=== PATIENT | female | born 1935 | race Caucasian/White ===

== ENCOUNTER 2017-10-17 13:50 | Inpatient (IN) | payer MEDICARE, OTHER ==
--- NOTE | 2017-10-17 14:08 | ED ---
Adult Trauma - History of Current Complaint Chief Complaint: EDWeakness Stated Complaint: WEAKNESS/FALL Time Seen by Provider: 10/17/17 14:03 Pain Intensity: 0 - Allergy/Home Medications Allergies/Adverse Reactions: Allergies Allergy/AdvReac Type Severity Reaction Status Date / Time MS Penicillins [Penicillins] Allergy Severe Rash Verified 09/13/13 15:45 MS Sulfa Drugs [Sulfa Drugs] Allergy Severe Rash Verified 09/13/13 15:45 PMH/Surg Hx/FS Hx/Imm Hx Endocrine/Hematology History: Denies: Hx Diabetes, Hx Thyroid Disease Cardiovascular History: Reports: Hx Hypertension Respiratory History: Denies: Hx Asthma, Hx Chronic Obstructive Pulmonary Disease (COPD) GI History: Denies: Hx Ulcer Musculoskeletal History: Denies: Hx Osteoporosis - Cancer History Hx Chemotherapy: No Hx Radiation Therapy: No - Surgical History Surgery Procedure, Year, and Place: Bilateral TKR 1994, hiatal hernia repair x2 2009, bilat. knee replacements Infectious Disease History: No Infectious Disease History: Denies: Hx Hepatitis, Hx Human Immunodeficiency Virus (HIV), Traveled Outside the [place] in Last 30 Days - Social History Alcohol Use: Occasionally Alcohol Amount: WINE W/ MEALS Substance Use Type: Reports: None Hx Tobacco Use: No Smoking Status (MU): Never Smoked Tobacco Physical Exam Vital Signs On Initial Exam: Initial Vitals Temp Pulse Resp BP Pulse Ox 98.5 F 66 20 133/97 94 10/17/17 13:55 10/17/17 13:55 10/17/17 13:55 10/17/17 13:55 10/17/17 13:55 Diagnostics - Vital Signs Vital Signs Temp Pulse Resp BP Pulse Ox 10/17/17 13:55 98.5 F 66 20 133/97 94 - Laboratory Lab Statement: Any lab studies that have been ordered have been reviewed, and results considered in the medical decision making process. Discharge - Discharge Plan Referrals: Nilsa Valencia MD [Primary Care Provider] -
--- NOTE | 2017-10-17 14:10 | ED ---
Head Injury - HPI Summary HPI Summary: This is scribe Quintin Frederick documenting for attending Omreo Tabares MD. Patient is a 82 y/o F BIBA w c/o falling from a standing position and hitting her head on the floor today at around 12:30. She notes she was at baseline health in the morning today. She states she stood up from a sitting position when she suddenly collapsed. She was not able to get up from the floor. Therefore, she activated her alarm and EMS appear to the house. On triage, it is reported she felt dizzy but in the room she denies dizziness during the episode. LOC is denied in the room as well. On triage, pain is denied. Patient denies chest pain, hip pain, back pain, blurred vision, SOB, and nausea. She reports she may have had a headache after falling. However, patient notes LE edema. Any similar prior episodes are denied. On triage, nothing is noted to aggravate/alleviate Sx. Home medications and allergies are noted. - History Of Current Complaint Chief Complaint: EDWeakness Stated Complaint: WEAKNESS/FALL Time Seen by Provider: 10/17/17 14:03 Hx Obtained From: Patient Mechanism Of Injury: Fall From A Standing Position Onset/Duration: Started Hours Ago - fall occurred around 12:30 Severity Currently: None - on triage, pain is denied Pain Intensity: 0 Pain Scale Used: 0-10 Numeric - 0/10 Aggravating Factor(s): Other: - Nothing Alleviating Factor(s): Other: - Nothing Associated Signs And Symptoms: Swelling - bilateral LE edema is noted, Headache - maybe, Other: - NEGATIVE: chest pain, hip pain, back pain, blurred vision, SOB , LOC, dizziness and nausea - Allergies/Home Medications Allergies/Adverse Reactions: Allergies Allergy/AdvReac Type Severity Reaction Status Date / Time Penicillins Allergy Intermediate Rash Verified 10/17/17 14:22 Sulfa (Sulfonamide Allergy Intermediate Rash Verified 10/17/17 14:22 Antibiotics) Home Medications: Home Medications Acetaminophen [Acetaminophen ER] 1,300 mg PO DAILY 10/17/17 [History Confirmed 10/17/17] Acetaminophen/Diphenhydramine [Acetaminophen Pm Caplet] 1 - 2 each PO BEDTIME PRN 10/17/17 [History Confirmed 10/17/17] Alendronate (NF) [Fosamax (NF)] 70 mg PO WEEKLY 10/17/17 [History Confirmed ] Zdkwi-I-Kwlvapsqisxqm [Beano Meltaways] 2 tab PO DAILY PRN 10/17/17 [History Confirmed 10/17/17] Aspirin EC TAB* [Ecotrin EC Low Dose 81 MG*] 81 mg PO DAILY 10/17/17 [History Confirmed 10/17/17] Atorvastatin* [Lipitor*] 40 mg PO DAILY 10/17/17 [History Confirmed 10/17/17] Chlorthalidone TAB* [Hygroton TAB*] 25 mg PO DAILY 10/17/17 [History Confirmed 10/17/17] Clobetasol 0.05% OINT* 1 applic TOPICAL BID PRN 10/17/17 [History Confirmed ] Diclofenac 1% GEL (NF) [Voltaren 1% GEL (NF)] 2 g TOPICAL QID 10/17/17 [History Confirmed 10/17/17] Etanercept SYR (NF) [Enbrel (NF)] 50 mg SUBCUT WEEKLY 10/17/17 [History Confirmed 10/17/17] Fluticasone NASAL SPRAY 50MCG* [Flonase NASAL SPRAY 50MCG*] 2 spray BOTH NARES DAILY 10/17/17 [History Confirmed 10/17/17] Losartan TAB* [Cozaar TAB*] 100 mg PO DAILY 10/17/17 [History Confirmed 10/17/17 ] Menthol/Camphor [Sarna] 1 applic TOPICAL DAILY PRN 10/17/17 [History Confirmed 10/17/17] Multivit with Iron,Minerals [Spectravite Senior] 1 each PO DAILY 10/17/17 [ History Confirmed 10/17/17] Pantoprazole TAB (NF) [Protonix TAB (NF)] 40 mg PO DAILY 10/17/17 [History Confirmed 10/17/17] Phenylephrine HCl [Sinus PE Decongestant] 10 mg PO Q4H PRN 10/17/17 [History Confirmed 10/17/17] Polyethylene Glycol 3350* [Miralax*] 17 g PO BID PRN 10/17/17 [History Confirmed 10/17/17] Triamcinolone 0.5% CREAM(NF) [Triamcinolone 0.5% CREAM*] 1 applic TOPICAL BID PRN 10/17/17 [History Confirmed 10/17/17] Verapamil SR TAB* [Calan Sr TAB*] 240 mg PO BID 10/17/17 [History Confirmed ] amLODIPine TAB* [Norvasc 5 mg TAB*] 5 mg PO DAILY 10/17/17 [History Confirmed ] diPHENhydraMINE PO* [Benadryl PO 25 MG TAB*] 25 mg PO Q6H PRN 10/17/17 [History Confirmed 10/17/17] PMH/Surg Hx/FS Hx/Imm Hx Endocrine/Hematology History: Denies: Hx Diabetes, Hx Thyroid Disease Cardiovascular History: Reports: Hx Hypertension Respiratory History: Denies: Hx Asthma, Hx Chronic Obstructive Pulmonary Disease (COPD) GI History: Denies: Hx Ulcer Musculoskeletal History: Denies: Hx Osteoporosis - Cancer History Hx Chemotherapy: No Hx Radiation Therapy: No - Surgical History Surgery Procedure, Year, and Place: Bilateral TKR 1994, hiatal hernia repair x2 2009, bilat. knee replacements Infectious Disease History: No Infectious Disease History: Denies: Hx Hepatitis, Hx Human Immunodeficiency Virus (HIV), Traveled Outside the [place] in Last 30 Days - Family History Known Family History: Negative: Blood Disorder - Social History Alcohol Use: Occasionally Alcohol Amount: WINE W/ MEALS Substance Use Type: Reports: None Hx Tobacco Use: No Smoking Status (MU): Never Smoked Tobacco Review of Systems Negative: Blurred Vision Negative: Chest Pain Negative: Shortness Of Breath Negative: Nausea Positive: Edema - bilateral LE, Other - NEGATIVE: hip pain, back pain Neurological: Other - NEGATIVE: dizziness Positive: Headache - maybe . Negative: Syncope All Other Systems Reviewed And Are Negative: Yes Physical Exam - Summary Physical Exam Summary: VITAL SIGNS: Reviewed. GENERAL: Patient is an elderly, fragile female who is lying comfortable in the stretcher. Patient is not in any acute respiratory distress. HEAD AND FACE: No signs of trauma. No ecchymosis, hematomas or skull depressions. No sinus tenderness. EYES: PERRLA, EOMI x 2, No injected conjunctiva, no nystagmus. EARS: Hearing grossly intact. Ear canals and tympanic membranes are within normal limits. MOUTH: Oropharynx within normal limits. NECK: Supple, trachea is midline, no adenopathy, no JVD, no carotid bruit, no c- spine tenderness, neck with full ROM. CHEST: Symmetric, no tenderness at palpation LUNGS: Clear to auscultation bilaterally. No wheezing or crackles. CVS: Regular rate and rhythm, S1 and S2 present, no murmurs or gallops appreciated. ABDOMEN: Soft, non-tender. No signs of distention. No rebound no guarding, and no masses palpated. Bowel sounds are normal. EXTREMITIES: FROM in all major joints, LE edema, no cyanosis or clubbing. NEURO: Alert and oriented x 3. No acute neurological deficits. Speech is normal and follows commands. SKIN: Dry and warm Triage Information Reviewed: Yes Vital Signs On Initial Exam: Initial Vitals Temp Pulse Resp BP Pulse Ox 98.5 F 66 20 133/97 94 10/17/17 13:55 10/17/17 13:55 10/17/17 13:55 10/17/17 13:55 10/17/17 13:55 Vital Signs Reviewed: Yes Diagnostics - Vital Signs Vital Signs Temp Pulse Resp BP Pulse Ox 10/17/17 13:55 98.5 F 66 20 133/97 94 - Laboratory Result Diagrams: 10/17/17 14:17 10/17/17 14:17 Lab Statement: Any lab studies that have been ordered have been reviewed, and results considered in the medical decision making process. - Radiology CXR Xray Interpretation: No Acute Changes Radiology Interpretation Completed By: Radiologist - No active disease. This report was reviewed by ED physician. - CT Cervical Spine CT CT Interpretation: Positive (See Comments) CT Interpretation Completed By: Radiologist - No evidence for fracture or subluxation. Moderate cervical spondylosis. Bilateral thyroid nodules recommend an outpatient thryoid ultrasound for further evaluation. This report was reviewed by ED physician. Brain CT CT Interpretation: No Acute Changes CT Interpretation Completed By: Radiologist - No acute intracranial pathology. Chronic small vessel ischemic change. This report was reviewed by ED physician. 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/Release Non-Paretic Hand: Both Correctly Best Gaze (Only Horizontal Eye Movement): Normal Visual Field Testing: No Visual Loss Facial Paresis-Pt to Smile & Close Eyes or Grimace Symmetry: Normal/Symmetrical Motor Function - Right Arm: No Drift-Holds 10 Seconds Motor Function - Left Arm: No Drift-Holds 10 Seconds Motor Function - Right Leg: No Drift-Holds 10 Seconds Motor Function - Left Leg: No Drift-Holds 10 Seconds Limb Ataxia-Must be out of Proportion to Weakness Present: Present in Two Limbs Sensory (Use Pinprick to Test Arms/Legs/Trunk/Face): Normal Best Language (Describe Picture, Name Items): No Aphasia Dysarthria (Read Several Words): Normal Extinction and Inattention: No Abnormality Total Score: 2 Re-Evaluation - Re-Evaluation First Eval Re-Evaluation Time: 15:55 Comment: Patient's condition was reviewed. After re-evaluation, it was determined that a consult with Dr. Fernandez was needed. Second Eval Re-Evaluation Time: 16:57 Comment: Discussed labs and test results as well as the decision to admit the patient to [facility] [place]. Head Injury Course/Dx Assessment/Plan: This patient is an 82-year-old female who presents to the emergency department with a chief complaint of an accidental fall and unable to get up from the floor. Patient reports that approximately between 12 and 12:30 today her knees buckle down and she fell down. She denies any loss of consciousness, she reports that she had possibly had a headache as the floor, but she was not able to get up from the floor. Therefore and she activated alarm and EMS appear to the house. Patient denies any pain, she is able to move all her extremities and she is alert and oriented 3. Initial exam the patient is alert and oriented 3 and she has not neurological focal deficits except for slight ataxia. NIH score it was equal to 1. Test results without any significant abnormality except for potassium level of 3.2, creatinine of 1.21, glucose 124. Urinalysis is negative for UTI. Head CT impression: No acute interconnected pathology. Chronic vessel ischemic changes. Chest x-ray impression: No acute cardiopulmonary disease. Since the patient had ataxia I discussed the case with Dr. 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 Therefore he recommends aspirin, Plavix and admission to the hospitalist. He will order an MRI and MRA a from the pain and carotid ultrasound. He will also follow with the results. The patient continues to be hemodynamically stable and she is alert and 3. Patient agrees to be admitted to the hospital. I discussed the my findings test results and the plan with Dr. Valencia was the primary care physician and she recommends for the hospitalist service to admit the patient and she will see the patient the morning. Therefore I discussed the case with Dr. Tomlinson from the hospitalist services and she accepted the patient for admission. Patient is hemodynamically stable alert and 3 - Diagnoses Provider Diagnoses: Ataxia, Unsteady gait, Ischemic stroke, Fall from standing - Physician Notifications Discussed Care Of Patient With: Mayra Fernandez Time Discussed With Above Provider: 16:06 Instructed by Provider To: Other - 16:06 --Dr. Fernandez was consulted. He will review patient in the room. 16:30 -- Dr. Fernandez talked to Dr. Tabares about the patient's case. He recommends admission to hospital. 16:36 -- Dr. Tomlinson was consulted; she accepts patient for admission to hospital. 17:02 -- Dr. Valencia was consulted as the patient belongs to Dr. Valencia. Dr. Valencia will see the patient tomorrow morning. Discharge - Sign-Out/Discharge Documenting (check all that apply): Patient Departure - admit - Discharge Plan Condition: Good Disposition: ADMITTED TO [facility] Referrals: Nilsa Valencia MD [Primary Care Provider] -
[2017-10-17 14:29] LABS: ABS Basophils 0.1 10^3/ul (0-0.2); ABS Eosinophils 0.1 10^3/ul (0-0.6); ABS Lymphocytes 1.1 10^3/ul (1.0-4.8); ABS Monocytes 0.7 10^3/ul (0-0.8); ABS Neutrophils 6.4 10^3/ul (1.5-7.7); ABS Nucleated RBC 0 10^3/ul; Eosinophil % 1.2 % (0-6); Hematocrit 39 % (35-47); Hemoglobin 13.5 g/dl (12.0-16.0); Mean Corpuscular HGB Conc 34 g/dl (31-36); Mean Corpuscular Hemoglobin 33 pg (27-31); Mean Corpuscular Volume 95 fL (80-97); Mean Platelet Volume 6.7 um3 (7.4-10.4); Nucleated Red Blood Cells % 0.1; Platelet Count 223 10^3/ul (150-450); Red Blood Count 4.15 10^6/ul (4.00-5.40); Red Cell Distribution Width 14 % (10.5-15); White Blood Count 8.3 10^3/ul (3.5-10.8)
[2017-10-17 14:34] LABS: Urine Appearance Clear; Urine Blood Negative (Negative); Urine Color Yellow; Urine Ketones Negative (Negative); Urine Protein Negative (Negative); Urine Specific Gravity 1.009 (1.010-1.030); Urine Urobilinogen Negative (Negative)
[2017-10-17 14:49] LABS: EGFR Non-African American 42.7 (>60)
[2017-10-17] MEDS ORDERED: Potassium Chlor TAB* 20 MEQ TAB.ER PO ONE (14:56)
--- NOTE | 2017-10-17 14:57 | RAD ---
INDICATION: Weakness COMPARISON: January 14, 2017 TECHNIQUE: An AP portable view obtained at 1426 hours is submitted. FINDINGS: Bones/Soft Tissues: There are no acute bony findings. 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 Lungs: There are no infiltrates. There is mild hyperinflation Pleura: There are no pleural effusions. Other: None IMPRESSION: NO ACTIVE DISEASE.
--- NOTE | 2017-10-17 15:31 | RAD ---
HISTORY: weakness, fall COMPARISONS: November 01, 2010 TECHNIQUE: Multiple contiguous axial CT scans were obtained of the head without intravenous contrast. FINDINGS: HEMORRHAGE/INFARCT: There is no hemorrhage or acute infarct. MASSES/SHIFT: There is no mass or shift. EXTRA-AXIAL SPACES: There are no extra-axial fluid collections. SULCI AND VENTRICLES: The sulci and ventricles are normal in size and position for the patient's stated age. CEREBRUM: There is hypoattenuation of the periventricular and subcortical white matter. BRAINSTEM: There are no focal parenchymal abnormalities. CEREBELLUM: There are no focal parenchymal abnormalities. VESSELS: There is calcification of the cavernous segments of the internal carotid arteries bilaterally and of the distal vertebral arteries bilaterally. PARANASAL SINUSES: The paranasal sinuses are clear. ORBITS: The orbits are unremarkable. BONES AND SOFT TISSUE: No bone or soft tissue abnormalities are noted. OTHER: None IMPRESSION: NO ACUTE INTRACRANIAL PATHOLOGY. CHRONIC SMALL VESSEL ISCHEMIC CHANGE
--- NOTE | 2017-10-17 15:54 | RAD ---
INDICATION: Trauma. COMPARISON: There are no prior studies available for comparison. TECHNIQUE: Contiguous axial sections were obtained from the skull base through the T1 vertebra. Images were reconstructed in the sagittal and coronal planes. FINDINGS: There is straightening of the cervical spine with loss of the normal cervical lordosis. No prevertebral soft tissue swelling or fracture is seen. At the C3-C4 level there is mild posterior uncinate process spurring. No spinal canal narrowing is present. There is mild bilateral neural foraminal narrowing. At C4-C5 level there is mild posterior uncinate process spurring. No significant spinal canal narrowing is present. There is mild to moderate bilateral neuroforaminal narrowing. At the C6-C7 level there is moderate posterior uncinate process spurring which causes mild to moderate spinal canal narrowing. There is moderate bilateral neural foraminal narrowing. At the C6-C7 level there is mild posterior uncinate process spurring which causes mild spinal canal narrowing. There is mild bilateral neural foraminal narrowing. The lung apices appear clear. There are bilateral thyroid nodules measuring up to 1.4 cm in size. IMPRESSION: 1. NO EVIDENCE FOR FRACTURE OR SUBLUXATION. 2. MODERATE CERVICAL SPONDYLOSIS. 3. BILATERAL THYROID NODULES RECOMMEND AN OUTPATIENT THYROID ULTRASOUND FOR FURTHER EVALUATION.
[2017-10-17] MEDS ORDERED: Clopidogrel TAB* 75 MG PO ONE (16:50)
[2017-10-17] MEDS ORDERED: Aspirin 81 mg CHEW TAB* 81 MG TAB.CHEW PO ONE (16:50)
[2017-10-17] MEDS ORDERED: Magnesium Hydroxide LIQ* 30 ML UDC PO PRN (17:32)
[2017-10-17] MEDS ORDERED: Al Hydrox/Mg Hydrox/Simet LIQ* 30 ML UDC PO PRN (17:32)
[2017-10-17] MEDS ORDERED: Albuterol 2.5 MG/3 ML NEB.SOL* (0.083%) INH PRN (17:32)
[2017-10-17] MEDS ORDERED: Acetaminophen TAB* 325 MG PO PRN (17:32)
[2017-10-17] MEDS ORDERED: Ondansetron INJ* 2 MG/ML VIAL IV PRN (17:32)
[2017-10-17] MEDS ORDERED: amLODIPine TAB* 5 MG PO SCH (18:00)
--- NOTE | 2017-10-17 20:09 | CONS ---
NEUROLOGY CONSULTATION REPORT: DATE OF CONSULT: 10/17/17 CONSULTING PHYSICIAN: Dr. Omeor Tabares. REASON FOR CONSULT: Ataxia. CHIEF COMPLAINT: Fall and inability to stand. 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 The patient woke up in normal state of health at 7:30 a.m. today. 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 At 12:30 p.m., the patient stood up from a seated position after sitting down for a few hours and then felt slightly lightheaded and she fell to the ground. Since the fall, she was unable to stand. She checked her extremities in the upper and lower extremities, she was moving just fine. She contacted EMS via [employer]. She did hit her head, but did not lose consciousness. She hit her head on the hardwood floor, but it was not significant head injury. Since then, the patient has trouble standing. She is ataxic towards the right side. She feels that she may have had a stroke. The patient does take aspirin 81 mg regularly, but ran out of aspirin approximately 1 week ago and she has not taken a dose since then. She denied any new focal weakness or paresthesias. She denied any headaches, visual disturbance, or swallowing dysfunction. She has never had any similar symptoms in the past. She has never lost consciousness when she fell. She denied any impairment in her bowel or bladder functions. The NIH stroke scale was done today at 1630 and showed an NIH stroke scale of 2 for motor dysmetria and pronator drift on the right. 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 She had a positive PPD on 09/16/12, anemia, atrophic vaginitis, tinnitus. MEDICATIONS: 1. Losartan 100 mg tablet daily. 2. Atorvastatin 40 mg tablet daily. 3. Verapamil extended release 240 mg 24-hour capsule. 4. Chlorthalidone 25 mg tablet. 5. Amlodipine 5 mg tablet daily. 6. Fluticasone 50 mcg nasal spray suspension, take 2 sprays nasally daily each nostril as needed for allergies. 7. Alendronate 70 mg tablet daily. 8. Clobetasol 0.05 topical cream. 9. Pantoprazole 40 mg tablet delayed release. 10. Triamcinolone acetonide topical cream. 11. Voltaren. 12. MiraLAX 17 g oral powder. FAMILY HISTORY: No family history of stroke or seizures. Her father suffered from tuberculosis. SOCIAL HISTORY: The patient lives alone. She enjoys drinking alcohol occasionally, but no more than 1 to 2 drinks a night. She denied any tobacco use. 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 REVIEW OF SYSTEMS: A 14-point review of systems was obtained and otherwise negative except for what was mentioned in the HPI. PHYSICAL EXAM: Vitals: Temperature of 98.5, heart rate 75, respiratory rate of 14, oxygen saturation of 96, and blood pressure of 159/93. General: This is a well-nourished, well-developed professional female, in no acute distress. She is cooperative. She is very pleasant. Head is atraumatic, normocephalic without any obvious abnormalities. Eyes: Conjunctivae/corneas are clear with no scleral icterus. Neck is supple and symmetrical with no carotid bruit. Lungs are clear to auscultation bilaterally. Nonlabored breathing. Cardiovascular: Regular rate and rhythm with normal S1, S2. Radial pulses are palpable. Extremities: Normal range of motion with no cyanosis. The patient has bunions and foot deformities bilaterally, right worse than left. Skin: No skin lesions or laceration. Psych: Affect is broad and normal mood. Easy to establish rapport. Neurological Examination: Mental Status: Awake, alert, and oriented to person, place, time, and general circumstances. Speech and language including expression, naming, repetition, and comprehensions were assessed and found to be normal. Cranial Nerves: Normal confrontation bilaterally. Pupils are mid range and reactive to light. Normal consensual response. Extraocular muscles are intact. No ptosis. No conjugate or asymmetrical nystagmus. Sensation is intact on forehead, cheeks, and jaw region. There is a slight loss of the nasolabial fold on the right, but not significant. No facial asymmetry. She is able to hear throughout the history process. Tongue is symmetrical and midline with no atrophy or fasciculation. Motor: Right/left, no abnormal movements. Questionable pronator drift on the right upper extremity. She has restricted range of motion in bilateral shoulders, right worse than left, due to arthritis. However, she does have elbow extension and shoulder abduction weakness, right greater than left, otherwise 5/5 strength in the distal upper extremities. She also has weakness on hip flexion and knee flexion as well as ankle dorsiflexion on the right side in a long tract pyramidal pattern. Otherwise, strength is 5/5 on the left lower extremity. Reflexes right/left: Brachioradialis 1/1, biceps 1/1, triceps 1/1, patella trace/trace, ankle 0/0, plantar new plantar response. On the right, 2+ on the left. Patella on the right is 3+, 1+ on the left. Ankles are absent throughout. New plantar responses. Sensation is intact to light touch throughout. She has absent vibration at the toes, but intact at the medial malleolus at 10 seconds. Proprioception is impaired at the toes. Dysmetria to [id number] and heel-to- cerna testing on the right side. Rapid alternative movement is decreased on the right upper extremity. Gait: Wide- based, ataxic towards the right and retropulsion. DIAGNOSTIC STUDIES/LAB DATA: WBC 8.3. Sodium of 140, potassium 3.2, creatinine is 1.21, glucose of 124, calcium of 10.7. Urinalysis, no dysuria. TSH is 1.19. CT head without contrast was completed today that showed no evidence of intracranial abnormality. Cervical spine CT was also completed and reported to show no evidence of fractures or subluxation. There is moderate cervical spondylosis, bilateral thyroid nodule. Recommend an outpatient thyroid ultrasound for further evaluation. Chest x-ray was completed and also reported to show no active disease and electrocardiogram was done and reported normal sinus rhythm. ASSESSMENT: 1. 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 On neurological examination, the patient has long tract pyramidal weakness on the right upper and lower extremities as well as some dysmetria concerning for an acute right cerebellar or left hemispheric ischemic infarction. The patient recently stopped taking aspirin for 1 week increasing her risk of developing a stroke. The mechanism of the stroke could be small vessel ischemia due to chronic hypertension; however, cardioembolic event will need to be also excluded. NIH stroke scale is 2. She is not a candidate for IV t-PA due to minimal neurological deficit as well as she is outside the therapeutic window. She was not a candidate for mechanical thrombectomy due to low NIH stroke scale. However , if her neurological examination continues to deteriorate, the patient will need CT head and neck stat for further evaluation. 2. Hypertension - allow permissive hypertension. 3. Possible dehydration - the patient's creatinine is slightly elevated. She has not had anything to drink since last night. RECOMMENDATIONS: Admit to the hospital service for further stroke workup and post stroke monitoring. Neuro checks every 4 hours x24 hours. MRI of the brain and MRA of brain were ordered. I also ordered carotid sonogram and a 2-D transthoracic echo. Please place on telemetry. We will check fasting lipid profile, vitamin B12, A1c. Please give her aspirin 81 mg x1 and Plavix 75 mg x1 now and continue both dual-antiplatelet therapy. We will decide on statin therapy depending on her LDL level. Allow permissive blood pressure control of systolic blood pressure less than 180. PT/OT/FIELD CR[employer] I [employer] evaluate and treat. Please perform a bedside swallow evaluation before giving her any diet. I also started the patient on IV fluid for the next 24 hours at a rate of 75 mL of normal saline an hour. Stroke education was completed. Do not place urinary catheter unless there is evidence of urinary retention. VTE prophylaxis with subcutaneous heparin injection 5000 units t.i.d. Long-term anticoagulation therapy is not indicated at this time. TIME SPENT: I spent a total of 75 minutes and greater than 50% was spent directly reviewing the medical chart, obtaining history, examining the patient, education and counseling, and discussing the treatment plan and prognosis with the patient and Dr. Tabares. I will continue to follow. [id number]/[facility] #: [id number] [facility]
--- NOTE | 2017-10-17 20:16 | RAD ---
INDICATION: Right arm dysmetria and ataxia. COMPARISON: Comparison is made with a prior CT of the brain from October 17, 2017 and a prior MRI of the brain from November 02, 2010. TECHNIQUE: Sagittal T1, axial T1, T2, susceptibility, FLAIR and diffusion weighted images were obtained. FINDINGS: The ventricles, cisterns and sulci are prominent consistent with diffuse atrophy. There are prominent areas of increased signal intensity on T2-weighted images present within the subcortical and periventricular white matter most consistent with severe chronic small vessel ischemic changes. There appears to be an old lacunar infarct within the left thalamus. No other focal abnormalities or mass effect are seen. There is a small focal area of restricted diffusion involving the cortex and subcortical white matter in the left parafalcine region in the left parietal lobe most consistent with an acute to subacute infarct. There is evidence of old hemosiderin deposition in the cerebellar hemispheres. The visualized portion of the paranasal sinuses and mastoid air cells appear clear. IMPRESSION: 1. SMALL ACUTE TO SUBACUTE NONHEMORRHAGIC INFARCT IN THE CORTEX AND SUBCORTICAL WHITE MATTER IN THE PARA MIDLINE LEFT PARIETAL LOBE. 2. ATROPHY AND FINDINGS CONSISTENT WITH SEVERE CHRONIC SMALL VESSEL ISCHEMIC CHANGES. 3. OLD LACUNAR INFARCT IN THE LEFT THALAMUS.
--- NOTE | 2017-10-17 20:20 | RAD ---
INDICATION: Right arm dysmetria and ataxia. COMPARISON: Comparison is made with a prior MRI of the brain from October 17, 2017. TECHNIQUE: A 3-D time of flight magnetic resonance angiogram was performed around the [place] of [place]. Images were reconstructed in the maximum intensity projection format. FINDINGS: The internal carotid, anterior and middle cerebral arteries appear patent without evidence for high-grade stenosis or occlusion. The vertebral, basilar and posterior cerebral arteries appear patent without evidence for high-grade stenosis or occlusion. The right posterior cerebral artery arises from the posterior communicating artery consistent with normal variation. There is a dominant left vertebral artery. No aneurysm or vascular malformation is seen. IMPRESSION: NEGATIVE EXAM.
[2017-10-17] MEDS: NS 0.9% 1000 ML* 1,000 ML IV SCH (20:22)
--- NOTE | 2017-10-17 20:25 | HP ---
CC: Dr. Valencia * ADMISSION HISTORY AND PHYSICAL: DATE OF ADMISSION: 10/17/17 PATIENT OF: Alecia Tomlinson DO. PRIMARY CARE PROVIDER: Dr. Nilsa Valencia. ATTENDING HOSPITALIST: Alecia Tomlinson DO.* (DICTATED BY JODI MIRAMONTES) CHIEF COMPLAINT: Weakness and fall at home. 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 The patient notes that she has been in her usual state of health until this morning when she got up and was walking at home and suddenly collapsed. She maintained her consciousness and denied any head trauma or bony injury. She laid on the ground and was not able to get up at all. She has never experienced any similar complaints in the past. She denied any headache, dizziness, chest pain, double vision, nausea, vomiting, or diaphoresis prior to her falling episode. She denied any slurred speech, drooling, or any history of CVA or TIA in the past. She was able to ask for a help and was brought by ambulance for evaluation in emergency room. She had a laboratory workup that revealed normal CBC and normal chemistry panel with exception for mild dehydration as well as decreased potassium. She had a brain CT that showed no evidence of intracranial bleed. Her chest x-ray was also showed no acute changes. Neurological evaluation was performed by Dr. Fernandez, who suspected ischemic stroke given her ongoing symptoms and MRI was ordered and pending at the time of admission. The patient herself reports doing very well with the exception that she cannot bear weight or stay up on her feet. She is able to move her extremities both upper and lower in bed, talk with clean speech and passed her dysphagia evaluation and has been eating and drinking in the emergency room. A call was made to Dr. Valencia by the emergency department provider, who explained the case and the patient was accepted to be admitted by the hospitalist services to telemetry unit for further evaluation of possible CVA. PAST MEDICAL HISTORY: Significant for: 1. Hypertension. 2. GERD. 3. Hyperlipidemia. 4. Rheumatoid arthritis. 5. Allergic rhinitis. 6. Chronic pain. 7. Chronic constipation. 8. Osteoarthritis. PAST SURGICAL HISTORY: Includes: 1. Bilateral knee replacement in 1994. 2. Benign lesions removed from her tongue in the past. 3. Foot surgery in 1995. 4. Tubal ligations many years ago. 5. Matilde fundoplication back in 2010, and revised again after a slipped Matilde by Dr. Pearson. 6. Laparoscopic repair of large paraesophageal hiatal hernia back in 2010 as well. 7. Most recently an aortic aneurysm repair in 2014. CURRENT MEDICATIONS: Her medications at home include: 1. Tylenol 650 mg p.o. q.6 hours as needed for pain or fever. 2. Tylenol PM 1 to 2 tablets q.h.s. 3. Fosamax 70 mg p.o. weekly. 4. Norvasc 5 mg p.o. daily. 5. Aspirin 81 mg p.o. daily. 6. Lipitor 40 mg p.o. daily. 7. Hygroton 25 mg p.o. daily. 8. Diclofenac 1% gel topical 4 times a day as prescribed. 9. Benadryl 25 mg p.o. q.6 hours for allergic reaction. 10. Enbrel 50 mg subcu injection weekly. 11. Flonase nasal spray 50 mcg 2 sprays in both nares daily. 12. Losartan 100 mg p.o. daily. 13. Multivitamin with iron 1 tablet p.o. daily. 14. Protonix 40 mg p.o. daily. 15. MiraLAX 17 g p.o. b.i.d. as needed for constipation. 16. Sinus PE Decongestant 10 mg q.4 hours as needed for rhinorrhea. 17. Verapamil 240 mg p.o. b.i.d. ALLERGIES: Include PENICILLINS and SULFONAMIDE antibiotics. FAMILY HISTORY: She has a sister with breast cancer, father with hypertension and tuberculosis. 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 She lives alone, very independent. She has a son, who lives in [place], [place]. She never smoked and continued to drink occasional alcoholic beverage. She described her next door neighbor as her health care proxy carrier and she confirmed her DNR status and MOLST from is updated at primary care physician per the patient. REVIEW OF SYSTEMS: See HPI. Otherwise, 14 points review of systems were performed and were essentially negative. PHYSICAL EXAMINATION GENERAL: She is a pleasant, elderly female, healthy appearing, and in no acute distress or discomfort at the time of admission. VITAL SIGNS: Most recent set of vitals was blood pressure of 136/111, temperature of 98.5, pulse of 75, respirations of 17 with O2 sat of 98% on room air. HEENT: Head is normocephalic, atraumatic. Sclerae anicteric. PERRLA. EOMs intact. Oropharynx is pink and moist. NECK: Supple. Trachea midline. No cervical adenopathy or thyromegaly. LUNGS: Clear to auscultation bilaterally. HEART: Regular rate and rhythm. There is a very faint systolic murmur heard, but no gallops or rubs. BACK: Normal curvature. No CVA tenderness. ABDOMEN: Soft, nontender, nondistended. There is no hernias, masses, or hepatosplenomegaly. EXTREMITIES: Without cyanosis, clubbing or edema. Handgrip was equal bilaterally. Tongue was midline. RECTAL: Exam deferred at this time. NEUROLOGIC: Full neurological exam was done by Dr. Fernandez during his consultation. Please refer to his consult note. LABORATORY WORKUP: CBC with white count of 8300, hemoglobin of 13.5, hematocrit of 39, and platelets of 223. Her chemistry panel was sodium of 140, potassium 3.2, chloride 101, CO2 of 30, BUN of 23, and creatinine of 1.2. Her glucose was 124, lactic acid 1.5. LFTs, CRP, TSH all within normal limits. BNP was slightly elevated at 273. ACCESSORY DIAGNOSTIC DATA: Brain CT with no acute findings. Chest x-ray, no active disease. Cervical spine CT with degenerative changes noted. EKG showed sinus rhythm, no ST changes. IMPRESSION: An 82-year-old female with past medical history significant for hypertension, rheumatoid arthritis, osteoporosis, and hyperlipidemia, who presented to the emergency room with sudden onset of lower extremity weakness resulting in a fall and inability to get up and ambulate, who was evaluated by neurologic services and have high suspicion for ischemic cerebrovascular accident. ASSESSMENT AND PLAN: 1. Probable cerebrovascular accident. The patient will be admitted to the telemetry floor for close observation and neurology checks every [address] Fernandez has seen the patient in consultation already and MRI, MRA, as well as carotid ultrasounds are pending at the time of admission. The patient has expressed good speech and has no upper body neurological deficit. She had passed her swallowing evaluation and she is allowed to eat regular diet for the time being. She was given full dose aspirin in the ED and will continue her baby aspirin. She was also given a dose of Plavix in the ED. She appears to be slightly dehydrated and IV fluids were ordered by Dr. Fernandez. 2. Hypertension. I will maintain her on her regular medication; however, we would like her blood pressure to maintain slightly above normal to reassure perfusion to her brain. She may take her verapamil dose this evening and we will reassess in the morning before given her losartan or verapamil on the next day. I will also maintain her aspirin dose on a daily basis as well as her Lipitor for possibility of cerebrovascular accident. 3. Hyperlipidemia. She will continue her statin therapy. 4. Seasonal allergies and rhinitis. We will continue her Flonase spray as well as Benadryl to take as needed. 5. DVT prophylaxis. The patient is a high risk and will be covered with subcu heparin. 6. Code status. She confirmed her DNR status and she tells me that her form is updated by her primary care physician. 7. FEN. We will keep her on regular unrestricted diet and follow her up accordingly. 8. Disposition. Admit to telemetry for close observation, neurologic checks and await MRI, MRA, as well as carotid ultrasound results. TIME SPENT: Approximately 60 minutes was spent admitting this patient with greater than 50% on taking history and performing physical exam. I have discussed the case with my attending, Dr. Tomlinson, who agreed to plan of care. JODI MIRAMONTES [id number]/[facility] #: [id number] EMELI
[2017-10-17] MEDS: Heparin VIAL(*) 5000 UNITS/ML VIAL (FIVE THOUSAND) SUBCUT SCH (20:50)
[2017-10-17] MEDS ORDERED: Verapamil SR TAB* 240 MG PO SCH (21:00)
[2017-10-18] MEDS: oxyCODONE/Acetamin 5/325 MG* TAB PO PRN ×2 (01:30→20:02)
[2017-10-18] MEDS: diPHENhydraMINE PO* 25 MG PO PRN (01:31)
[2017-10-18] MEDS: Heparin VIAL(*) 5000 UNITS/ML VIAL (FIVE THOUSAND) SUBCUT SCH ×3 (05:26→20:50)
[2017-10-18 05:59] LABS: ABS Basophils 0.1 10^3/ul (0-0.2); ABS Eosinophils 0.2 10^3/ul (0-0.6); ABS Lymphocytes 2.1 10^3/ul (1.0-4.8); ABS Monocytes 0.8 10^3/ul (0-0.8); ABS Neutrophils 4.8 10^3/ul (1.5-7.7); ABS Nucleated RBC 0 10^3/ul; Eosinophil % 2.5 % (0-6); Hematocrit 32 % (35-47); Hemoglobin 11.1 g/dl (12.0-16.0); Lymphocyte % 26.4 % (25-47); Mean Corpuscular HGB Conc 34 g/dl (31-36); Mean Corpuscular Hemoglobin 32 pg (27-31); Mean Corpuscular Volume 94 fL (80-97); Mean Platelet Volume 6.4 um3 (7.4-10.4); Nucleated Red Blood Cells % 0.1; Platelet Count 176 10^3/ul (150-450); Red Blood Count 3.43 10^6/ul (4.00-5.40); Red Cell Distribution Width 13 % (10.5-15)
[2017-10-18 06:14] LABS: EGFR Non-African American 42.3 (>60)
--- NOTE | 2017-10-18 07:37 | RAD ---
INDICATION: Carotid stenosis COMPARISON: None TECHNIQUE: Transverse and longitudinal scans of the carotid and vertebral arteries were performed with espinoza scale, color Doppler, and spectral Doppler imaging. Stenosis criteria is based on flow velocities that correlate with visual internal carotid artery diameter (NASCET criteria) FINDINGS: Right carotid: There is moderate calcific plaque involving the bifurcation. There is no spectral broadening. The peak systolic velocity of the internal carotid artery is 126 cm/s and the peak diastolic velocity 27 cm/s. The ICA/CCA ratio is calculated at 2.1. This corresponds to a 50-69% diameter stenosis. Left carotid: There is moderate calcific plaque involving the bifurcation. There is no spectral broadening. The peak systolic velocity of the internal carotid artery is 94 cm/s and the peak diastolic velocity 20 cm/s. The ICA/CCA ratio is calculated at 1.5. This corresponds to a less than 50% diameter stenosis. Right vertebral: Right vertebral waveforms are normal and the flow is antegrade. Left vertebral: Left vertebral waveforms are normal and the flow is antegrade. IMPRESSION: 1. 50-69% diameter stenosis right internal carotid artery with associated calcific plaque formation. 2. Less than 50% diameter stenosis left internal carotid artery with associated calcific plaque formation. CPT II Codes: 3100F PQRS
[2017-10-18] MEDS ORDERED: NS 0.9% 500 ML* 500 ML IV ONE (08:30)
[2017-10-18] MEDS: Aspirin EC TAB* 81 MG TAB.EC PO SCH (08:39)
[2017-10-18] MEDS: Atorvastatin* 40 MG TAB PO SCH (08:39)
[2017-10-18] MEDS: Fluticasone NASAL SPRAY 50MCG* 16 gm SPRAY BTL BOTH NARES SCH (08:39)
[2017-10-18] MEDS: CMC: Pantoprazole TAB (NF) 40 MG TAB PO SCH (08:39)
--- NOTE | 2017-10-18 08:48 | PN ---
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 BP has been extremely low overnight and this morning. She was given Verapamil yesterday. She has more drooping of the right side of face and propioception loss on the right upper and lower extremities. She feels "foggy" and "oozy" this morning. This most likely correlates with the low BP. She tolerated her breakfast without choking or coughing. She is requesting more coffee. She confirmed to me today that her last known well time was 730 a.m. yesterday. ROS: she denied headache, visual disturbance, CP, SOB, or palpitations. Objective Active Medications: Acetaminophen (Tylenol Tab*) 650 mg PO Q4H PRN PRN Reason: FEVER/PAIN Al Hydrox/Mg Hydrox/Simethicone (Maalox Plus*) 30 ml PO Q6H PRN PRN Reason: INDIGESTION Albuterol (Ventolin 2.5 Mg/3 Ml Neb.Yana*) 2.5 mg INH [id number] AWAKE PRN PRN Reason: sob/wheezing Aspirin (Aspirin Ec Tab*) 81 mg PO DAILY [facility] Last Admin: 10/18/17 08:39 Dose: 81 mg Atorvastatin Calcium (Lipitor*) 40 mg PO DAILY [facility] Last Admin: 10/18/17 08:39 Dose: 40 mg Chlorthalidone (Hygroton Tab*) 25 mg PO DAILY [facility] Diphenhydramine HCl (Benadryl Po*) 25 mg PO Q6H PRN PRN Reason: Allergy Symptoms Last Admin: 10/18/17 01:31 Dose: 25 mg Fluticasone Propionate (Flonase Nasal Logan 50mcg*) 2 spray BOTH NARES DAILY [facility] Last Admin: 10/18/17 08:39 Dose: 2 spray Heparin Sodium (Porcine) (Heparin Vial(*)) 5,000 units SUBCUT Q8HR [facility] Last Admin: 10/18/17 05:26 Dose: 5,000 units Sodium Chloride (Ns 0.9% 1000 Ml*) 1,000 mls @ 75 mls/hr IV PER RATE MEET Stop: 10/18/17 23:59 Last Admin: 10/17/17 20:22 Dose: 75 mls/hr Sodium Chloride (Ns 0.9% 500 Ml*) 500 mls @ 1,000 mls/hr IV ONCE ONE Stop: 10/18/17 08:59 Last Admin: 10/18/17 08:39 Dose: 1,000 mls/hr Magnesium Hydroxide (Milk Of Magnesia Liq*) 30 ml PO Q4H PRN PRN Reason: CONSTIPATION Ondansetron HCl (Zofran Inj*) 4 mg IV Q4H PRN PRN Reason: NAUSEA/VOMITING Oxycodone/Acetaminophen (Percocet 5/325 Tab*) 1 tab PO Q4H PRN PRN Reason: Pain Last Admin: 10/18/17 01:30 Dose: 1 tab Pantoprazole Sodium (Protonix Tab (Nf)) 40 mg PO DAILY [facility] Last Admin: 10/18/17 08:39 Dose: 40 mg Vital Signs 10/17/17 10/17/17 10/17/17 13:55 14:19 15:00 Temperature 98.5 F Pulse Rate 66 64 Respiratory 20 13 20 Rate Blood Pressure 133/97 (mmHg) O2 Sat by Pulse 94 98 Oximetry 10/17/17 10/17/17 10/17/17 15:31 15:47 16:00 Temperature Pulse Rate 60 75 64 Respiratory 14 23 Rate Blood Pressure 144/88 159/93 (mmHg) O2 Sat by Pulse 96 98 Oximetry 10/17/17 10/17/17 10/17/17 16:01 16:31 17:00 Temperature Pulse Rate 72 Respiratory 21 22 16 Rate Blood Pressure 155/103 169/108 (mmHg) O2 Sat by Pulse 98 Oximetry 10/17/17 10/17/17 10/17/17 17:01 17:32 18:41 Temperature Pulse Rate 69 Respiratory 17 17 Rate Blood Pressure 168/116 136/111 (mmHg) O2 Sat by Pulse 97 Oximetry 10/17/17 10/17/17 10/17/17 18:46 19:20 19:30 Temperature 98.3 F 98.2 F Pulse Rate 77 66 Respiratory 16 16 16 Rate Blood Pressure 133/90 125/68 (mmHg) O2 Sat by Pulse 98 98 Oximetry 10/18/17 10/18/17 10/18/17 00:29 01:30 01:31 Temperature 98.0 F Pulse Rate 75 Respiratory 20 16 16 Rate Blood Pressure 124/80 (mmHg) O2 Sat by Pulse 97 Oximetry 10/18/17 10/18/17 10/18/17 04:15 04:49 07:34 Temperature 98.0 F 98.1 F Pulse Rate 64 58 Respiratory 16 18 12 Rate Blood Pressure 101/60 93/58 (mmHg) O2 Sat by Pulse 96 96 Oximetry 10/18/17 08:24 Temperature Pulse Rate Respiratory Rate Blood Pressure 100/59 (mmHg) O2 Sat by Pulse Oximetry Oxygen Devices in Use Now: None Neurology Exam: General: Pleasant elderly frail female in no acute distress. She is smiling and cooperating with the examiner. HEENT: Normocephelic/atraumstic, sclera anicteric Neck: Supple Chest: Clear to auscultation bilaterally Cardiovascular: Regular rate and rhythm. She has a holosystolic murmur graded as 2/6 and non-radiating. Extremities: No cyanosis, or edema. She has foot deformities including bunions. Anu's nodes in upper extremities. Neurological Findings: Mental status: awake, alert, and oriented to person, place, time and general circumstances. Speech: fluent without dysarthria, repetition intact Cranial Nerve: PEERL, EOM intact, VFF, no nystagmus. She has right facial droop. Decrease sensation on the right side of face. Motor: long tract pyramidal weakness graded as 4/5 on the right upper and lower extremity. Positive pronator drift on the right. Sensation: Impaired propioception on the right great toe. Decrease sensation to light touch on the right compared to the left. Deep Tendon Reflex: mute plantar response on right and flexor on the left. 1+ reflexes in the upper extremity, 0 in the lower extremities. Coordination: reduced rapid alternative movement on the right. Dysmetria to finger to nose and heel to cerna on the right. Gait: not assessed due to hypotension. Result Diagrams: 10/18/17 05:45 10/18/17 05:45 Additional Lab and Data: Total cholesterol: 111 LDL: 50 Vitamin B12: 612 Diagnostic Imaging: Independently reviewed all following studies: CT head without contrast 10/17: no acute intracranial abnormalities MRI brain without contrast 10/17: acute small left parietal infarction in the MCA vascular distribution MRA head without contrast 10/17: no significant large vessel stenosis Carotid ultrasound 10/17: R ICA stenosis measuring 50-69% and left ICA measuring < 50%. Pending TTE with bubbly study EKG Data: Reviewed: Sinus rhythm. No afib. 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 She was found to have propioception loss and mild long tract weakness on the right. MRI brain showed left parietal lobe acute infarction. 1. 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 She was not a candidate for IV tPA due to low NIHSS and mostly due to outside the therapeutic window. She has no large vessel occlusion hence not a candidate for endovascular therapy. She was not on aspirin for one week before the stroke symptoms. Mechanism: suspect distal small vessel disease given her risk factors of age, aortic stenosis, and hypertension. We cannot entirely exclude a cardioembolic source. Recommendations: DAPT with aspirin 81 mg and Plavix 75 mg daily for 30 days then switch to aspirin 81 mg daily. Continue atorvastatin 40 mg nightly (home dose). No need for high intensity statin therapy since LDL is low and she's over the age of 75. Pending TTE with bubble study. Stroke education completed. Discussed the importance of taking anti-platelet therapy regularly. 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 She will need acute rehabilitation. 2. Symptomatic hypotension- discontinued Verapamil, amlodipine, and losartan. She only received Verapamil last night. SBP goal 140-<200 mmHg. I ordered for a one time bolus of NS 500 mL x 1. Placed head of bed flat. Recheck BP every 15 minutes until and elevate the HOB once her SBP is at least in the 120's mm Hg. 3. Asymptomatic R ICA stenosis- statin + DAPT 4. Hx of hypertension, aortic stenosis, and PVD TIME SPENT: 40 minutes of which greater than 50% was spent directly reviewing the medical chart, examining the patient, checking her BP after bolus, and discussing the treatment plan with the patient, bedside nurse, and Dr. Valencia (PCP). We will continue to follow. I will sign out to the neurologist automobile brakes bonder for the weekend.
[2017-10-18] MEDS ORDERED: Chlorthalidone TAB* 50 MG PO SCH (09:00)
[2017-10-18] MEDS ORDERED: Losartan TAB* 25 MG PO SCH (09:00)
[2017-10-18] MEDS: NS 0.9% 1000 ML* 1,000 ML IV SCH ×2 (09:21→20:51)
[2017-10-18] MEDS ORDERED: NS 0.9% 250 ML* 250 ML IV ONE ×2 (10:00→11:00)
[2017-10-18 10:23] LABS: Corrected Retic Count 0.8 % (0.5-1.5); Hematocrit for Retic CNT 33 % (35-47); Immature Retic Fraction 0.42; RBC Retic Count 3.45 10^6/ul (4.6-6.2)
[2017-10-18] MEDS: Potassium Chlor TAB* 20 MEQ TAB.ER PO SCH ×2 (10:52→13:54)
--- NOTE | 2017-10-18 22:12 | ECHO ---
Patient: NITZA ARNOLD [facility] Rec#: [id number] : 1935 Date: 10/18/2017 Age: 82y Height: 167.64 cm / 66.0 in Weight: 73.94 kg / 163.0 lbs Sex: F BSA: 1.83 Room#: 439 Admit Date#: 10/17/2017 Type: Inpatient Referring: Mayra Fernandez Reading: Jono Cantu MD Metal Cabinet Finisher: Sera Mcgraw VIRGEN CC: Nilsa Valencia MD Transthoracic Echocardiogram Indication: CVA BP: 100/59 HR: 61 Rhythm: NSR Findings History: HTN,GERD,HLD,admitted with CVA. Technical Comments: The study quality is good. Completed at 1307. Left Ventricle: The left ventricular chamber size is decreased. Septal wall hypertrophy is observed. The left ventricle appears hyperdynamic. The estimated ejection fraction is 60-65%. Abnormal left ventricular diastolic function is observed. Abnormal left ventricular diastolic filling is observed, consistent with impaired relaxation. Left Atrium: The left atrial chamber size is normal. Right Ventricle: The right ventricular cavity size is normal. The right ventricular global systolic function is normal. Right Atrium: The right atrial cavity size is normal. There is no patent foramen ovale visualized. There is no evidence of patent foramen ovale shunting. A patent foramen ovale is not demonstrated with color Doppler and agitated contrast. Aortic Valve: The aortic valve leaflets are moderately thickened. Mild aortic leaflet calcification is visualized. Systolic excursion of the aortic valve cusps is reduced. There is a trace of aortic regurgitation. There is moderate aortic stenosis. Highest aortic valve velocity was acquired with Pedoff in apical position. Mitral Valve: The mitral valve leaflets are moderately thickened. Calcified chordea noted. Mitral valve posterior leaflet calcification is visualized. Moderate subvalvular thickening of the mitral valve is visualized.Calcified posteromedial papillary muscle and subvalvular apparatus. The papillary muscle heads appear calcified. There is trace to mild mitral regurgitation. There is mild mitral stenosis. Tricuspid Valve: The tricuspid valve leaflets are normal. There is mild to moderate tricuspid regurgitation. There is evidence of borderline pulmonary hypertension. There is no tricuspid stenosis. Pulmonic Valve: The pulmonic valve appears normal. There is no evidence of pulmonic regurgitation. There is no pulmonic stenosis. Pericardium: The pericardium appears normal. Aorta: There is moderate dilatation of the ascending aorta. There is no dilation of the aortic root. Pulmonary Artery: The main pulmonary artery appears normal. Venous: The inferior vena cava is dilated. There is an approximate 50% respiratory change in the inferior vena cava dimension. Conclusions The left ventricle appears hyperdynamic. The estimated ejection fraction is 60-65%. Abnormal left ventricular diastolic filling is observed, consistent with impaired relaxation. Septal wall hypertrophy is observed. The aortic valve leaflets are moderately thickened. There is moderate aortic stenosis. The mitral valve leaflets are moderately thickened. Calcified posterior chordea noted. Mitral valve posterior leaflet calcification is visualized. Moderate subvalvular thickening of the mitral valve is visualized; Calcified posteromedial papillary muscle and subvalvular apparatus. There is trace to mild mitral regurgitation. There is mild mitral stenosis. There is mild to moderate tricuspid regurgitation. There is evidence of borderline pulmonary hypertension. There is moderate dilatation of the ascending aorta. Similar to 11/2014 except for mild progression in aortic stenosis. Measurements Name Value Normal Range RVIDd (AP) 2D 3.3 cm (0.9 - 2.6) RVDdMajor (2D) 3 cm (2.2 - 4.4) RAd ISD 4CH 4 cm (3.4 - 4.9) RA (A4C)W 3.1 cm (2.9 - 4.6) IVSd (2D) 1.1 cm (0.6 - 1) LVPWd (2D) 0.9 cm (0.6 - 1) LVIDd (2D) 3.4 cm (3.6 - 5.4) LVIDs (2D) 2 cm - LV FS (2D) 41 % (25 - 45) Aortic Annulus 2.2 cm (1.4 - 2.6) Ao root diameter (2D) 3.4 cm (2.1 - 3.5) Ascending Ao 4.1 cm (2.1 - 3.4) Aortic arch 2.9 cm (1.8 - 3.4) Descending Ao 0.3 cm - LA dimension (AP) 2D 3.5 cm (2.3 - 3.8) LAd ISD 4CH 4.1 cm (2.9 - 5.3) LA ISD 4CH W 3.5 cm (2.5 - 4.5) Name Value Normal Range LA ESV SP 4CH (A/L) 30 ml - LA ESV SP 2CH (A/L) 79 ml - LA ESV BP (A/L) 63 ml - LA ESV BP (A/L) index 34.04 ml/m2 - LA ESV SP 4CH (MOD) 29 ml - LA ESV SP 2CH (MOD) 75 ml - Name Value Normal Range MV E-wave Vmax 0.9 m/sec - MV deceleration time 270 msec - MV A-wave Vmax 1.1 m/sec - MV E:A ratio 0.8 ratio - LV septal e' Vmax 0.04 m/sec - LV lateral e' Vmax 0.06 m/sec - Name Value Normal Range AV Vmax 2.9 m/sec - AV VTI 64.2 cm - AV peak gradient 32.58 mmHg - AV mean gradient 16.95 mmHg - LVOT diameter 1.9 cm - LVOT Vmax 1 m/sec - LVOT VTI 26.1 cm - LVOT peak gradient 3.79 mmHg - LVOT mean gradient 1.81 mmHg - ЕЛЕНА (continuity Vmax) 1 cm2 - ЕЛЕНА (continuity VTI) 1.2 cm2 - AR PHT 469 msec - AR peak gradient 82.72 mmHg - Name Value Normal Range MR Vmax 5.8 m/sec - MR VTI 195.4 cm - Name Value Normal Range TR Vmax 2.6 m/sec - TR peak gradient 27 mmHg - RAP 8 mmHg - RVSP 35 mmHg - IVC diameter 2.3 cm - Name Value Normal Range PV Vmax 0.8 m/sec - PV peak gradient 2.46 mmHg -
[2017-10-19] MEDS: Heparin VIAL(*) 5000 UNITS/ML VIAL (FIVE THOUSAND) SUBCUT SCH ×3 (05:15→22:18)
[2017-10-19 05:20] LABS: Hematocrit 32 % (35-47); Hemoglobin 10.9 g/dl (12.0-16.0); Mean Corpuscular HGB Conc 34 g/dl (31-36); Mean Corpuscular Hemoglobin 32 pg (27-31); Mean Corpuscular Volume 95 fL (80-97); Mean Platelet Volume 6.6 um3 (7.4-10.4); Platelet Count 172 10^3/ul (150-450); Red Blood Count 3.36 10^6/ul (4.00-5.40); Red Cell Distribution Width 14 % (10.5-15); White Blood Count 6.7 10^3/ul (3.5-10.8)
[2017-10-19 05:38] LABS: EGFR Non-African American 47.2 (>60)
[2017-10-19] MEDS: Fluticasone NASAL SPRAY 50MCG* 16 gm SPRAY BTL BOTH NARES SCH (07:51)
[2017-10-19] MEDS: Atorvastatin* 40 MG TAB PO SCH (07:51)
[2017-10-19] MEDS: CMC: Pantoprazole TAB (NF) 40 MG TAB PO SCH (07:51)
[2017-10-19] MEDS: Aspirin EC TAB* 81 MG TAB.EC PO SCH (07:51)
[2017-10-19] MEDS ORDERED: Magnesium Sulfate IV 2 GM in NS 100 ML (Pharmacy Admixed) IV ONE (13:30)
[2017-10-19] MEDS: Clopidogrel TAB* 75 MG PO SCH (14:14)
[2017-10-19] MEDS: oxyCODONE/Acetamin 5/325 MG* TAB PO PRN (23:55)
[2017-10-20] MEDS: diPHENhydraMINE PO* 25 MG PO PRN (02:43)
[2017-10-20] MEDS: Heparin VIAL(*) 5000 UNITS/ML VIAL (FIVE THOUSAND) SUBCUT SCH ×3 (05:36→22:03)
[2017-10-20 06:50] LABS: ABS Basophils 0 10^3/ul (0-0.2); ABS Eosinophils 0.2 10^3/ul (0-0.6); ABS Lymphocytes 1.8 10^3/ul (1.0-4.8); ABS Monocytes 0.6 10^3/ul (0-0.8); ABS Neutrophils 4.8 10^3/ul (1.5-7.7); ABS Nucleated RBC 0 10^3/ul; Eosinophil % 2.9 % (0-6); Hematocrit 34 % (35-47); Hemoglobin 11.6 g/dl (12.0-16.0); Lymphocyte % 23.8 % (25-47); Mean Corpuscular HGB Conc 34 g/dl (31-36); Mean Corpuscular Hemoglobin 32 pg (27-31); Mean Corpuscular Volume 95 fL (80-97); Mean Platelet Volume 6.8 um3 (7.4-10.4); Nucleated Red Blood Cells % 0; Platelet Count 207 10^3/ul (150-450); Red Blood Count 3.58 10^6/ul (4.00-5.40); Red Cell Distribution Width 14 % (10.5-15); White Blood Count 7.5 10^3/ul (3.5-10.8)
[2017-10-20 07:07] LABS: EGFR Non-African American 47.2 (>60)
[2017-10-20] MEDS: Aspirin EC TAB* 81 MG TAB.EC PO SCH (08:38)
[2017-10-20] MEDS: CMC: Pantoprazole TAB (NF) 40 MG TAB PO SCH (08:38)
[2017-10-20] MEDS: Clopidogrel TAB* 75 MG PO SCH (08:38)
[2017-10-20] MEDS: Atorvastatin* 40 MG TAB PO SCH (08:38)
[2017-10-20] MEDS: Fluticasone NASAL SPRAY 50MCG* 16 gm SPRAY BTL BOTH NARES SCH (08:39)
--- NOTE | 2017-10-20 12:50 | PN ---
Subjective - Subjective Reason for Note: Progress Note History: Dr. Nilsa Vincent signed out Nitza Arnold to me and I have reviewed her presentation and hospital course from the EHR. She presented with a right parietal ischemic CVA. She noted this when she was standing after working on her computer. She has had continued loss of strength in her right leg and subjective slightly decreased strength right arm. She has no problems with dysphasia - she notes she is left handed. Today, she has no headache, change in vision, new neurological symptoms. Active Problems: Active Problems CVA (cerebral vascular accident) (Acute) I63.9 Right leg weakness (Acute) R29.898 Essential hypertension (Chronic) I10 GERD (gastroesophageal reflux disease) (Chronic) K21.9 History of AAA (abdominal aortic aneurysm) repair (Chronic) Z98.890 History of total bilateral knee replacement (Chronic) Z96.653 Hypercholesterolemia (Chronic) E78.00 Left handed (Chronic) [id number] Rheumatoid arthritis (Chronic) M06.9 Current Medications: Current Medications Acetaminophen (Tylenol Tab*) 650 mg PO Q4H PRN PRN Reason: FEVER/PAIN Al Hydrox/Mg Hydrox/Simethicone (Maalox Plus*) 30 ml PO Q6H PRN PRN Reason: INDIGESTION Albuterol (Ventolin 2.5 Mg/3 Ml Neb.Yana*) 2.5 mg INH [id number] AWAKE PRN PRN Reason: sob/wheezing Aspirin (Aspirin Ec Tab*) 81 mg PO DAILY [facility] Last Admin: 10/20/17 08:38 Dose: 81 mg Atorvastatin Calcium (Lipitor*) 40 mg PO DAILY [facility] Last Admin: 10/20/17 08:38 Dose: 40 mg Clopidogrel Bisulfate (Plavix Tab*) 75 mg PO DAILY [facility] Last Admin: 10/20/17 08:38 Dose: 75 mg Diphenhydramine HCl (Benadryl Po*) 25 mg PO Q6H PRN PRN Reason: Allergy Symptoms Last Admin: 10/20/17 02:43 Dose: 25 mg Fluticasone Propionate (Flonase Nasal [place] 50mcg*) 2 spray BOTH NARES DAILY [facility] Last Admin: 10/20/17 08:39 Dose: 2 spray Heparin Sodium (Porcine) (Heparin Vial(*)) 5,000 units SUBCUT Q8HR [facility] Last Admin: 10/20/17 05:36 Dose: 5,000 units Magnesium Hydroxide (Milk Of Magnrenato Liq*) 30 ml PO Q4H PRN PRN Reason: CONSTIPATION Ondansetron HCl (Zofran Inj*) 4 mg IV Q4H PRN PRN Reason: NAUSEA/VOMITING Oxycodone/Acetaminophen (Percocet 5/325 Tab*) 1 tab PO Q4H PRN PRN Reason: Pain Last Admin: 10/19/17 23:55 Dose: 1 tab Pantoprazole Sodium (Protonix Tab (Nf)) 40 mg PO DAILY [facility] Last Admin: 10/20/17 08:38 Dose: 40 mg - Review of Systems Constitutional Symptoms: Yes: Weakness Dermatology: Rash: No HEENT: Yes Vertigo - possibly mild Eyes: Negative: Change in Vision, Double Vision Pulmonary: Positive: Cough - Post nasal drip - chronic Negative: Sputum, Respiratory Distress, Shortness of Breath Cardiology: Negative: Chest Pain, Shortness of Breath, Palpitations, Swelling of Ankles Gastroenterology: Positive: Constipation, Change in Bowel Habits Negative: Abdominal Pain, Nausea, Vomiting Genital - Urinary: Positive: Normal Neurology: Positive: Change in Balancing, Change in Walking, Hx of Stroke\TIA Negative: Headache, Change in Vision, Diplopia, Numbness\Paresthesiae Home Medications: Home Medications Medication Instructions Recorded Confirmed Type Acetaminophen [Acetaminophen ER] 1,300 mg PO DAILY 10/17/17 10/17/17 History Acetaminophen/Diphenhydramine 1 - 2 each PO BEDTIME PRN 10/17/17 10/17/17 History [Acetaminophen Pm Caplet] Alendronate (NF) [Fosamax (NF)] 70 mg PO WEEKLY 10/17/17 10/17/17 History Arfqu-[id number] [Beano 2 tab PO DAILY PRN 10/17/17 10/17/17 History Meltaways] Aspirin EC TAB* [Ecotrin EC Low 81 mg PO DAILY 10/17/17 10/17/17 History Dose 81 MG*] Atorvastatin* [Lipitor*] 40 mg PO DAILY 10/17/17 10/17/17 History Chlorthalidone TAB* [Hygroton TAB*] 25 mg PO DAILY 10/17/17 10/17/17 History Clobetasol 0.05% OINT* 1 applic TOPICAL BID PRN 10/17/17 10/17/17 History Diclofenac 1% GEL (NF) [Voltaren 2 g TOPICAL QID 10/17/17 10/17/17 History 1% GEL (NF)] Etanercept SYR (NF) [Enbrel (NF)] 50 mg SUBCUT WEEKLY 10/17/17 10/17/17 History Fluticasone NASAL SPRAY 50MCG* 2 spray BOTH NARES DAILY 10/17/17 10/17/17 History [Flonase NASAL SPRAY 50MCG*] Losartan TAB* [Cozaar TAB*] 100 mg PO DAILY 10/17/17 10/17/17 History Menthol/Camphor [Sarna] 1 applic TOPICAL DAILY PRN 10/17/17 10/17/17 History Multivit with Iron,Minerals 1 each PO DAILY 10/17/17 10/17/17 History [Spectravite Senior] Pantoprazole TAB (NF) [Protonix 40 mg PO DAILY 10/17/17 10/17/17 History TAB (NF)] Phenylephrine HCl [Sinus PE 10 mg PO Q4H PRN 10/17/17 10/17/17 History Decongestant] Polyethylene Glycol 3350* 17 g PO BID PRN 10/17/17 10/17/17 History [Miralax*] Triamcinolone 0.5% CREAM(NF) 1 applic TOPICAL BID PRN 10/17/17 10/17/17 History [Triamcinolone 0.5% CREAM*] Verapamil SR TAB* [Calan Sr TAB*] 240 mg PO BID 10/17/17 10/17/17 History amLODIPine TAB* [Norvasc 5 mg TAB*] 5 mg PO DAILY 10/17/17 10/17/17 History diPHENhydraMINE PO* [Benadryl PO 25 mg PO Q6H PRN 10/17/17 10/17/17 History 25 MG TAB*] Allergies: Allergies Allergy/AdvReac Type Severity Reaction Status Date / Time Penicillins Allergy Intermediate Rash Verified 10/17/17 14:22 Sulfa (Sulfonamide Allergy Intermediate Rash Verified 10/17/17 14:22 Antibiotics) Objective - Vital Signs Vital Signs: Vital Signs 10/19/17 10/19/17 10/19/17 15:06 19:27 20:00 Temperature 98.9 F 98.6 F Pulse Rate 72 79 Respiratory 16 20 20 Rate Blood Pressure 122/69 116/66 (mmHg) O2 Sat by Pulse 99 98 Oximetry 10/19/17 10/19/17 10/20/17 23:23 23:55 02:09 Temperature 98.4 F Pulse Rate 74 Respiratory 20 16 16 Rate Blood Pressure 150/91 (mmHg) O2 Sat by Pulse 98 Oximetry 10/20/17 10/20/17 10/20/17 02:43 05:22 07:52 Temperature 97.4 F Pulse Rate 57 Respiratory 16 16 20 Rate Blood Pressure 143/69 (mmHg) O2 Sat by Pulse 99 Oximetry 10/20/17 10:36 Temperature Pulse Rate Respiratory 16 Rate Blood Pressure (mmHg) O2 Sat by Pulse Oximetry - Intake and Output Intake and Output: Intake & Output 10/18/17 10/19/17 10/20/17 10/21/17 11:59 11:59 11:59 11:59 Intake Total 2074 5074 830 Output Total 0 0 Balance 4 5074 830 Weight 163 lb 9.6 oz Intake: IV Fluids 1594 3664 NS (0.9%) 2414 IVPB 110 MG 2gm 110 Oral 480 1410 720 Output: Urine 0 0 Other: Estimated Void Medium Medium Large # Bowel Movements 0 0 1 Estimated Stool Amount Medium # Voids 1 1 2 ADLs: Meal Record Start: 10/17/17 17: 56 Freq: DAILY@0900,1400,1800 Status: Active Protocol: Created 10/17/17 17:56 System (Rec: 10/17/17 17:56 System [id number]) Document 10/17/17 18:00 [id number] (Rec: 10/17/17 20:56 [id number] TELE-C09) Document 10/18/17 09:00 CED4232 (Rec: 10/18/17 13:36 [id number] TELE-C07) Document 10/18/17 13:36 HNK1161 (Rec: 10/18/17 13:43 KAY1294 TELE-C07) Document 10/18/17 17:53 VPI5919 (Rec: 10/18/17 17:53 QBI2439 TELE-C01) Document 10/19/17 09:00 GMT4820 (Rec: 10/19/17 15:09 UBW8314 TELE-C07) Document 10/19/17 14:00 [id number] (Rec: 10/19/17 15:10 [id number] TELE-C07) Document 10/19/17 18:00 JCJ1897 (Rec: 10/19/17 19:28 JZD0757 TELE-C34) Document 10/20/17 08:59 PGJ5020 (Rec: 10/20/17 08:59 CSX1132 TELE-C05) Intake and Output Start: 10/17/17 13: 57 Freq: Status: Active Protocol: Created 10/17/17 13:57 System (Rec: 10/17/17 13:57 System ED-C18) Intake and Output Start: 10/17/17 17: 56 Freq: DAILY@0600,1400,2200 Status: Active Protocol: Created 10/17/17 17:56 System (Rec: 10/17/17 17:56 System IMG-CS74) Document 10/17/17 22:00 [id number] (Rec: 10/17/17 22:49 [id number] TELE-C09) Document 10/18/17 06:00 NUK6048 (Rec: 10/18/17 07:24 QBR5561 TELE-C03) Document 10/18/17 13:36 EXN5739 (Rec: 10/18/17 13:43 MDH5988 TELE-C07) Document 10/18/17 17:18 CXD2578 (Rec: 10/18/17 17:18 OHA7401 TELE-C05) Document 10/18/17 22:11 HKX7430 (Rec: 10/18/17 22:13 DAV9006 TELE-C35) Document 10/19/17 06:00 XOJ2876 (Rec: 10/19/17 06:39 EZH2191 TELE-C07) Document 10/19/17 14:00 FYS9510 (Rec: 10/19/17 15:10 ZCW7160 TELE-C07) Document 10/19/17 22:00 APV4959 (Rec: 10/19/17 22:41 LTX3223 TELE-C34) Document 10/20/17 06:00 UQE2669 (Rec: 10/20/17 06:04 [id number] TELE-C34) - Physical Exam General Physical Exam Comment: Warm and well perfused. She is in no distress. General: No Cyanosis, No Anemia, No Jaundice, No Clubbing Eye Exam: bilateral: PERRLA, EOMI Skin: Normal: Rash Lungs and Chest: Yes: Chest Expansion Full, Chest Expansion Symetrica, Percussion Note Resonant, Vessicular Breath Sounds. No: Crackles, Wheezes Heart Rate and Rhythm: Regular JVP: Not Elevated Additional Cardiovascular: Yes: Normal Heart Sounds. No: Heart Murmur, Pedal Edema Abdominal Exam: Yes: Soft, Bowel Sounds Present. No: Distention, Abdominal Mass , Abdominal Tenderness - Extremities Cranial Nerves II-XII Intact: Yes Limbs: Normal Tone, Normal Coordination, Normal Sensation, Abnormal Power - Right arm normal. Right leg UMN patten of weakness - can lift against gravity, but not against resistance - Neuro Orientation: A/O x3 Speech: Normal Results - Results Lab Results: Laboratory Results - last 24 hr 10/20/17 10/20/17 06:21 06:21 WBC 7.5 RBC 3.58 L Hgb 11.6 L Hct 34 L MCV 95 MCH 32 H MCHC 34 RDW 14 Plt Count 207 MPV 6.8 L Neut % (Auto) 64.6 Lymph % (Auto) 23.8 L [place] % (Auto) 8.3 H Eos % (Auto) 2.9 Baso % (Auto) 0.4 Absolute Neuts (auto) 4.8 Absolute Lymphs (auto) 1.8 Absolute Monos (auto) 0.6 Absolute Eos (auto) 0.2 Absolute Basos (auto) 0 Absolute Nucleated RBC 0 Nucleated RBC % 0 Sodium 141 Potassium 3.9 Chloride 110 Carbon Dioxide 24 Anion Gap 7 BUN 20 Creatinine 1.11 H Est GFR ( Amer) 57.1 Est GFR (Non-Af Amer) 47.2 BUN/Creatinine Ratio 18.0 Glucose 88 Calcium 9.0 Magnesium 2.2 Radiology Results: Patient Name: NITZA ARNOLD Medical Record#: [id number] Ordering Physician: Mayra Fernandez MD Acct.#: [id number] : 1935 Age: 82 Sex: F Location: [address] [place] [address]/TELEMETRY Exam Date: 10/17/17 1706 ADM Status: ADM Helen Order Information: MRI BRAIN W/O Accession Number: [id number] CPT: 20825 INDICATION: Right arm dysmetria and ataxia. COMPARISON: Comparison is made with a prior CT of the brain from October 17, 2017 and a prior MRI of the brain from November 02, 2010. TECHNIQUE: Sagittal T1, axial T1, T2, susceptibility, FLAIR and diffusion weighted images were obtained. FINDINGS: The ventricles, cisterns and sulci are prominent consistent with diffuse atrophy. There are prominent areas of increased signal intensity on T2- weighted images present within the subcortical and periventricular white matter most consistent with severe chronic small vessel ischemic changes. There appears to be an old lacunar infarct within the left thalamus. No other focal abnormalities or mass effect are seen. There is a small focal area of restricted diffusion involving the cortex and subcortical white matter in the left parafalcine region in the left parietal lobe most consistent with an acute to subacute infarct. There is evidence of old hemosiderin deposition in the cerebellar hemispheres. The visualized portion of the paranasal sinuses and mastoid air cells appear clear. IMPRESSION: 1. SMALL ACUTE TO SUBACUTE NONHEMORRHAGIC INFARCT IN THE CORTEX AND SUBCORTICAL WHITE MATTER IN THE PARA MIDLINE LEFT PARIETAL LOBE. 2. ATROPHY AND FINDINGS CONSISTENT WITH SEVERE CHRONIC SMALL VESSEL ISCHEMIC CHANGES. 3. OLD LACUNAR INFARCT IN THE LEFT THALAMUS. <Electronically signed by Michael Mancuso MD in [place]> 10/17/172012 Dictated By: Michael Mancuso MD Dictated Date/Time: 10/17/172012 Transcribed Date/Time: 10/17/172003 Copy to: CC:Nilsa Valencia MD; Alecia Tomlinson DO; Mayra Fernandez MD Imaging - [facility] Imaging - [facility] [address] [place] [address] Patient Name: NITZA ARNOLD Medical Record#: [id number] Ordering Physician: Mayra Fernandez MD Acct.#: [id number] : 1935 Age: 82 Sex: F Location: [address] [place] [address] MEDICAL/TELEMETRY Exam Date: 10/17/17 170 ADM Status: ADM Helen Order Information: VL CAROTID BILATERAL Accession Number: [id number] CPT: 32939 INDICATION: Carotid stenosis COMPARISON: None TECHNIQUE: Transverse and longitudinal scans of the carotid and vertebral arteries were performed with espinoza scale, color Doppler, and spectral Doppler imaging. Stenosis criteria is based on flow velocities that correlate with visual internal carotid artery diameter (NASCET criteria) FINDINGS: Right carotid: There is moderate calcific plaque involving the bifurcation. There is no spectral broadening. The peak systolic velocity of the internal carotid artery is 126 cm/s and the peak diastolic velocity 27 cm/s. The ICA/CCA ratio is calculated at 2.1. This corresponds to a 50-69% diameter stenosis. Left carotid: There is moderate calcific plaque involving the bifurcation. There is no spectral broadening. The peak systolic velocity of the internal carotid artery is 94 cm/s and the peak diastolic velocity 20 cm/s. The ICA/CCA ratio is calculated at 1.5. This corresponds to a less than 50% diameter stenosis. Right vertebral: Right vertebral waveforms are normal and the flow is antegrade. Left vertebral: Left vertebral waveforms are normal and the flow is antegrade. IMPRESSION: 1. 50-69% diameter stenosis right internal carotid artery with associated calcific plaque formation. 2. Less than 50% diameter stenosis left internal carotid artery with associated calcific plaque formation. CPT II Codes: 3100F PQRS <Electronically signed by Shimon Renteria MD in [place]> 10/18/17733 Dictated By: Shimon Renteria MD Dictated Date/Time: 10/18/17733 Transcribed Date/Time: 10/18/17727 Copy to: CC:Nilsa Valencia MD; Alecia Tomlinson DO; Mayra Fernandez MD Patient Name: NITZA ARNOLD Medical Record#: [id number] Ordering Physician: Mayra Fernandez MD Acct.#: [id number] : 1935 Age: 82 Sex: F Location: [address] [place] [address]/TELEMETRY Exam Date: 10/17/171705 ADM Status: ADM Helen Order Information: MRA HEAD W/O Accession Number: [id number] CPT: 66368 INDICATION: Right arm dysmetria and ataxia. COMPARISON: Comparison is made with a prior MRI of the brain from October 17, 2017. TECHNIQUE: A 3-D time of flight magnetic resonance angiogram was performed around the [place]. Images were reconstructed in the maximum intensity projection format. FINDINGS: The internal carotid, anterior and middle cerebral arteries appear patent without evidence for high-grade stenosis or occlusion. The vertebral, basilar and posterior cerebral arteries appear patent without evidence for high-grade stenosis or occlusion. The right posterior cerebral artery arises from the posterior communicating artery consistent with normal variation. There is a dominant left vertebral artery. No aneurysm or vascular malformation is seen. IMPRESSION: NEGATIVE EXAM. <Electronically signed by Michael Mancuso MD in [place]> 10/17/172015 Dictated By: Michael Mancuso MD Dictated Date/Time: 10/17/172015 Transcribed Date/Time: 10/17/172003 Copy to: CC:Nilsa Valencia MD; Alecia Tomlinson DO; Mayra Fernandez MD Imaging - [facility] Imaging - [facility] [address] [address] ph ([phone]) ph ([phone]) ph ([phone]) Other Results/Reports: Conclusions transthoracic echocardiogram The left ventricle appears hyperdynamic. The estimated ejection fraction is 60-65%. Abnormal left ventricular diastolic filling is observed, consistent with impaired relaxation. Septal wall hypertrophy is observed. The aortic valve leaflets are moderately thickened. There is moderate aortic stenosis. The mitral valve leaflets are moderately thickened. Calcified posterior chordea noted. Mitral valve posterior leaflet calcification is visualized. Moderate subvalvular thickening of the mitral valve is visualized; Calcified posteromedial papillary muscle and subvalvular apparatus. There is trace to mild mitral regurgitation. There is mild mitral stenosis. There is mild to moderate tricuspid regurgitation. There is evidence of borderline pulmonary hypertension. There is moderate dilatation of the ascending aorta. Similar to 11/2014 except for mild progression in aortic stenosis. Assessment - Problem List Assessment: Patient Problems CVA (cerebral vascular accident) (Acute) Right leg weakness (Acute) Essential hypertension (Chronic) GERD (gastroesophageal reflux disease) (Chronic) History of AAA (abdominal aortic aneurysm) repair (Chronic) History of total bilateral knee replacement (Chronic) Hypercholesterolemia (Chronic) Left handed (Chronic) Rheumatoid arthritis (Chronic) Plan: CVA (cerebral vascular accident) (Acute)/ Right leg weakness (Acute) She is neurologically stable. She has a deficit in her right leg and subjectively right arm (I found nothing on examination). She has problems with gait. She is waiting a bed on the inpatient rehab unit (PMRU). Essential hypertension (Chronic) Her BP is in an acceptable range - Dr. Valencia is going to wait a week or two before resuming her antihypertensives GERD (gastroesophageal reflux disease) (Chronic) no symptoms History of AAA (abdominal aortic aneurysm) repair (Chronic) History of total bilateral knee replacement (Chronic) Hypercholesterolemia (Chronic) ongoing - treatment required Left handed (Chronic) Rheumatoid arthritis (Chronic) stable I discussed the above with the patient. She asked her risk of recurrent stroke. I have given her the following article to read: Clinical and Imaging Predictors of Recurrent Ischemic Stroke: A Systematic Review and [place]-Analysis [place] She is medically ready for discharge to [facility]
[2017-10-21] MEDS: Heparin VIAL(*) 5000 UNITS/ML VIAL (FIVE THOUSAND) SUBCUT SCH (05:11)
[2017-10-21] MEDS: Atorvastatin* 40 MG TAB PO SCH (07:44)
[2017-10-21] MEDS: Aspirin EC TAB* 81 MG TAB.EC PO SCH (07:45)
[2017-10-21] MEDS: CMC: Pantoprazole TAB (NF) 40 MG TAB PO SCH (07:45)
[2017-10-21] MEDS: Clopidogrel TAB* 75 MG PO SCH (07:46)
[2017-10-21] MEDS: Fluticasone NASAL SPRAY 50MCG* 16 gm SPRAY BTL BOTH NARES SCH (07:46)
--- NOTE | 2017-10-21 08:08 | PN ---
Subjective - Subjective Reason for Note: Discharge Note History: She continues to have weakness of her right leg and was not mobilized yesterday. She denies headache, vision change, dizziness, nausea. She has had no seizures. Active Problems: Active Problems CVA (cerebral vascular accident) (Acute) I63.9 Right leg weakness (Acute) R29.898 Essential hypertension (Chronic) I10 GERD (gastroesophageal reflux disease) (Chronic) K21.9 History of AAA (abdominal aortic aneurysm) repair (Chronic) Z98.890 History of total bilateral knee replacement (Chronic) Z96.653 Hypercholesterolemia (Chronic) E78.00 Left handed (Chronic) [id number] Rheumatoid arthritis (Chronic) M06.9 Current Medications: Current Medications Acetaminophen (Tylenol Tab*) 650 mg PO Q4H PRN PRN Reason: FEVER/PAIN Last Admin: 10/20/17 15:28 Dose: 650 mg Al Hydrox/Mg Hydrox/Simethicone (Maalox Plus*) 30 ml PO Q6H PRN PRN Reason: INDIGESTION Albuterol (Ventolin 2.5 Mg/3 Ml Neb.Yana*) 2.5 mg INH RT.[id number] AWAKE PRN PRN Reason: sob/wheezing Aspirin (Aspirin Ec Tab*) 81 mg PO DAILY [facility] Last Admin: 10/21/17 07:45 Dose: 81 mg Atorvastatin Calcium (Lipitor*) 40 mg PO DAILY [facility] Last Admin: 10/21/17 07:44 Dose: 40 mg Clopidogrel Bisulfate (Plavix Tab*) 75 mg PO DAILY [facility] Last Admin: 10/21/17 07:46 Dose: 75 mg Diphenhydramine HCl (Benadryl Po*) 25 mg PO Q6H PRN PRN Reason: Allergy Symptoms Last Admin: 10/20/17 02:43 Dose: 25 mg Fluticasone Propionate (Flonase Nasal [place] 50mcg*) 2 spray BOTH NARES DAILY [facility] Last Admin: 10/21/17 07:46 Dose: 2 spray Heparin Sodium (Porcine) (Heparin Vial(*)) 5,000 units SUBCUT Q8HR [facility] Last Admin: 10/21/17 05:11 Dose: 5,000 units Magnesium Hydroxide (Milk Of Magnesia Liq*) 30 ml PO Q4H PRN PRN Reason: CONSTIPATION Ondansetron HCl (Zofran Inj*) 4 mg IV Q4H PRN PRN Reason: NAUSEA/VOMITING Oxycodone/Acetaminophen (Percocet 5/325 Tab*) 1 tab PO Q4H PRN PRN Reason: Pain Last Admin: 10/19/17 23:55 Dose: 1 tab Pantoprazole Sodium (Protonix Tab (Nf)) 40 mg PO DAILY [facility] Last Admin: 10/21/17 07:45 Dose: 40 mg Home Medications: Home Medications Medication Instructions Recorded Confirmed Type Acetaminophen [Acetaminophen ER] 1,300 mg PO DAILY 10/17/17 10/17/17 History Acetaminophen/Diphenhydramine 1 - 2 each PO BEDTIME PRN 10/17/17 10/17/17 History [Acetaminophen Pm Caplet] Alendronate (NF) [Fosamax (NF)] 70 mg PO WEEKLY 10/17/17 10/17/17 History [id number] [Beano 2 tab PO DAILY PRN 10/17/17 10/17/17 History Meltaways] Aspirin EC TAB* [Ecotrin EC Low 81 mg PO DAILY 10/17/17 10/17/17 History Dose 81 MG*] Atorvastatin* [Lipitor*] 40 mg PO DAILY 10/17/17 10/17/17 History Chlorthalidone TAB* [Hygroton TAB*] 25 mg PO DAILY 10/17/17 10/17/17 History Clobetasol 0.05% OINT* 1 applic TOPICAL BID PRN 10/17/17 10/17/17 History Diclofenac 1% GEL (NF) [Voltaren 2 g TOPICAL QID 10/17/17 10/17/17 History 1% GEL (NF)] Etanercept SYR (NF) [Enbrel (NF)] 50 mg SUBCUT WEEKLY 10/17/17 10/17/17 History Fluticasone NASAL SPRAY 50MCG* 2 spray BOTH NARES DAILY 10/17/17 10/17/17 History [Flonase NASAL SPRAY 50MCG*] Losartan TAB* [Cozaar TAB*] 100 mg PO DAILY 10/17/17 10/17/17 History Menthol/Camphor [Sarna] 1 applic TOPICAL DAILY PRN 10/17/17 10/17/17 History Multivit with Iron,Minerals 1 each PO DAILY 10/17/17 10/17/17 History [Spectravite Senior] Pantoprazole TAB (NF) [Protonix 40 mg PO DAILY 10/17/17 10/17/17 History TAB (NF)] Phenylephrine HCl [Sinus PE 10 mg PO Q4H PRN 10/17/17 10/17/17 History Decongestant] Polyethylene Glycol 3350* 17 g PO BID PRN 10/17/17 10/17/17 History [Miralax*] Triamcinolone 0.5% CREAM(NF) 1 applic TOPICAL BID PRN 10/17/17 10/17/17 History [Triamcinolone 0.5% CREAM*] Verapamil SR TAB* [Calan Sr TAB*] 240 mg PO BID 10/17/17 10/17/17 History amLODIPine TAB* [Norvasc 5 mg TAB*] 5 mg PO DAILY 10/17/17 10/17/17 History diPHENhydraMINE PO* [Benadryl PO 25 mg PO Q6H PRN 10/17/17 10/17/17 History 25 MG TAB*] Allergies: Allergies Allergy/AdvReac Type Severity Reaction Status Date / Time Penicillins Allergy Intermediate Rash Verified 10/17/17 14:22 Sulfa (Sulfonamide Allergy Intermediate Rash Verified 10/17/17 14:22 Antibiotics) Objective - Vital Signs Vital Signs: Vital Signs 10/20/17 10/20/17 10/20/17 10:36 15:04 20:00 Temperature 98.9 F Pulse Rate 72 Respiratory 16 20 20 Rate Blood Pressure 129/72 (mmHg) O2 Sat by Pulse 99 Oximetry 10/20/17 23:11 Temperature 98.0 F Pulse Rate 66 Respiratory 20 Rate Blood Pressure 134/87 (mmHg) O2 Sat by Pulse 98 Oximetry - Intake and Output Intake and Output: Intake & Output 10/18/17 10/19/17 10/20/17 10/21/17 11:59 11:59 11:59 11:59 Intake Total 2070 5066 830 670 Output Total 0 0 Balance 2073 5073 830 670 Weight 163 lb 9.6 oz Intake: IV Fluids 1594 3664 NS (0.9%) 2414 IVPB 110 MG 2gm 110 Oral 480 1410 720 670 Output: Urine 0 0 Other: Estimated Void Medium Medium Large Large # Bowel Movements 0 0 1 0 Estimated Stool Amount Medium Large # Voids 1 1 2 2 ADLs: Meal Record Start: 10/17/17 17: 56 Freq: DAILY@0900,1400,1800 Status: Active Protocol: Created 10/17/17 17:56 System (Rec: 10/17/17 17:56 System [id number]) Document 10/17/17 18:00 [id number] (Rec: 10/17/17 20:56 [id number] TELE-C09) Document 10/18/17 09:00 [id number] (Rec: 10/18/17 13:36 [id number] TELE-C07) Document 10/18/17 13:36 [id number] (Rec: 10/18/17 13:43 [id number] TELE-C07) Document 10/18/17 17:53 [id number] (Rec: 10/18/17 17:53 [id number] TELE-C01) Document 10/19/17 09:00 [id number] (Rec: 10/19/17 15:09 [id number] TELE-C07) Document 10/19/17 14:00 [id number] (Rec: 10/19/17 15:10 [id number] TELE-C07) Document 10/19/17 18:00 [id number] (Rec: 10/19/17 19:28 [id number] TELE-C34) Document 10/20/17 08:59 [id number] (Rec: 10/20/17 08:59 [id number] TELE-C05) Document 10/20/17 14:00 [id number] (Rec: 10/20/17 14:24 [id number] TELE-C05) Document 10/20/17 18:00 [id number] (Rec: 10/20/17 22:21 [id number] TELE-C34) Intake and Output Start: 10/17/17 13: 57 Freq: Status: Active Protocol: Created 10/17/17 13:57 System (Rec: 10/17/17 13:57 System [id number]) Intake and Output Start: 10/17/17 17: 56 Freq: DAILY@0600,1400,2200 Status: Active Protocol: Created 10/17/17 17:56 System (Rec: 10/17/17 17:56 System [id number]) Document 10/17/17 22:00 [id number] (Rec: 10/17/17 22:49 [id number] TELE-C09) Document 10/18/17 06:00 [id number] (Rec: 10/18/17 07:24 [id number] TELE-C03) Document 10/18/17 13:36 [id number] (Rec: 10/18/17 13:43 [id number] TELE-C07) Document 10/18/17 17:18 [id number] (Rec: 10/18/17 17:18 [id number] TELE-C05) Document 10/18/17 22:11 [id number] (Rec: 10/18/17 22:13 [id number] TELE-C35) Document 10/19/17 06:00 [id number] (Rec: 10/19/17 06:39 [id number] TELE-C07) Document 10/19/17 14:00 [id number] (Rec: 10/19/17 15:10 [id number] TELE-C07) Document 10/19/17 22:00 [id number] (Rec: 10/19/17 22:41 [id number] TELE-C34) Document 10/20/17 06:00 [id number] (Rec: 10/20/17 06:04 [id number] TELE-C34) Document 10/20/17 14:00 [id number] (Rec: 10/20/17 14:24 [id number] TELE-C05) Document 10/20/17 22:00 [id number] (Rec: 10/20/17 22:23 [id number] TELE-C34) Document 10/21/17 05:50 [id number] (Rec: 10/21/17 05:51 [id number] TELE-C34) - Physical Exam General Physical Exam Comment: Warm and well perfused - in no distress General: No Cyanosis, No Anemia, No Jaundice, No Clubbing Lungs and Chest: Yes: Chest Expansion Full, Chest Expansion Symetrica, Percussion Note Resonant, Vessicular Breath Sounds. No: Crackles, Wheezes Heart Rate and Rhythm: Regular JVP: Not Elevated Additional Cardiovascular: Yes: Normal Heart Sounds, Heart Murmur - 3/6 MERLENE at aortic area. No: Carotid Bruits, Pedal Edema Abdominal Exam: Yes: Soft, Bowel Sounds Present. No: Distention, Abdominal Mass , Abdominal Tenderness - Extremities Cranial Nerves II-XII Intact: Yes Limbs: Normal Tone, Abnormal Power - Right leg - Upper motor neuron pattern of weakness - can barely lift the leg against gravity - Neuro Orientation: A/O x3 Speech: Normal Assessment - Problem List Assessment: Patient Problems CVA (cerebral vascular accident) (Acute) Right leg weakness (Acute) Essential hypertension (Chronic) GERD (gastroesophageal reflux disease) (Chronic) History of AAA (abdominal aortic aneurysm) repair (Chronic) History of total bilateral knee replacement (Chronic) Hypercholesterolemia (Chronic) Left handed (Chronic) Rheumatoid arthritis (Chronic) Plan: She has stable neurological findings. She is ready for discharge to [facility] and will benefit greatly from their rehabilitation program. Her BP is controlled. She has no other new problems. Her rheumatoid arthritis is not flaring at present. I discussed the above with the patient and she agrees with the plan.
[2017-10-21 11:33] VITALS: BP 148/83
== END 2017-10-21 11:55 | DRG 66 ==
LOC: ED 13:50 → MEDTELE 17:32 → OBSVTOIN 10-18 11:31
PROVIDERS: ADMIT Hospitalist; ATTEND Internal Medicine Geriatric Medicine
DX: I63.9 Cerebral infarction, unspecified (principal); G83.13 Monoplegia of lower limb affecting right nondominant side; I10 Essential (primary) hypertension; K21.9 Gastro-esophageal reflux disease without esophagitis; E78.5 Hyperlipidemia, unspecified; I71.2 Thoracic aortic aneurysm, without rupture; I95.89 Other hypotension; M06.9 Rheumatoid arthritis, unspecified; E86.0 Dehydration; J30.9 Allergic rhinitis, unspecified; G89.29 Other chronic pain; Z66 Do not resuscitate; I35.0 Nonrheumatic aortic (valve) stenosis; D64.9 Anemia, unspecified; K59.09 Other constipation; M19.90 Unspecified osteoarthritis, unspecified site; Z96.653 Presence of artificial knee joint, bilateral; Z79.1 Long term (current) use of non-steroidal anti-inflammatories (NSAID); Z79.82 Long term (current) use of aspirin; Z79.899 Other long term (current) drug therapy; Z88.0 Allergy status to penicillin; Z88.2 Allergy status to sulfonamides; Z80.3 Family history of malignant neoplasm of breast; Z82.49 Family history of ischemic heart disease and other diseases of the circulatory system; M25.511 Pain in right shoulder; W18.30XA Fall on same level, unspecified, initial encounter; Y92.008 Other place in unspecified non-institutional (private) residence as the place of occurrence of the external cause
CPT/HCPCS: 36415; 70450; 70544; 70551; 71045; 72125; 80048; 80053; 80061; 81003; 82550; 82607; 82728; 82746; 83540; 83550; 83605; 83735; 83880; 84443; 84484; 85025; 85027; 85045; 86140; 93005; 93306; 93880; 99285; A9270-GY; G0378; G8978-GP-CM; G8979-GP-CM; G8987-GO-CL; G8988-GO-CI; J1644; J3475

== ENCOUNTER 2017-10-21 10:34 | Inpatient (IN) | payer MEDICARE, OTHER ==
[2017-10-21] MEDS ORDERED: Magnesium Hydroxide LIQ* 30 ML UDC PO PRN (12:38)
[2017-10-21] MEDS: Heparin VIAL(*) 5000 UNITS/ML VIAL (FIVE THOUSAND) SUBCUT SCH ×2 (15:56→20:52)
[2017-10-21] MEDS: Acetaminophen TAB* 325 MG PO PRN (18:10)
[2017-10-21] MEDS: Docusate CAP* 100 MG PO SCH (20:52)
--- NOTE | 2017-10-21 21:17 | HP ---
HISTORY AND PHYSICAL: DATE OF ADMISSION: 10/21/17. REASON FOR ADMISSION: Left-sided CVA. HISTORY OF PRESENT ILLNESS: Meliza Rodríguez is an 82-year-old female. She has a medical history significant for rheumatoid arthritis and normally takes Enbrel for that. She also has a history of hypertension. She had an abdominal aortic aneurysm repair in January 2015. The patient came to the hospital acutely on 10/17/17. She had fallen at home, but she was having trouble getting up after she fell. She was able to ask for help and brought by ambulance for an evaluation in the emergency room. After fall, she noted she had some right- sided weakness. The patient had an evaluation in the emergency department by the neurologist, Dr. Fernandez. A CAT scan was done, which showed no evidence of intracranial abnormality. She also had a cervical spine CAT scan because of the trauma, it did not show any fractures. He did not feel she was a candidate for tPA because of her low NIH stroke scale score. He did feel, however, that she may have had a left hemispheric stroke. Plavix was added to her aspirin. She had an MRI of her brain, which was done 10/17/17. The MRI of the brain showed a small acute infarct in the subcortical white matter in the midline left parietal lobe. The patient's blood pressure medicines were held because she had some low blood pressure, but she did get verapamil. The following morning, she seemed to be weaker and the verapamil was held as well. The patient was felt to have physical therapy and occupational therapy needs. She is now being admitted for inpatient rehab, so that she might return to independent living. PAST MEDICAL HISTORY: As mentioned is significant for hypertension, rheumatoid arthritis, and abdominal aortic aneurysm, which was repaired. 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 She had a Matilde fundoplication. CURRENT MEDICATIONS: Include: 1. Aspirin. 2. Plavix. 3. Lipitor. 4. She is on Flonase. 5. Protonix. 6. Colace. 7. Senokot. 8. Her Enbrel is being held. 9. Her Fosamax is also on hold, but it is likely to resume this week. 10. Her blood pressure medicines, losartan and verapamil and amlodipine are all on hold. ALLERGIES: Include PENICILLIN and SULFA. SOCIAL HISTORY: She is a nonsmoker. She has a glass of wine several times a week. She lives by herself on the first floor of a house. She rents out an apartment on the second luis. She lives in [place]. She has a son who lives in . She does have a healthcare proxy, who is a neighbor. The patient has a MOLST form and she states she does not want to be resuscitated in case of life-threatening emergency. The patient lives alone. REVIEW OF SYSTEMS: The patient reports no current shortness of breath or chest pain. PHYSICAL EXAMINATION VITAL SIGNS: The patient's temperature is 98.2, blood pressure is 131/78, pulse is 66, respirations 16. HEENT: Extraocular movements are intact. Tongue is midline. NECK: Supple. LUNGS: Sound clear to auscultation bilaterally. HEART: Sounds are regular. S1, S2 are audible. ABDOMEN: Soft and nontender. EXTREMITIES: Show normal muscle bulk and tone. Peripheral pulses are intact. NEUROLOGIC: She is awake, alert, and oriented. Muscle strength on the right side is about 4-4+/5. The left side is 5/5. She does have some clumsiness as well on the right side. FUNCTIONAL EXAM: She transfers with contact guard. ASSESSMENT: Left cerebrovascular accident with right hemiparesis. PLAN/RECOMMENDATIONS: Our plan integrate her into comprehensive and therapeutic rehab program on the following goals: 1. Physical Therapy will see the patient, work on functional transfer training , ambulation training with a walker. 2. Occupational Therapy will see the patient, work on her activities of daily living including toileting and toilet transfers. 3. Heparin for DVT prophylaxis. 4. For secondary stroke prevention, we are going to continue aspirin, Plavix, and Lipitor. 5. We are going to continue to hold her blood pressure medicines until her blood pressure rises to where it needs to be treated. 6. We are going to contact her primary care office and see when the Enbrel should be restarted. 7. SSRIs including Prozac as indicated. 8. financial services rep will be closely involved to make sure that any services and equipment the patient requires are in place prior to discharge. 9. Advance directives, the patient has a MOLST form and wishes to be DNR. I have written an order in the chart. 10. Family training is appropriate. 11. Home with appropriate services. ESTIMATED LENGTH OF STAY: 7 to 10 days. [id number]/CPS #: [id number] EMELI
[2017-10-22] MEDS: Heparin VIAL(*) 5000 UNITS/ML VIAL (FIVE THOUSAND) SUBCUT SCH ×3 (04:52→21:38)
[2017-10-22] MEDS: Docusate CAP* 100 MG PO SCH ×2 (09:11→19:44)
[2017-10-22] MEDS: Clopidogrel TAB* 75 MG PO SCH (09:11)
[2017-10-22] MEDS: Fluticasone NASAL SPRAY 50MCG* 16 gm SPRAY BTL BOTH NARES SCH (09:11)
[2017-10-22] MEDS: CMC:Pantoprazole TAB (NF) 40 MG TAB PO SCH (09:11)
[2017-10-22] MEDS: Aspirin EC TAB* 81 MG TAB.EC PO SCH (09:11)
--- NOTE | 2017-10-22 12:12 | PN ---
Progress Note Date of Service: 10/22/17 Note: NITZA ARNOLD was visited. Therapy notes read and reviewed. She will be discussed in interdisciplinary team rounds. She had a good first day of therapy. A little tired. Her ankles are swollen. I will re-start her chlorthalidone, watch BP Current Medications: Active Medications Generic Name Dose Route Start Last Admin Trade Name Freq PRN Reason Stop Dose Admin Acetaminophen 650 mg 10/21/17 12:38 10/21/17 18:10 Tylenol Tab* PO 650 mg Q6H PRN Administration FEVER > 101 Aspirin 81 mg 10/22/17 09:00 10/22/17 09:11 Aspirin Ec Tab* PO 81 mg DAILY [facility] Administration Atorvastatin Calcium 40 mg 10/22/17 17:00 Lipitor* PO 1700 MEET Chlorthalidone 25 mg 10/23/17 09:00 [place] Tab* PO DAILY [facility] Clopidogrel Bisulfate 75 mg 10/22/17 09:00 10/22/17 09:11 Plavix Tab* PO 75 mg DAILY [facility] Administration Docusate Sodium 100 mg 10/21/17 21:00 10/22/17 09:11 Colace Cap* PO 100 mg BID [facility] Administration Fluticasone Propionate 2 spray 10/22/17 09:00 10/22/17 09:11 Flonase Nasal [place] 50mcg* BOTH NARES 2 spray DAILY [facility] Administration Heparin Sodium (Porcine) 5,000 units 10/21/17 14:00 10/22/17 04:52 Heparin Vial(*) SUBCUT 5,000 units Q8HR [facility] Administration Magnesium Hydroxide 30 ml 10/21/17 12:38 Milk Of Magnesia Liq* PO Q6H PRN CONSTIPATION Pantoprazole Sodium 40 mg 10/22/17 09:00 10/22/17 09:11 Protonix Tab (Nf) PO 40 mg DAILY [facility] Administration Senna 2 tab 10/21/17 12:38 Senokot Tab* PO BEDTIME PRN CONSTIPATION Vital Signs: Vital Signs Temp Pulse Resp BP Pulse Ox 97.9 F 64 18 145/87 95 10/22/17 04:55 10/22/17 04:55 10/22/17 04:55 10/22/17 04:55 10/22/17 04:55 Exam: HEENT: face appears symmetric LUNGS: Clear bilaterally HEART: I/ murmur ABDOMEN: Soft, +BS EXTREMITIES: 2+ edema at ankles NEUROLOGIC: alert and oriented. Muscle strength 4+/5 on right Assessment/Plan: 1. Left CVA with right sided weakness: PT/OT. DAPT (ASA/Plavix) for 30 days, then ASA alone, per neurology 2. HTN: restart Chlorthalidone. Watch BP 3. Rheumatoid Arthritis: Will see when she can restart Enbrel 4. DVT Prophylaxis: Heparin S/Q 5. Advanced Directives: She has MOLST. DNR 6. Mitral Regurgitation on echo: restart Chlorthalidone 10/22/17 12:13
--- NOTE | 2017-10-22 12:32 | PMRUTEAM ---
PMRU: Team Meeting Current Status: Physical Therapy: Current Status Bed Mobility Assistance Mod Assist Transfer Moblility Assistance Min Assist Transfer/Bed Mobility Rolling Walker Recommended Devices Transfer Mobility Comment Pt. is able to perfodrma SPT using a 2 w/w cg to x 1. Ambulation Assistance Contact Guard Ambulation Assistive Devices Rolling Walker Number of Feet Patient 50' x 2 Ambulated Ambulation Comment Pt. presents a modified short step reciparocal type gait pattern. Stairs Assistance Not Tested Stairs Recommended Devices Two Rails Number of Stairs 3 Manual Wheelchair Control/ Bilateral UE's Technique Wheelchair Propulsion Ability Independent Wheelchair Distance (ft) 100 Occupational Therapy: Current Status Upper Body Dressing Supervision Upper Body Dressing Progress with set up Lower Body Dressing Contact Guard Assist Bathing Contact Guard Assist Toileting Contact Guard Assist Toilet Transfer Contact Guard Assist Shower Transfer Contact Guard Assist Eating Supervision Social Work: Current Status Discharge Plan return home with home care svs and support from friends Potential for Family Training n/a family lives out of state Anticipated Discharge Home Destination Discharge With VNS and support from neighbor Nutrition: Current Status Monitoring Adm to rehab post CVA. Tolerating regular diet and eating well. No skin breakdown, no issues w/ constipation. Initial mild hyperglycemia, resolved. Initial hypokalemia, resolved. Low Mg, resolved. No specific acute nutrition intervention appears indicated. Goals: Physical Therapy: Initial Goals Bed Mobility Assistance Independent Transfer Mobility Assistance Independent Transfer/Bed Mobility Rolling Walker Recommended Devices Ambulation Independent Ambulation Recommended Devices Rolling Walker Ambulation Distance 150 Wheelchair Propulsion Ability Standby Assistance Stairs Assistance Independent Stair Recommended Devices Two Rails Number of Stairs 5 Home Exercise Program Independent Assistance Physical Therapy: Updated Goals Bed Mobility Assistance Independent Transfer Mobility Assistance Independent Transfer/Bed Mobility Rolling Walker Recommended Devices Ambulation Assistance Independent Ambulation Assistive Devices Rolling Walker Ambulation Distance (ft) 150 Wheelchair Distance (ft) 100 Stairs Assistance Independent Stairs Recommended Devices Two Rails Number of Stairs 5 Occupational Therapy: Initial Goals Goals to be Completed in (Days 10-14 ) Upper Body Bathing Routine Independent Lower Body Bathing Routine Modified Independent with Upper Body Dressing Routine Independent Lower Body Dressing Routine Modified Independent with Toilet Hygeine and Clothing Modified Independent with Management Routine Toilet Transfer Routine Modified Independent with Step-In Shower Transfer Modified Independent with Routine Tub Transfer Routine Modified Independent with Functional Transfers for ADL Modified Independent with Grooming Routine Independent Feeding Routine Independent Light Housekeeping Tasks Modified Independent with Nutrition: Goals Intervention Goals 1. Maintain adequate oral intake to support maintenance of lean body mass. 2. Maintain BG, K, Mg WNL. Social Work: Goals Discharge Plan return home with home care svs and support from friends Potential for Family Training n/a family lives out of state Anticipated Discharge Home Destination Discharge With VNS and support from neighbor Care Plan: Care Plan ADL's - Improve/Maintain Start: 10/21/17 14:53 Freq: DAILY Status: Active Target: Protocol: Activity Type Activity Date Activity User E-Sign Co-Sign Detail Recorded Client Recorded Date Recorded By Document 10/21/17 14:53 [id number] 10/21/17 14:53 [id number] 10/21/17 14:53 PMRU Outcome: ADL's/ADL Transfers Orders/Interventions Occupational Therapy Evaluation & Treatment Communication Tool in Patient Room Device Yes Patient to receive OT 5x/wk for 60-120 Therex min/day Self Care Management Group Therapy UE/LE ADL's with Assist Yes ADL Transfers with Assist Yes Toileting: Transfers,Clothing Management Yes ,Hygeine w/Assist Light Kitchen/Laundry w/Assist Yes Progression Toward Outcome/Goals Progressing Outcome/Goals Met Pt presents with dizziness, R lateral lean with dynamic sitting and standing, decreased sitting and standing balance, decreased strength in RUE and RLE, and decreased I in LE dressing, bathing, toileting, and functional transfers. Pt lives alone and would not have consistent A at d/c. Pt would benefit from continued OT services to improve sitting and standing balance and strength, and to maximize functional independence in all ADLs and IADLs. DVT Prophylaxis- Improve/Maintain Start: 10/21/17 14:07 Freq: QSHIFT Status: Active Target: Protocol: Activity Type Activity Date Activity User E-Sign Co-Sign Detail Recorded Client Recorded Date Recorded By Document 10/22/17 00:41 [id number] 10/22/17 00:41 [id number] 10/22/17 00:41 PMRU Outcome: DVT Prophylaxis Outcome/Goals Remains Free of DVT Complies with DVT Prophylaxis /Treatment TEDS Stockings on Every AM, Off at HS Progression Toward Outcome/Goals Progressing Discharge Planning - Improve/Maintain Start: 10/21/17 14:07 Freq: DAILY Status: Active Target: Protocol: Activity Type Activity Date Activity User E-Sign Co-Sign Detail Recorded Client Recorded Date Recorded By Document 10/22/17 00:41 [id number] 10/22/17 00:41 [id number] 10/22/17 00:41 PMRU Outcome: Discharge Planning Update Patient Family No Outcome/Goals Demonstrates Understanding of Discharge Plan Education-Improve/Maintain Start: 10/21/17 14:07 Freq: QSHIFT Status: Active Target: Protocol: Activity Type Activity Date Activity User E-Sign Co-Sign Detail Recorded Client Recorded Date Recorded By Document 10/22/17 00:41 [id number] [id number] 10/22/17 00:41 [id number] 10/22/17 00:41 PMRU Outcome: Education Outcome/Goals Encourage Questions Progression Toward Outcome/Goals Progressing Medication Administration Start: 10/21/17 14:07 Freq: QSHIFT Status: Active Target: Protocol: Activity Type Activity Date Activity User E-Sign Co-Sign Detail Recorded Client Recorded Date Recorded By Document 10/22/17 00:41 [id number] [id number] 10/22/17 00:41 [id number] 10/22/17 00:41 PMRU Outcome: Medication Administration Assess Patient Knowledge/Teach Med Yes Education for all Meds Outcome/Goals Demonstrates Understanding Progression Towards Outcome/Goals Progressing Is Patient Going Home on Lovenox? No Neurological- Improve/Maintain Start: 10/21/17 14:07 Freq: QSHIFT Status: Active Target: Protocol: Activity Type Activity Date Activity User E-Sign Co-Sign Detail Recorded Client Recorded Date Recorded By Document 10/22/17 00:41 [id number] 10/22/17 00:41 [id number] 10/22/17 00:41 PMRU Outcome: Neurological Weakness/Aphasia Weakness Right Side Outcome/Goals Improve Neurological Status Maintain/ Improve Strength/ROM Progression Toward Outcome/Goals Progressing Safety- Improve/Maintain Start: 10/21/17 14:07 Freq: QSHIFT Status: Active Target: Protocol: Activity Type Activity Date Activity User E-Sign Co-Sign Detail Recorded Client Recorded Date Recorded By Document 10/22/17 00:41 [id number] [id number] 10/22/17 00:41 [id number] 10/22/17 00:41 PMRU Outcome: Safety Outcome/Goals Remain Free of Injury or Harm Prevent Falls/ Injury Progression Toward Outcome/Goals Progressing Outcome/Goals Met Comment PA in place Medicine Note: Length of Stay: 14 days Anticipated Discharge Destination: Home Tentative Discharge Date: 11/05/17 Discharged to: Home
[2017-10-22] MEDS: Atorvastatin* 40 MG TAB PO SCH (17:39)
[2017-10-22] MEDS: Acetaminophen TAB* 325 MG PO PRN (19:14)
[2017-10-22] MEDS: Senna TAB PO PRN (19:44)
[2017-10-23] MEDS: Acetaminophen TAB* 325 MG PO PRN ×2 (01:05→18:16)
[2017-10-23] MEDS: Heparin VIAL(*) 5000 UNITS/ML VIAL (FIVE THOUSAND) SUBCUT SCH ×3 (05:11→21:28)
[2017-10-23 06:55] LABS: ABS Basophils 0.1 10^3/ul (0-0.2); ABS Eosinophils 0.2 10^3/ul (0-0.6); ABS Lymphocytes 1.9 10^3/ul (1.0-4.8); ABS Monocytes 0.8 10^3/ul (0-0.8); ABS Neutrophils 4.1 10^3/ul (1.5-7.7); ABS Nucleated RBC 0 10^3/ul; Eosinophil % 3.3 % (0-6); Hematocrit 33 % (35-47); Hemoglobin 11.1 g/dl (12.0-16.0); Lymphocyte % 26.9 % (25-47); Mean Corpuscular HGB Conc 34 g/dl (31-36); Mean Corpuscular Hemoglobin 32 pg (27-31); Mean Corpuscular Volume 95 fL (80-97); Mean Platelet Volume 6.7 um3 (7.4-10.4); Nucleated Red Blood Cells % 0.1; Platelet Count 241 10^3/ul (150-450); Red Blood Count 3.46 10^6/ul (4.00-5.40); Red Cell Distribution Width 14 % (10.5-15); White Blood Count 7.2 10^3/ul (3.5-10.8)
[2017-10-23 07:58] LABS: EGFR Non-African American 42.3 (>60)
[2017-10-23] MEDS: Aspirin EC TAB* 81 MG TAB.EC PO SCH (08:22)
[2017-10-23] MEDS: Clopidogrel TAB* 75 MG PO SCH (08:22)
[2017-10-23] MEDS: CMC:Pantoprazole TAB (NF) 40 MG TAB PO SCH (08:22)
[2017-10-23] MEDS: Chlorthalidone TAB* 50 MG PO SCH (08:22)
[2017-10-23] MEDS: Fluticasone NASAL SPRAY 50MCG* 16 gm SPRAY BTL BOTH NARES SCH (08:22)
[2017-10-23] MEDS: Docusate CAP* 100 MG PO SCH ×2 (08:22→20:07)
[2017-10-23] MEDS: Atorvastatin* 40 MG TAB PO SCH (17:15)
--- NOTE | 2017-10-23 19:22 | PN ---
Progress Note Date of Service: 10/23/17 Note: NITZA ARNOLD was visited. Therapy notes read and reviewed. She had a MoCA administered by OT and did not do well. She seems to have a few more memory problems. Have asked STONE MASON to evaluate Current Medications: Active Medications Generic Name Dose Route Start Last Admin Trade Name Freq PRN Reason Stop Dose Admin Acetaminophen 650 mg 10/21/17 12:38 10/23/17 18:16 Tylenol Tab* PO 650 mg Q6H PRN Administration FEVER > 101 Aspirin 81 mg 10/22/17 09:00 10/23/17 08:22 Aspirin Ec Tab* PO 81 mg DAILY MEET Administration Atorvastatin Calcium 40 mg 10/22/17 17:00 10/23/17 17:15 Lipitor* PO 40 mg 1700 MEET Administration Chlorthalidone 25 mg 10/23/17 09:00 10/23/17 08:22 [place] Tab* PO 25 mg DAILY MEET Administration Clopidogrel Bisulfate 75 mg 10/22/17 09:00 10/23/17 08:22 Plavix Tab* PO 75 mg DAILY MEET Administration Docusate Sodium 100 mg 10/21/17 21:00 10/23/17 08:22 Colace Cap* PO 100 mg BID MEET Administration Fluticasone Propionate 2 spray 10/22/17 09:00 10/23/17 08:22 Flonase Nasal [place] 50mcg* BOTH NARES 2 spray DAILY MEET Administration Heparin Sodium (Porcine) 5,000 units 10/21/17 14:00 10/23/17 14:52 Heparin Vial(*) SUBCUT 5,000 units Q8HR MEET Administration Magnesium Hydroxide 30 ml 10/21/17 12:38 Milk Of Magnesia Liq* PO Q6H PRN CONSTIPATION Pantoprazole Sodium 40 mg 10/22/17 09:00 10/23/17 08:22 Protonix Tab (Nf) PO 40 mg DAILY MEET Administration Senna 2 tab 10/21/17 12:38 10/22/17 19:44 Senokot Tab* PO 2 tab BEDTIME PRN Administration CONSTIPATION Vital Signs: Vital Signs Temp Pulse Resp BP Pulse Ox 98.5 F 65 16 148/84 98 10/23/17 15:52 10/23/17 15:52 10/23/17 15:52 10/23/17 15:52 08/01/18 18:01 Lab Results: Laboratory Results - last 24 hr 10/23/17 10/23/17 06:41 06:41 WBC 7.2 RBC 3.46 L Hgb 11.1 L Hct 33 L MCV 95 MCH 32 H MCHC 34 RDW 14 Plt Count 241 MPV 6.7 L Neut % (Auto) 57.6 Lymph % (Auto) 26.9 Rhea % (Auto) 11.2 H Eos % (Auto) 3.3 Baso % (Auto) 1.0 Absolute Neuts (auto) 4.1 Absolute Lymphs (auto) 1.9 Absolute Monos (auto) 0.8 Absolute Eos (auto) 0.2 Absolute Basos (auto) 0.1 Absolute Nucleated RBC 0 Nucleated RBC % 0.1 Sodium 139 Potassium 4.1 Chloride 109 Carbon Dioxide 25 Anion Gap 5 BUN 27 H Creatinine 1.22 H Est GFR ( Amer) 51.2 Est GFR (Non-Af Amer) 42.3 BUN/Creatinine Ratio 22.1 H Glucose 94 Calcium 9.2 Total Bilirubin 0.40 AST 25 ALT 19 Alkaline Phosphatase 65 Total Protein 5.9 L Albumin 3.2 Globulin 2.7 Albumin/Globulin Ratio 1.2 Exam: HEENT: face appears symmetric LUNGS: Clear bilaterally HEART: I/ murmur ABDOMEN: Soft, +BS EXTREMITIES: 2+ edema at ankles NEUROLOGIC: alert and oriented. Muscle strength 4+/5 on right Assessment/Plan: 1. Left CVA with right sided weakness: PT/OT. DAPT (ASA/Plavix) for 30 days, then ASA alone, per neurology 2. HTN: restarted Chlorthalidone. Watch BP 3. Rheumatoid Arthritis: Will see when she can restart Enbrel 4. DVT Prophylaxis: Heparin S/Q 5. Advanced Directives: She has MOLST. DNR 6. Mitral Regurgitation on echo: restart Chlorthalidone 7. Memory Deficits: STONE MASON 10/23/17 19:22 10/23/17 19:23
[2017-10-24] MEDS: Acetaminophen TAB* 325 MG PO PRN ×3 (02:21→17:54)
[2017-10-24] MEDS: Heparin VIAL(*) 5000 UNITS/ML VIAL (FIVE THOUSAND) SUBCUT SCH ×3 (06:46→20:58)
[2017-10-24] MEDS: Chlorthalidone TAB* 50 MG PO SCH (09:25)
[2017-10-24] MEDS: CMC:Pantoprazole TAB (NF) 40 MG TAB PO SCH (09:25)
[2017-10-24] MEDS: Aspirin EC TAB* 81 MG TAB.EC PO SCH (09:26)
[2017-10-24] MEDS: Clopidogrel TAB* 75 MG PO SCH (09:26)
[2017-10-24] MEDS: Docusate CAP* 100 MG PO SCH ×2 (09:27→20:58)
[2017-10-24] MEDS: Fluticasone NASAL SPRAY 50MCG* 16 gm SPRAY BTL BOTH NARES SCH (09:28)
[2017-10-24] MEDS: Atorvastatin* 40 MG TAB PO SCH (17:54)
--- NOTE | 2017-10-24 19:24 | PN ---
Progress Note Date of Service: 10/24/17 Note: NITZA ARNOLD was visited. Therapy notes read and reviewed. Seems sharper to me tonight. Will send a UA to check for possible UTI as source of intermittent memory problems Current Medications: Active Medications Generic Name Dose Route Start Last Admin Trade Name Freq PRN Reason Stop Dose Admin Acetaminophen 650 mg 10/21/17 12:38 10/24/17 17:54 Tylenol Tab* PO 650 mg Q6H PRN Administration FEVER > 101 Aspirin 81 mg 10/22/17 09:00 10/24/17 09:26 Aspirin Ec Tab* PO 81 mg DAILY MEET Administration Atorvastatin Calcium 40 mg 10/22/17 17:00 10/24/17 17:54 Lipitor* PO 40 mg 1700 MEET Administration Chlorthalidone 25 mg 10/23/17 09:00 10/24/17 09:25 [place] Tab* PO 25 mg DAILY MEET Administration Clopidogrel Bisulfate 75 mg 10/22/17 09:00 10/24/17 09:26 Plavix Tab* PO 75 mg DAILY MEET Administration Docusate Sodium 100 mg 10/21/17 21:00 10/24/17 09:27 Colace Cap* PO Not Given BID MEET Fluticasone Propionate 2 spray 10/22/17 09:00 10/24/17 09:28 Flonase Nasal [place] 50mcg* BOTH NARES 2 spray DAILY MEET Administration Heparin Sodium (Porcine) 5,000 units 10/21/17 14:00 10/24/17 14:30 Heparin Vial(*) SUBCUT 5,000 units Q8HR MEET Administration Magnesium Hydroxide 30 ml 10/21/17 12:38 Milk Of Magnesia Liq* PO Q6H PRN CONSTIPATION Pantoprazole Sodium 40 mg 10/22/17 09:00 10/24/17 09:25 Protonix Tab (Nf) PO 40 mg DAILY MEET Administration Senna 2 tab 10/21/17 12:38 10/22/17 19:44 Senokot Tab* PO 2 tab BEDTIME PRN Administration CONSTIPATION Vital Signs: Vital Signs Temp Pulse Resp BP Pulse Ox 98.4 F 69 20 132/79 99 10/24/17 15:59 10/24/17 15:59 10/24/17 16:50 10/24/17 15:59 10/24/17 16:50 Exam: HEENT: face appears symmetric LUNGS: Clear bilaterally HEART: I/ murmur ABDOMEN: Soft, +BS EXTREMITIES: 2+ edema at ankles NEUROLOGIC: alert and oriented. Muscle strength 4+/5 on right Assessment/Plan: 1. Left CVA with right sided weakness: PT/OT. DAPT (ASA/Plavix) for 30 days, then ASA alone, per neurology 2. HTN: restarted Chlorthalidone. Will resume Losartan. Watch BP 3. Rheumatoid Arthritis: Will see when she can restart Enbrel 4. DVT Prophylaxis: Heparin S/Q 5. Advanced Directives: She has MOLST. DNR 6. 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
[2017-10-24 22:29] LABS: Urine Appearance Clear; Urine Blood Negative (Negative); Urine Color Yellow; Urine Ketones Negative (Negative); Urine Protein Negative (Negative); Urine Red Blood Cell Trace(0-2/hpf) (Absent); Urine Specific Gravity 1.015 (1.010-1.030); Urine Urobilinogen Negative (Negative); Urine White Blood Cell 2+(11-20/hpf) (Absent)
[2017-10-25] MEDS: Acetaminophen TAB* 325 MG PO PRN ×4 (00:01→22:01)
[2017-10-25] MEDS: Heparin VIAL(*) 5000 UNITS/ML VIAL (FIVE THOUSAND) SUBCUT SCH ×3 (06:48→22:00)
[2017-10-25] MEDS: Fluticasone NASAL SPRAY 50MCG* 16 gm SPRAY BTL BOTH NARES SCH (08:04)
[2017-10-25] MEDS: Clopidogrel TAB* 75 MG PO SCH (08:05)
[2017-10-25] MEDS: Docusate CAP* 100 MG PO SCH ×2 (08:05→19:51)
[2017-10-25] MEDS: Aspirin EC TAB* 81 MG TAB.EC PO SCH (08:05)
[2017-10-25] MEDS: Chlorthalidone TAB* 50 MG PO SCH (08:05)
[2017-10-25] MEDS: Losartan TAB* 25 MG PO SCH (08:05)
[2017-10-25] MEDS: CMC:Pantoprazole TAB (NF) 40 MG TAB PO SCH (08:05)
--- NOTE | 2017-10-25 12:27 | PN ---
Progress Note Date of Service: 10/25/17 Note: NITZA ARNOLD was visited. Nursing and therapy notes read and reviewed. No chest pain, shortness of breath or abdominal pain. She has been having a little more of her chronic low back pain. It bothers her more at night and is not comfortable on the mattress. Therapy concerned about possibly more confusion. UA was ordered yesterday. Current Medications: Active Medications Generic Name Dose Route Start Last Admin Trade Name Freq PRN Reason Stop Dose Admin Acetaminophen 650 mg 10/21/17 12:38 10/25/17 08:08 Tylenol Tab* PO 650 mg Q6H PRN Administration FEVER > 101 Aspirin 81 mg 10/22/17 09:00 10/25/17 08:05 Aspirin Ec Tab* PO 81 mg DAILY MEET Administration Atorvastatin Calcium 40 mg 10/22/17 17:00 10/24/17 17:54 Lipitor* PO 40 mg 1700 MEET Administration Chlorthalidone 25 mg 10/23/17 09:00 10/25/17 08:05 [place] Tab* PO 25 mg DAILY MEET Administration Clopidogrel Bisulfate 75 mg 10/22/17 09:00 10/25/17 08:05 Plavix Tab* PO 75 mg DAILY MEET Administration Docusate Sodium 100 mg 10/21/17 21:00 10/25/17 08:05 Colace Cap* PO 100 mg BID MEET Administration Fluticasone Propionate 2 spray 10/22/17 09:00 10/25/17 08:04 Flonase Nasal [place] 50mcg* BOTH NARES 2 spray DAILY MEET Administration Heparin Sodium (Porcine) 5,000 units 10/21/17 14:00 10/25/17 06:48 Heparin Vial(*) SUBCUT 5,000 units Q8HR MEET Administration Losartan Potassium 100 mg 10/25/17 09:00 10/25/17 08:05 Cozaar Tab* PO 100 mg DAILY MEET Administration Magnesium Hydroxide 30 ml 10/21/17 12:38 Milk Of Magnesia Liq* PO Q6H PRN CONSTIPATION Pantoprazole Sodium 40 mg 10/22/17 09:00 10/25/17 08:05 Protonix Tab (Nf) PO 40 mg DAILY MEET Administration Senna 2 tab 10/21/17 12:38 10/22/17 19:44 Senokot Tab* PO 2 tab BEDTIME PRN Administration CONSTIPATION Vital Signs: Vital Signs Temp Pulse Resp BP Pulse Ox 97.8 F 71 16 150/90 99 10/25/17 06:41 10/25/17 06:41 10/25/17 06:41 10/25/17 06:41 10/25/17 06:41 Lab Results: Laboratory Results - last 24 hr 10/24/17 22:03 Urine Color Yellow Urine Appearance Clear Urine pH 5.0 Ur Specific [place] 1.015 Urine Protein Negative Urine Ketones Negative Urine Blood Negative Urine Nitrate Positive A Urine Bilirubin Negative Urine Urobilinogen Negative Ur Leukocyte Esterase Negative Urine WBC (Auto) 2+(11-20/hpf) A Urine RBC (Auto) Trace(0-2/hpf) Ur Squamous Epith Cells Present A Urine Bacteria 1+ A Urine Glucose Negative Exam: GEN: no acute distress. alert and appropriate with conversation. LUNGS: Clear to auscultation bilaterally HEART: regular rate and rhythym. I/ systolic murmur ABDOMEN: Soft, +BS, non-tender, non-distended EXTREMITIES: 2+ edema at ankles NEUROLOGIC: Muscle strength 4+/5 in RUE and RLE with normal sensation. Assessment/Plan: 1. Left CVA with right sided weakness: PT/OT. DAPT (ASA/Plavix) for 30 days, then ASA alone, per neurology 2. HTN: Chlorthalidone. Restarted Losartan today. Watch BP 3. Rheumatoid Arthritis: Question when she can restart Enbrel 4. DVT Prophylaxis: Heparin S/Q 5. Advanced Directives: She has MOLST. DNR 6. Mitral Regurgitation on echo: restart Chlorthalidone 7. 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 UA not clearly UTI. Await cultures. 8. Chronic low back pain: get air mattress. 10/25/17 12:25
[2017-10-25] MEDS: Atorvastatin* 40 MG TAB PO SCH (17:05)
[2017-10-26] MEDS: Acetaminophen TAB* 325 MG PO PRN ×3 (05:51→23:41)
[2017-10-26] MEDS: Heparin VIAL(*) 5000 UNITS/ML VIAL (FIVE THOUSAND) SUBCUT SCH ×3 (05:52→22:10)
[2017-10-26] MEDS: Losartan TAB* 25 MG PO SCH (09:31)
[2017-10-26] MEDS: Docusate CAP* 100 MG PO SCH ×2 (09:32→19:59)
[2017-10-26] MEDS: Clopidogrel TAB* 75 MG PO SCH (09:32)
[2017-10-26] MEDS: Aspirin EC TAB* 81 MG TAB.EC PO SCH (09:32)
[2017-10-26] MEDS: CMC:Pantoprazole TAB (NF) 40 MG TAB PO SCH (09:32)
[2017-10-26] MEDS: Chlorthalidone TAB* 50 MG PO SCH (09:32)
[2017-10-26] MEDS: Fluticasone NASAL SPRAY 50MCG* 16 gm SPRAY BTL BOTH NARES SCH (09:37)
--- NOTE | 2017-10-26 13:10 | PN ---
Progress Note Date of Service: 10/26/17 Note: NITZA ARNOLD was visited. Nursing and therapy notes read and reviewed. Difficulty getting comfortable and sleeping. At home uses Advil PM. She is aware she cannot use ibuprofen now with plavix. Has chronic left leg pain from back injury. No chest pain, shortness of breath or abdominal pain. Current Medications: Active Medications Generic Name Dose Route Start Last Admin Trade Name Freq PRN Reason Stop Dose Admin Acetaminophen 650 mg 10/21/17 12:38 10/26/17 05:51 Tylenol Tab* PO 650 mg Q6H PRN Administration FEVER > 101 Aspirin 81 mg 10/22/17 09:00 10/26/17 09:32 Aspirin Ec Tab* PO 81 mg DAILY MEET Administration Atorvastatin Calcium 40 mg 10/22/17 17:00 10/25/17 17:05 Lipitor* PO 40 mg 1700 MEET Administration Chlorthalidone 25 mg 10/23/17 09:00 10/26/17 09:32 [place] Tab* PO 25 mg DAILY MEET Administration Clopidogrel Bisulfate 75 mg 10/22/17 09:00 10/26/17 09:32 Plavix Tab* PO 75 mg DAILY MEET Administration Docusate Sodium 100 mg 10/21/17 21:00 10/26/17 09:32 Colace Cap* PO 100 mg BID MEET Administration Fluticasone Propionate 2 spray 10/22/17 09:00 10/26/17 09:37 Flonase Nasal [place] 50mcg* BOTH NARES 2 spray DAILY MEET Administration Heparin Sodium (Porcine) 5,000 units 10/21/17 14:00 10/26/17 05:52 Heparin Vial(*) SUBCUT 5,000 units Q8HR MEET Administration Losartan Potassium 100 mg 10/25/17 09:00 10/26/17 09:31 Cozaar Tab* PO 100 mg DAILY MEET Administration Magnesium Hydroxide 30 ml 10/21/17 12:38 Milk Of Magnesia Liq* PO Q6H PRN CONSTIPATION Pantoprazole Sodium 40 mg 10/22/17 09:00 10/26/17 09:32 Protonix Tab (Nf) PO 40 mg DAILY MEET Administration Senna 2 tab 10/21/17 12:38 10/22/17 19:44 Senokot Tab* PO 2 tab BEDTIME PRN Administration CONSTIPATION Vital Signs: Vital Signs Temp Pulse Resp BP Pulse Ox 98.6 F 58 16 146/83 98 10/26/17 05:53 10/26/17 05:53 10/26/17 05:53 10/26/17 05:53 10/26/17 05:53 Lab Results: Ucx >100K E.coli pending sensitivities. Exam: GEN: no acute distress. alert and appropriate with conversation. LUNGS: Clear to auscultation bilaterally HEART: regular rate and rhythym. I/ systolic murmur ABDOMEN: Soft, +BS, non-tender, non-distended EXTREMITIES: 2+ edema at ankles NEUROLOGIC: Muscle strength 4+/5 in RUE and RLE with normal sensation. Assessment/Plan: 1. Left CVA with right sided weakness: PT/OT. DAPT (ASA/Plavix) for 30 days, then ASA alone, per neurology 2. HTN: Chlorthalidone/Losartan. 3. Rheumatoid Arthritis: Question when she can restart Enbrel 4. DVT Prophylaxis: Heparin S/Q 5. Advanced Directives: She has MOLST. DNR 6. 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 8. UTI Ecoli: sensitivities pending. Start cipro. f/u sensitivities. 9. Chronic low back pain: get air mattress. add benadryl at night and prn gabapentin. Warned of potential cognitive effects. 10/26/17 13:11
[2017-10-26] MEDS ORDERED: Gabapentin CAP(*) 100 MG PO PRN (13:13)
[2017-10-26] MEDS: Ciprofloxacin TAB* 250 MG PO SCH ×2 (14:27→19:59)
[2017-10-26] MEDS: Atorvastatin* 40 MG TAB PO SCH (17:20)
[2017-10-26] MEDS: Analgesic BALM* 114 GM TOPICAL SCH (19:59)
[2017-10-26] MEDS: diPHENhydraMINE PO* 25 MG PO SCH (19:59)
[2017-10-27] MEDS: Acetaminophen TAB* 325 MG PO PRN ×2 (05:43→16:00)
[2017-10-27] MEDS: Heparin VIAL(*) 5000 UNITS/ML VIAL (FIVE THOUSAND) SUBCUT SCH ×3 (05:43→22:17)
[2017-10-27] MEDS: Chlorthalidone TAB* 50 MG PO SCH (08:58)
[2017-10-27] MEDS: Ciprofloxacin TAB* 250 MG PO SCH ×2 (08:58→20:08)
[2017-10-27] MEDS: Clopidogrel TAB* 75 MG PO SCH (08:58)
[2017-10-27] MEDS: Analgesic BALM* 114 GM TOPICAL SCH ×3 (08:58→22:19)
[2017-10-27] MEDS: Docusate CAP* 100 MG PO SCH ×2 (08:58→20:08)
[2017-10-27] MEDS: Aspirin EC TAB* 81 MG TAB.EC PO SCH (08:58)
[2017-10-27] MEDS: Fluticasone NASAL SPRAY 50MCG* 16 gm SPRAY BTL BOTH NARES SCH (08:59)
[2017-10-27] MEDS: CMC:Pantoprazole TAB (NF) 40 MG TAB PO SCH (08:59)
[2017-10-27] MEDS: Losartan TAB* 25 MG PO SCH (09:07)
--- NOTE | 2017-10-27 11:31 | PN ---
Progress Note Date of Service: 10/27/17 Note: NITZA ARNOLD was visited. Nursing notes read and reviewed. No chest pain, shortness of breath or abdominal pain. She is annoyed by all her pains (left shoulder, back, left leg). Gabapentin made her feel like a noodle this morning (she took it at night). Topical bengay does help her shoulder. Started cipro for UTI. Current Medications: Active Medications Generic Name Dose Route Start Last Admin Trade Name Freq PRN Reason Stop Dose Admin Acetaminophen 650 mg 10/21/17 12:38 10/27/17 05:43 Tylenol Tab* PO 650 mg Q6H PRN Administration FEVER > 101 Aspirin 81 mg 10/22/17 09:00 10/27/17 08:58 Aspirin Ec Tab* PO 81 mg DAILY MEET Administration Atorvastatin Calcium 40 mg 10/22/17 17:00 10/26/17 17:20 Lipitor* PO 40 mg 1700 MEET Administration Chlorthalidone 25 mg 10/23/17 09:00 10/27/17 08:58 [place] Tab* PO 25 mg DAILY MEET Administration Ciprofloxacin 250 mg 10/26/17 13:30 10/27/17 08:58 Cipro Tab* PO 250 mg Q12HR MEET Administration Clopidogrel Bisulfate 75 mg 10/22/17 09:00 10/27/17 08:58 Plavix Tab* PO 75 mg DAILY MEET Administration Diphenhydramine HCl 25 mg 10/26/17 21:00 10/26/17 19:59 Benadryl Po* PO 25 mg BEDTIME MEET Administration Docusate Sodium 100 mg 10/21/17 21:00 10/27/17 08:58 Colace Cap* PO 100 mg BID MEET Administration Fluticasone Propionate 2 spray 10/22/17 09:00 10/27/17 08:59 Flonase Nasal [place] 50mcg* BOTH NARES 2 spray DAILY MEET Administration Heparin Sodium (Porcine) 5,000 units 10/21/17 14:00 10/27/17 05:43 Heparin Vial(*) SUBCUT 5,000 units Q8HR MEET Administration Losartan Potassium 100 mg 10/25/17 09:00 10/27/17 09:07 Cozaar Tab* PO 100 mg DAILY MEET Administration Magnesium Hydroxide 30 ml 10/21/17 12:38 Milk Of Magnesia Liq* PO Q6H PRN CONSTIPATION Multi-Ingredient Liniment/Rub 1 applic 10/26/17 21:00 10/27/17 08:58 Calos Mccartney* TOPICAL 1 applic TID MEET Administration Pantoprazole Sodium 40 mg 10/22/17 09:00 10/27/17 08:59 Protonix Tab (Nf) PO 40 mg DAILY MEET Administration Senna 2 tab 10/21/17 12:38 10/22/17 19:44 Senokot Tab* PO 2 tab BEDTIME PRN Administration CONSTIPATION Tramadol HCl 50 mg 10/27/17 11:24 Ultram* PO Q6H PRN PAIN Vital Signs: Vital Signs Temp Pulse Resp BP Pulse Ox 97.0 F 61 18 140/68 97 10/27/17 06:45 10/27/17 07:17 10/27/17 06:45 10/27/17 07:17 10/27/17 07:17 Exam: GEN: no acute distress. alert and appropriate with conversation. LUNGS: Clear to auscultation bilaterally HEART: regular rate and rhythym. I/ systolic murmur ABDOMEN: Soft, +BS, non-tender, non-distended EXTREMITIES: 2+ edema at ankles NEUROLOGIC: Muscle strength 4+/5 in RUE and RLE with normal sensation. Assessment/Plan: 1. Left CVA with right sided weakness: PT/OT. DAPT (ASA/Plavix) for 30 days, then ASA alone, per neurology 2. HTN: Chlorthalidone/Losartan. 3. Rheumatoid Arthritis and pains: Find out on Saturday if she can restart Enbrel. Add tramadol 50mg q6h prn pain. She was warned of potential sedation. Continue tylenol prn. Cannot use nsaids due to plavix and stroke. 4. DVT Prophylaxis: Heparin S/Q 5. Advanced Directives: She has MOLST. DNR 6. 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 8. UTI Ecoli sensitive to Cipro: Cipro Day #2 9. Chronic low back pain: Did not tolerate gabapentin so d/c. Benadryl qhs. Added tramadol prn. May also help if can restart Enbrel. 10/27/17 11:27
[2017-10-27] MEDS: Atorvastatin* 40 MG TAB PO SCH (17:12)
[2017-10-27] MEDS: diPHENhydraMINE PO* 25 MG PO SCH (20:08)
[2017-10-27] MEDS: Senna TAB PO PRN (20:08)
[2017-10-28] MEDS: Heparin VIAL(*) 5000 UNITS/ML VIAL (FIVE THOUSAND) SUBCUT SCH ×3 (05:40→21:10)
[2017-10-28] MEDS: Aspirin EC TAB* 81 MG TAB.EC PO SCH (10:28)
[2017-10-28] MEDS: Chlorthalidone TAB* 50 MG PO SCH (10:28)
[2017-10-28] MEDS: Ciprofloxacin TAB* 250 MG PO SCH ×2 (10:28→20:03)
[2017-10-28] MEDS: Fluticasone NASAL SPRAY 50MCG* 16 gm SPRAY BTL BOTH NARES SCH (10:29)
[2017-10-28] MEDS: Clopidogrel TAB* 75 MG PO SCH (10:29)
[2017-10-28] MEDS: Losartan TAB* 25 MG PO SCH (10:30)
[2017-10-28] MEDS: Acetaminophen TAB* 325 MG PO PRN ×3 (10:31→23:51)
[2017-10-28] MEDS: CMC:Pantoprazole TAB (NF) 40 MG TAB PO SCH (10:31)
[2017-10-28] MEDS: Docusate CAP* 100 MG PO SCH ×2 (10:40→20:03)
[2017-10-28] MEDS: Analgesic BALM* 114 GM TOPICAL SCH ×3 (10:40→20:04)
--- NOTE | 2017-10-28 17:43 | PN ---
Progress Note Date of Service: 10/28/17 Note: NITZA ARNOLD was visited. Therapy notes read and reviewed. I don't think there is a good reason she can't restart Enbrel at this point, so will resume for Saturday Current Medications: Active Medications Generic Name Dose Route Start Last Admin Trade Name Freq PRN Reason Stop Dose Admin Acetaminophen 650 mg 10/21/17 12:38 10/28/17 10:31 Tylenol Tab* PO 650 mg Q6H PRN Administration FEVER > 101 Aspirin 81 mg 10/22/17 09:00 10/28/17 10:28 Aspirin Ec Tab* PO 81 mg DAILY MEET Administration Atorvastatin Calcium 40 mg 10/22/17 17:00 10/27/17 17:12 Lipitor* PO 40 mg 1700 MEET Administration Chlorthalidone 25 mg 10/23/17 09:00 10/28/17 10:28 [place] Tab* PO 25 mg DAILY MEET Administration Ciprofloxacin 250 mg 10/26/17 13:30 10/28/17 10:28 Cipro Tab* PO 250 mg Q12HR MEET Administration Clopidogrel Bisulfate 75 mg 10/22/17 09:00 10/28/17 10:29 Plavix Tab* PO 75 mg DAILY MEET Administration Diphenhydramine HCl 25 mg 10/26/17 21:00 10/27/17 20:08 Benadryl Po* PO 25 mg BEDTIME MEET Administration Docusate Sodium 100 mg 10/21/17 21:00 10/28/17 10:40 Colace Cap* PO 100 mg BID MEET Administration Fluticasone Propionate 2 spray 10/22/17 09:00 10/28/17 10:29 Flonase Nasal [place] 50mcg* BOTH NARES 2 spray DAILY MEET Administration Heparin Sodium (Porcine) 5,000 units 10/21/17 14:00 10/28/17 14:10 Heparin Vial(*) SUBCUT 5,000 units Q8HR MEET Administration Losartan Potassium 100 mg 10/25/17 09:00 10/28/17 10:30 Cozaar Tab* PO 100 mg DAILY MEET Administration Magnesium Hydroxide 30 ml 10/21/17 12:38 Milk Of Magnesia Liq* PO Q6H PRN CONSTIPATION Multi-Ingredient Liniment/Rub 1 applic 10/26/17 21:00 10/28/17 14:10 Calos Mccartney* TOPICAL 1 applic TID MEET Administration Pantoprazole Sodium 40 mg 10/22/17 09:00 10/28/17 10:31 Protonix Tab (Nf) PO 40 mg DAILY MEET Administration Senna 2 tab 10/21/17 12:38 10/27/17 20:08 Senokot Tab* PO 2 tab BEDTIME PRN Administration CONSTIPATION Tramadol HCl 50 mg 10/27/17 11:24 Ultram* PO Q6H PRN PAIN Vital Signs: Vital Signs Temp Pulse Resp BP Pulse Ox 98.1 F 79 20 138/84 99 10/28/17 16:25 10/28/17 16:25 10/28/17 16:25 10/28/17 16:25 10/28/17 16:25 Exam: LUNGS: Clear to auscultation bilaterally HEART: regular rate and rhythym. I/ systolic murmur ABDOMEN: Soft, +BS, non-tender, non-distended EXTREMITIES: 2+ edema at ankles NEUROLOGIC: Muscle strength 4+/5 in RUE and RLE with normal sensation. Assessment/Plan: 1. Left CVA with right sided weakness: PT/OT. DAPT (ASA/Plavix) for 30 days, then ASA alone, per neurology 2. HTN: Chlorthalidone/Losartan. 3. Rheumatoid Arthritis: restart Enbrel this wek. Added tramadol. Continue tylenol prn. Cannot use NSAIDs due to plavix and stroke. 4. DVT Prophylaxis: Heparin S/Q 5. Advanced Directives: She has MOLST. DNR 6. 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 8. UTI Ecoli sensitive to Cipro: Cipro Day #3 9. Chronic low back pain: Benadryl qhs. Added tramadol prn. May also help if can restart Enbrel. 10/28/17 17:43
[2017-10-28] MEDS: Atorvastatin* 40 MG TAB PO SCH (18:16)
[2017-10-28] MEDS: diPHENhydraMINE PO* 25 MG PO SCH (20:03)
[2017-10-28] MEDS: traMADol TAB* 50 MG PO PRN (21:09)
[2017-10-29] MEDS: Heparin VIAL(*) 5000 UNITS/ML VIAL (FIVE THOUSAND) SUBCUT SCH ×3 (06:33→22:11)
[2017-10-29] MEDS: Ciprofloxacin TAB* 250 MG PO SCH ×2 (09:25→20:14)
[2017-10-29] MEDS: Losartan TAB* 25 MG PO SCH (09:25)
[2017-10-29] MEDS: Clopidogrel TAB* 75 MG PO SCH (09:25)
[2017-10-29] MEDS: Chlorthalidone TAB* 50 MG PO SCH (09:25)
[2017-10-29] MEDS: Aspirin EC TAB* 81 MG TAB.EC PO SCH (09:25)
[2017-10-29] MEDS: CMC:Pantoprazole TAB (NF) 40 MG TAB PO SCH (09:25)
[2017-10-29] MEDS: Docusate CAP* 100 MG PO SCH ×2 (09:26→20:13)
[2017-10-29] MEDS: Fluticasone NASAL SPRAY 50MCG* 16 gm SPRAY BTL BOTH NARES SCH (09:28)
[2017-10-29] MEDS: Analgesic BALM* 114 GM TOPICAL SCH ×3 (09:29→20:14)
[2017-10-29] MEDS: Acetaminophen TAB* 325 MG PO PRN ×2 (09:31→19:10)
--- NOTE | 2017-10-29 12:37 | PMRUTEAM ---
PMRU: Team Meeting Current Status: Nursing: Current Status Skin Deviations [No Skin Other Issues] Skin Deviations [Bilateral Arm Bruise ] Skin Deviation Description [No no issues Skin Issues] Skin Deviation Description [ healing Bilateral Arm] Bladder Current Status voiding in br Bowel Current Status bm 8/ Nutrition Current Status appetite good Medication Current Status needs reinforcement. takes tylenol for pain Physical Therapy: Current Status Bed Mobility Assistance Supervision Transfer Moblility Assistance Supervision Transfer/Bed Mobility Rolling Walker Recommended Devices Transfer Mobility Comment Pt. is able to perfodrma SPT using a 2 w/w cg to x 1. Ambulation Assistance Supervision Ambulation Assistive Devices Rolling Walker Number of Feet Patient 150' Ambulated Ambulation Comment Pt. presents a modified short step reciparocal type gait pattern. Stairs Assistance Supervision Stairs Recommended Devices Two Rails Number of Stairs 5 Curb Not Tested Manual Wheelchair Control/ Bilateral UE/Bilateral LE Technique Wheelchair Propulsion Ability Standby Assistance Wheelchair Distance (ft) 120 Objective Comments multiple bouts of standing functional activity with UEs, reaching to limits of stability without LOb Occupational Therapy: Current Status Upper Body Dressing Min Assist Upper Body Dressing Progress with set up Lower Body Dressing Contact Guard Assist Bathing Contact Guard Assist Bathing Progress cga/rw to stand to clean [place] area Toileting Contact Guard Assist Toileting Progress cga/rw to stand to adjust depends and clean [place] area Toilet Transfer Contact Guard Assist Shower Transfer Contact Guard Assist Eating Supervision Rec Therapy: Current Status Summary of Assessment and Pt. was open to conversation - very engaged in Clinical Impression conversation and reminisced about her travels and work in [place]. Pt. states she enjoys her life and has passions that continue to bring her marcia. Pt. was open to continued leisure visits. Treatment Goals Pt. will engage in leisure activities while on the unit. Treatment Plan Provide RT services and encourage involvement. Allow for expression and reminiscing. Social Work: Current Status Discharge Plan return home with home care svs and support from friends Potential for Family Training n/a family lives out of state Anticipated Discharge Home Destination Discharge With VNS and support from neighbor Nutrition: Current Status Monitoring recovering from left CVA. Tolerating regular diet without dysphagia; variable po intake. No skin breakdown, no issues w/constipation. Initial mild hyperglycemia resolved (BG 94). Initial hypokalemia resolved (K 4.1). Bowel pattern appears regulated without complaint; bowel meds prn. Appears to be meeting goals as outlined below. Speech: Current Status Assessment Patient is progressing as expected. Patient effectively used nonmedicinal methods to manage pain. Speech Current Status Goal 1 Progressing as expected Goals: Physical Therapy: Initial Goals Bed Mobility Assistance Independent Transfer Mobility Assistance Independent Transfer/Bed Mobility Rolling Walker Recommended Devices Ambulation Independent Ambulation Recommended Devices Rolling Walker Ambulation Distance 150 Wheelchair Propulsion Ability Standby Assistance Stairs Assistance Independent Stair Recommended Devices Two Rails Number of Stairs 5 Home Exercise Program Independent Assistance Physical Therapy: Updated Goals Bed Mobility Assistance Independent Transfer Mobility Assistance Independent Transfer/Bed Mobility Rolling Walker Recommended Devices Ambulation Assistance Independent Ambulation Assistive Devices Rolling Walker Ambulation Distance (ft) 150 Wheelchair Distance (ft) 100 Stairs Assistance Independent Stairs Recommended Devices Two Rails Number of Stairs 5 Occupational Therapy: Initial Goals Goals to be Completed in (Days 10-14 ) Upper Body Bathing Routine Independent Lower Body Bathing Routine Modified Independent with Upper Body Dressing Routine Independent Lower Body Dressing Routine Modified Independent with Toilet Hygeine and Clothing Modified Independent with Management Routine Toilet Transfer Routine Modified Independent with Step-In Shower Transfer Modified Independent with Routine Tub Transfer Routine Modified Independent with Functional Transfers for ADL Modified Independent with Grooming Routine Independent Feeding Routine Independent Light Housekeeping Tasks Modified Independent with Nursing: Goals Bladder Goal independent Bowel Goal independent Nutrition Goal 100% of all meals eaten Medication Goal independent Nutrition: Goals Intervention Goals 1. Intake will remain adequate to maintain stable wt and skin integrity 2. Pt will establish regular bowel pattern without constipation (or diarrhea) Speech: Goals Speech Goal 1 Motor-speech Speech Current Status Goal 1 Progressing as expected Goal 1 Comments Long-Term Goal: Pt speak with 95% intelligibility I'ly Short-Term Goal 1: Pt will use compensatory articulation strategies to increase speech to intelligibility to 95% in spontaneous conversational speech, given minimal cueing. Short-Term Goal 2: Pt will use compensatory articulation strategies to increase speech to intelligibility to 95% in structured speech activities, given minimal cueing. Status: Progressing as expected. Patient c/o her s[eech feeling sluggish. NUCLEAR MEDICINE MEDICAL DIRECTOR instructed patient in speech correction strategies . Patient chose slower rate and oral relaxation techniques, and demonstrated clear articulate speech w/ 100% intelligibility. Speech Goal 2 Expressive Language Speech Goal 2 Comments Word-Finding Long-Term Goal: Pt will use conversational repair strategies to cooperatively find words in structured conversation, 100% accuracy, given extra time, Independently. Short-Term Goal: Pt will use conversational repair strategies to cooperatively find words in structured language activities, 75% accuracy, given Moderate skilled instruction and cueing. Status: Progressing as expected. Speech Goal 3 Problem Solving Speech Goal 3 Comments Long-Term Goal: Pt will use compensatory strategies to solve moderately complex routine problems, with 100% accuracy, Independently, for ADLs such as shopping, time and money management. Short-Term Goal: Pt will use compensatory strategies to solve moderately complex routine problems, with 80% accuracy, given Moderate skilled instruction and cueing. Status: Progressing as expected. Patient expressed fatigue and poor concentration due to pain and poor sleep. NUCLEAR MEDICINE MEDICAL DIRECTOR instructed patient to use visualization relaxation technique to calm herself and increase concentration. Patient reported reduction in pain and demonstrated improved attention after visualization exercise. NUCLEAR MEDICINE MEDICAL DIRECTOR presented 9 pictures on a page and instructed patient to study then for a minute, then recall after delay with distraction. Patient recalled 3/9 I'ly. NUCLEAR MEDICINE MEDICAL DIRECTOR instructed patient to attend to each picture, relate a personal story, and relate each to pone other picture. After 4 pictures, patient recalled 3/4 I'ly. After 2 more pictures and further review using Spaced Retrieval technqie, patient recalled 4/6 I'ly. Patient sopped to do brief visualization 1x and returned to task with improved concentration. Social Work: Goals Discharge Plan return home with home care svs and support from friends Potential for Family Training n/a family lives out of state Anticipated Discharge Home Destination Discharge With VNS and support from neighbor Care Plan: Care Plan ADL's - Improve/Maintain Start: 10/21/17 14:53 Freq: DAILY Status: Active Target: Protocol: Activity Type Activity Date Activity User E-Sign Co-Sign Detail Recorded Client Recorded Date Recorded By Document 10/28/17 15:02 [id number] 10/28/17 15:02 [id number] 10/28/17 15:02 PMRU Outcome: ADL's/ADL Transfers Orders/Interventions Occupational Therapy Evaluation & Treatment Communication Tool in Patient Room Device Yes Patient to receive OT 5x/wk for 60-120 Therex min/day Self Care Management Group Therapy UE/LE ADL's with Assist Yes ADL Transfers with Assist Yes Toileting: Transfers,Clothing Management Yes ,Hygeine w/Assist Light Kitchen/Laundry w/Assist Yes Progression Toward Outcome/Goals Progressing Outcome/Goals Met Pt remembered to adjust depends before ambulating to sink. Pt sometimes forgets the task she is in the middle of, such as when she said she was set to brush her teeth before she completed LE dressing. Communication-Improve/Maintain Start: 10/24/17 18:47 Freq: DAILY Status: Active Target: Protocol: Activity Type Activity Date Activity User E-Sign Co-Sign Detail Recorded Client Recorded Date Recorded By Document 10/28/17 17:31 [id number] [email or web address] 10/28/17 17:31 [id number] 10/28/17 17:31 PMRU Outcome: Communication/Cognitive Status Other Outcomes/Goals Motor-speech Long-Term Goal: Pt speak with 95% intelligibility I'ly Short-Term Goal 1: Pt will use compensatory articulation strategies to increase speech to intelligibility to 95% in spontaneous conversational speech, given minimal cueing. Short-Term Goal 2: Pt will use compensatory articulation strategies to increase speech to intelligibility to 95% in structured speech activities, given minimal cueing. Expressive Language Long-Term Goal: Pt will use conversational repair strategies to cooperatively find words in structured conversation, 100% accuracy, given extra time, Independently. Short-Term Goal : Pt will use conversational repair strategies to cooperatively find words in structured language activities, 75% accuracy, given Moderate skilled instruction and cueing. Problem Solving Long-Term Goal: Pt will use compensatory strategies to solve moderately complex routine problems, with 100% accuracy, Independently, for ADLs such as shopping, time and money management. Short-Term Goal : Pt will use compensatory strategies to solve moderately complex routine problems, with 80% accuracy, given Moderate skilled instruction and cueing. Progression Toward Outcomes/Goals Progressing Outcome/Goals Met Comment Patient is progressing as expected. Patient effectively used nonmedicinal methods to manage pain. DVT Prophylaxis- Improve/Maintain Start: 10/21/17 14:07 Freq: QSHIFT Status: Active Target: Protocol: Activity Type Activity Date Activity User E-Sign Co-Sign Detail Recorded Client Recorded Date Recorded By Document 10/29/17 11:02 [id number] 10/29/17 11:03 [id number] 10/29/17 11:02 PMRU Outcome: DVT Prophylaxis Outcome/Goals Remains Free of DVT Complies with DVT Prophylaxis /Treatment TEDS Stockings on Every AM, Off at HS Progression Toward Outcome/Goals Progressing Discharge Planning - Improve/Maintain Start: 10/21/17 14:07 Freq: DAILY Status: Complete Target: Protocol: Activity Type Activity Date Activity User E-Sign Co-Sign Detail Recorded Client Recorded Date Recorded By Document 10/24/17 04:00 [id number] 10/24/17 04:01 [id number] 10/24/17 04:00 PMRU Outcome: Discharge Planning Update Patient Family No Outcome/Goals Demonstrates Understanding of Discharge Plan Progression Toward Outcome/Goals Progressing Education-Improve/Maintain Start: 10/21/17 14:07 Freq: QSHIFT Status: Active Target: Protocol: Activity Type Activity Date Activity User E-Sign Co-Sign Detail Recorded Client Recorded Date Recorded By Document 10/29/17 11:02 [id number] 10/29/17 11:03 [id number] 10/29/17 11:02 PMRU Outcome: Education Outcome/Goals Encourage Questions Progression Toward Outcome/Goals Progressing Medication Administration Start: 10/21/17 14:07 Freq: QSHIFT Status: Active Target: Protocol: Activity Type Activity Date Activity User E-Sign Co-Sign Detail Recorded Client Recorded Date Recorded By Document 10/29/17 11:02 [id number] 10/29/17 11:03 [id number] 10/29/17 11:02 PMRU Outcome: Medication Administration Assess Patient Knowledge/Teach Med Yes Education for all Meds Outcome/Goals Demonstrates Understanding Progression Towards Outcome/Goals Progressing Is Patient Going Home on Lovenox? No Neurological- Improve/Maintain Start: 10/21/17 14:07 Freq: QSHIFT Status: Active Target: Protocol: Activity Type Activity Date Activity User E-Sign Co-Sign Detail Recorded Client Recorded Date Recorded By Document 10/29/17 11:02 [id number] 10/29/17 11:03 [id number] 10/29/17 11:02 PMRU Outcome: Neurological Weakness/Aphasia Weakness Right Side Outcome/Goals Improve Neurological Status Maintain/ Improve Strength/ROM Progression Toward Outcome/Goals Progressing Safety- Improve/Maintain Start: 10/21/17 14:07 Freq: QSHIFT Status: Active Target: Protocol: Activity Type Activity Date Activity User E-Sign Co-Sign Detail Recorded Client Recorded Date Recorded By Document 10/29/17 11:02 [id number] 10/29/17 11:03 [id number] 10/29/17 11:02 PMRU Outcome: Safety Outcome/Goals Cooperates with Safety Measures for Least Restrictive Environment Prevent Falls/ Injury Progression Toward Outcome/Goals Progressing Medicine Note: Length of Stay: 3 days Anticipated Discharge Destination: Home Tentative Discharge Date: 11/01/17 Discharged to: Home
[2017-10-29] MEDS: Atorvastatin* 40 MG TAB PO SCH (17:02)
--- NOTE | 2017-10-29 17:02 | PN ---
Progress Note Date of Service: 10/29/17 Note: NITZA ARNOLD was visited. Therapy notes read and reviewed. She was discussed in interdisciplinary team rounds. She is making gains and will hopefully go home at the end of the week Current Medications: Active Medications Generic Name Dose Route Start Last Admin Trade Name Freq PRN Reason Stop Dose Admin Acetaminophen 650 mg 10/21/17 12:38 10/29/17 09:31 Tylenol Tab* PO 650 mg Q6H PRN Administration FEVER > 101 Aspirin 81 mg 10/22/17 09:00 10/29/17 09:25 Aspirin Ec Tab* PO 81 mg DAILY MEET Administration Atorvastatin Calcium 40 mg 10/22/17 17:00 10/28/17 18:16 Lipitor* PO 40 mg 1700 MEET Administration Chlorthalidone 25 mg 10/23/17 09:00 10/29/17 09:25 [place] Tab* PO 25 mg DAILY MEET Administration Ciprofloxacin 250 mg 10/26/17 13:30 10/29/17 09:25 Cipro Tab* PO 250 mg Q12HR MEET Administration Clopidogrel Bisulfate 75 mg 10/22/17 09:00 10/29/17 09:25 Plavix Tab* PO 75 mg DAILY MEET Administration Diphenhydramine HCl 25 mg 10/26/17 21:00 10/28/17 20:03 Benadryl Po* PO 25 mg BEDTIME MEET Administration Docusate Sodium 100 mg 10/21/17 21:00 10/29/17 09:26 Colace Cap* PO 100 mg BID MEET Administration Fluticasone Propionate 2 spray 10/22/17 09:00 10/29/17 09:28 Flonase Nasal [place] 50mcg* BOTH NARES 2 spray DAILY MEET Administration Heparin Sodium (Porcine) 5,000 units 10/21/17 14:00 10/29/17 14:44 Heparin Vial(*) SUBCUT 5,000 units Q8HR MEET Administration Losartan Potassium 100 mg 10/25/17 09:00 10/29/17 09:25 Cozaar Tab* PO 100 mg DAILY MEET Administration Magnesium Hydroxide 30 ml 10/21/17 12:38 Milk Of Magnesia Liq* PO Q6H PRN CONSTIPATION Multi-Ingredient Liniment/Rub 1 applic 10/26/17 21:00 10/29/17 14:46 Calos Mccartney* TOPICAL 1 applic TID MEET Administration Pantoprazole Sodium 40 mg 10/22/17 09:00 10/29/17 09:25 Protonix Tab (Nf) PO 40 mg DAILY MEET Administration Senna 2 tab 10/21/17 12:38 10/27/17 20:08 Senokot Tab* PO 2 tab BEDTIME PRN Administration CONSTIPATION Tramadol HCl 50 mg 10/27/17 11:24 10/28/17 21:09 Ultram* PO 50 mg Q6H PRN Administration PAIN Vital Signs: Vital Signs Temp Pulse Resp BP Pulse Ox 97.6 F 73 16 120/88 96 10/29/17 15:04 10/29/17 15:04 10/29/17 15:52 10/29/17 16:01 10/29/17 15:04 Exam: LUNGS: Clear to auscultation bilaterally HEART: regular rate and rhythym. I/ systolic murmur ABDOMEN: Soft, +BS, non-tender, non-distended EXTREMITIES: 2+ edema at ankles NEUROLOGIC: Muscle strength 4+/5 in RUE and RLE with normal sensation. Assessment/Plan: 1. Left CVA with right sided weakness: PT/OT. DAPT (ASA/Plavix) for 30 days, then ASA alone, per neurology 2. HTN: Chlorthalidone/Losartan. 3. Rheumatoid Arthritis: restart Enbrel this week. Added tramadol. Continue tylenol prn. Cannot use NSAIDs due to plavix and stroke. 4. DVT Prophylaxis: Heparin S/Q 5. Advanced Directives: She has MOLST. DNR 6. 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 8. UTI Ecoli sensitive to Cipro: Cipro Day #4 9. Chronic low back pain: Benadryl qhs. Added tramadol prn. can restart Enbrel. 10/29/17 17:02
[2017-10-29] MEDS: diPHENhydraMINE PO* 25 MG PO SCH (20:13)
[2017-10-30] MEDS: Acetaminophen TAB* 325 MG PO PRN ×2 (02:03→22:51)
[2017-10-30 05:11] LABS: ABS Basophils 0.1 10^3/ul (0-0.2); ABS Eosinophils 0.2 10^3/ul (0-0.6); ABS Lymphocytes 2.2 10^3/ul (1.0-4.8); ABS Monocytes 0.7 10^3/ul (0-0.8); ABS Neutrophils 3.6 10^3/ul (1.5-7.7); ABS Nucleated RBC 0 10^3/ul; Eosinophil % 3.2 % (0-6); Hematocrit 32 % (35-47); Hemoglobin 10.8 g/dl (12.0-16.0); Lymphocyte % 31.9 % (25-47); Mean Corpuscular HGB Conc 34 g/dl (31-36); Mean Corpuscular Hemoglobin 33 pg (27-31); Mean Corpuscular Volume 96 fL (80-97); Mean Platelet Volume 6.5 um3 (7.4-10.4); Nucleated Red Blood Cells % 0; Platelet Count 283 10^3/ul (150-450); Red Blood Count 3.29 10^6/ul (4.00-5.40); Red Cell Distribution Width 14 % (10.5-15); White Blood Count 6.8 10^3/ul (3.5-10.8)
[2017-10-30 05:27] LABS: EGFR Non-African American 32.8 (>60)
[2017-10-30] MEDS: Heparin VIAL(*) 5000 UNITS/ML VIAL (FIVE THOUSAND) SUBCUT SCH ×2 (06:08→16:08)
[2017-10-30] MEDS: Clopidogrel TAB* 75 MG PO SCH (09:33)
[2017-10-30] MEDS: Aspirin EC TAB* 81 MG TAB.EC PO SCH (09:33)
[2017-10-30] MEDS: Analgesic BALM* 114 GM TOPICAL SCH ×3 (09:33→21:12)
[2017-10-30] MEDS: Ciprofloxacin TAB* 250 MG PO SCH ×2 (09:33→21:11)
[2017-10-30] MEDS: Chlorthalidone TAB* 50 MG PO SCH (09:33)
[2017-10-30] MEDS: Losartan TAB* 25 MG PO SCH (09:34)
[2017-10-30] MEDS: Docusate CAP* 100 MG PO SCH ×2 (09:34→21:12)
[2017-10-30] MEDS: Fluticasone NASAL SPRAY 50MCG* 16 gm SPRAY BTL BOTH NARES SCH (09:34)
[2017-10-30] MEDS: CMC:Pantoprazole TAB (NF) 40 MG TAB PO SCH (09:35)
[2017-10-30] MEDS: Atorvastatin* 40 MG TAB PO SCH (17:02)
[2017-10-30] MEDS: traMADol TAB* 50 MG PO PRN (17:02)
--- NOTE | 2017-10-30 19:54 | PN ---
Progress Note Date of Service: 10/30/17 Note: NITZA ARNOLD was visited. Therapy notes read and reviewed. She will go home Saturday. She is walking fairly well and transfers are much better. Current Medications: Active Medications Generic Name Dose Route Start Last Admin Trade Name Freq PRN Reason Stop Dose Admin Acetaminophen 650 mg 10/21/17 12:38 10/30/17 02:03 Tylenol Tab* PO 650 mg Q6H PRN Administration FEVER > 101 Aspirin 81 mg 10/22/17 09:00 10/30/17 09:33 Aspirin Ec Tab* PO 81 mg DAILY MEET Administration Atorvastatin Calcium 40 mg 10/22/17 17:00 10/30/17 17:02 Lipitor* PO 40 mg 1700 MEET Administration Chlorthalidone 25 mg 10/23/17 09:00 10/30/17 09:33 [place] Tab* PO 25 mg DAILY MEET Administration Ciprofloxacin 250 mg 10/26/17 13:30 10/30/17 09:33 Cipro Tab* PO 250 mg Q12HR MEET Administration Clopidogrel Bisulfate 75 mg 10/22/17 09:00 10/30/17 09:33 Plavix Tab* PO 75 mg DAILY MEET Administration Diphenhydramine HCl 25 mg 10/26/17 21:00 10/29/17 20:13 Benadryl Po* PO 25 mg BEDTIME MEET Administration Docusate Sodium 100 mg 10/21/17 21:00 10/30/17 09:34 Colace Cap* PO 100 mg BID MEET Administration Fluticasone Propionate 2 spray 10/22/17 09:00 10/30/17 09:34 Flonase Nasal [place] 50mcg* BOTH NARES 2 spray DAILY MEET Administration Heparin Sodium (Porcine) 5,000 units 10/21/17 14:00 10/30/17 16:08 Heparin Vial(*) SUBCUT 5,000 units Q8HR MEET Administration Losartan Potassium 100 mg 10/25/17 09:00 10/30/17 09:34 Cozaar Tab* PO 100 mg DAILY MEET Administration Magnesium Hydroxide 30 ml 10/21/17 12:38 Milk Of Magnesia Liq* PO Q6H PRN CONSTIPATION Multi-Ingredient Liniment/Rub 1 applic 10/26/17 21:00 10/30/17 16:07 Calos Mccartney* TOPICAL Not Given TID MEET Pantoprazole Sodium 40 mg 10/22/17 09:00 10/30/17 09:35 Protonix Tab (Nf) PO 40 mg DAILY MEET Administration Senna 2 tab 10/21/17 12:38 10/27/17 20:08 Senokot Tab* PO 2 tab BEDTIME PRN Administration CONSTIPATION Tramadol HCl 50 mg 10/27/17 11:24 10/30/17 17:02 Ultram* PO 50 mg Q6H PRN Administration PAIN Vital Signs: Vital Signs Temp Pulse Resp BP Pulse Ox 98.0 F 72 18 137/60 100 10/30/17 16:17 10/30/17 16:17 10/30/17 17:05 10/30/17 16:17 10/30/17 18:38 Lab Results: Laboratory Results - last 24 hr 10/30/17 10/30/17 05:00 05:00 WBC 6.8 RBC 3.29 L Hgb 10.8 L Hct 32 L MCV 96 MCH 33 H MCHC 34 RDW 14 Plt Count 283 MPV 6.5 L Neut % (Auto) 53.5 Lymph % (Auto) 31.9 [place] % (Auto) 10.4 H Eos % (Auto) 3.2 Baso % (Auto) 1.0 Absolute Neuts (auto) 3.6 Absolute Lymphs (auto) 2.2 Absolute Monos (auto) 0.7 Absolute Eos (auto) 0.2 Absolute Basos (auto) 0.1 Absolute Nucleated RBC 0 Nucleated RBC % 0 Sodium 137 Potassium 4.1 Chloride 110 Carbon Dioxide 21 L Anion Gap 6 BUN 42 H Creatinine 1.52 H Est GFR ( Amer) 39.7 Est GFR (Non-Af Amer) 32.8 BUN/Creatinine Ratio 27.6 H Glucose 93 Calcium 9.4 Total Bilirubin 0.30 AST 16 ALT 18 Alkaline Phosphatase 58 Total Protein 5.9 L Albumin 3.4 Globulin 2.5 Albumin/Globulin Ratio 1.4 Exam: LUNGS: Clear to auscultation bilaterally HEART: regular rate and rhythym. I/ systolic murmur ABDOMEN: Soft, +BS, non-tender, non-distended EXTREMITIES: 2+ edema at ankles NEUROLOGIC: Muscle strength 4+/5 in RUE and RLE with normal sensation. Assessment/Plan: 1. Left CVA with right sided weakness: PT/OT. DAPT (ASA/Plavix) for 30 days, then ASA alone, per neurology 2. HTN: Chlorthalidone/Losartan. 3. Rheumatoid Arthritis: restart Enbrel this week. Added tramadol. Continue tylenol prn. Cannot use NSAIDs due to plavix and stroke. 4. DVT Prophylaxis: Heparin S/Q 5. Advanced Directives: She has MOLST. DNR 6. 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 8. UTI Ecoli sensitive to Cipro: Cipro Day #5 9. Chronic low back pain: Benadryl qhs. Added tramadol prn. can restart Enbrel. 10/30/17 19:54
[2017-10-30] MEDS: diPHENhydraMINE PO* 25 MG PO SCH (21:11)
[2017-10-31] MEDS: Heparin VIAL(*) 5000 UNITS/ML VIAL (FIVE THOUSAND) SUBCUT SCH ×4 (00:31→21:52)
[2017-10-31] MEDS: Analgesic BALM* 114 GM TOPICAL SCH ×3 (07:31→21:51)
[2017-10-31] MEDS: Docusate CAP* 100 MG PO SCH ×2 (07:31→21:51)
[2017-10-31] MEDS: Ciprofloxacin TAB* 250 MG PO SCH ×2 (07:31→21:51)
[2017-10-31] MEDS: Chlorthalidone TAB* 50 MG PO SCH (07:31)
[2017-10-31] MEDS: Aspirin EC TAB* 81 MG TAB.EC PO SCH (07:31)
[2017-10-31] MEDS: Losartan TAB* 25 MG PO SCH (07:31)
[2017-10-31] MEDS: Clopidogrel TAB* 75 MG PO SCH (07:31)
[2017-10-31] MEDS: Fluticasone NASAL SPRAY 50MCG* 16 gm SPRAY BTL BOTH NARES SCH (07:32)
[2017-10-31] MEDS: CMC:Pantoprazole TAB (NF) 40 MG TAB PO SCH (07:32)
[2017-10-31] MEDS: Acetaminophen TAB* 325 MG PO PRN (09:50)
[2017-10-31] MEDS: Atorvastatin* 40 MG TAB PO SCH (18:00)
--- NOTE | 2017-10-31 18:26 | PN ---
Progress Note Date of Service: 10/31/17 Note: NITZA ARNOLD was visited. Therapy notes read and reviewed. She feels like she is doing well. Able to walk and do stairs. Legs less swollen since hygroton resumed Current Medications: Active Medications Generic Name Dose Route Start Last Admin Trade Name Freq PRN Reason Stop Dose Admin Acetaminophen 650 mg 10/21/17 12:38 10/31/17 09:50 Tylenol Tab* PO 650 mg Q6H PRN Administration FEVER > 101 Aspirin 81 mg 10/22/17 09:00 10/31/17 07:31 Aspirin Ec Tab* PO 81 mg DAILY MEET Administration Atorvastatin Calcium 40 mg 10/22/17 17:00 10/31/17 18:00 Lipitor* PO 40 mg 1700 MEET Administration Chlorthalidone 25 mg 10/23/17 09:00 10/31/17 07:31 [place] Tab* PO 25 mg DAILY MEET Administration Ciprofloxacin 250 mg 10/26/17 13:30 10/31/17 07:31 Cipro Tab* PO 10/31/17 23:00 250 mg Q12HR MEET Administration Clopidogrel Bisulfate 75 mg 10/22/17 09:00 10/31/17 07:31 Plavix Tab* PO 75 mg DAILY MEET Administration Diphenhydramine HCl 25 mg 10/26/17 21:00 10/30/17 21:11 Benadryl Po* PO 25 mg BEDTIME MEET Administration Docusate Sodium 100 mg 10/21/17 21:00 10/31/17 07:31 Colace Cap* PO 100 mg BID MEET Administration Fluticasone Propionate 2 spray 10/22/17 09:00 10/31/17 07:32 Flonase Nasal [place] 50mcg* BOTH NARES 2 spray DAILY MEET Administration Heparin Sodium (Porcine) 5,000 units 10/21/17 14:00 10/31/17 14:12 Heparin Vial(*) SUBCUT 5,000 units Q8HR MEET Administration Losartan Potassium 100 mg 10/25/17 09:00 10/31/17 07:31 Cozaar Tab* PO 100 mg DAILY MEET Administration Magnesium Hydroxide 30 ml 10/21/17 12:38 Milk Of Magnesia Liq* PO Q6H PRN CONSTIPATION Multi-Ingredient Liniment/Rub 1 applic 10/26/17 21:00 10/31/17 14:12 Calos Mccartney* TOPICAL 1 applic TID MEET Administration Pantoprazole Sodium 40 mg 10/22/17 09:00 10/31/17 07:32 Protonix Tab (Nf) PO 40 mg DAILY MEET Administration Senna 2 tab 10/21/17 12:38 10/27/17 20:08 Senokot Tab* PO 2 tab BEDTIME PRN Administration CONSTIPATION Tramadol HCl 50 mg 10/27/17 11:24 10/30/17 17:02 Ultram* PO 50 mg Q6H PRN Administration PAIN Vital Signs: Vital Signs Temp Pulse Resp BP Pulse Ox 98.4 F 73 18 105/60 97 10/31/17 15:40 10/31/17 15:40 10/31/17 15:40 10/31/17 15:40 10/31/17 15:40 Exam: LUNGS: Clear to auscultation bilaterally HEART: regular rate and rhythym. I/ systolic murmur ABDOMEN: Soft, +BS, non-tender, non-distended EXTREMITIES: 2+ edema at ankles NEUROLOGIC: Muscle strength 4+/5 in RUE and RLE with normal sensation. Assessment/Plan: 1. Left CVA with right sided weakness: PT/OT. DAPT (ASA/Plavix) for 30 days, then ASA alone, per neurology 2. HTN: Chlorthalidone/Losartan. 3. Rheumatoid Arthritis: restart Enbrel this week. Added tramadol. Continue tylenol prn. Cannot use NSAIDs due to plavix and stroke. 4. DVT Prophylaxis: Heparin S/Q 5. Advanced Directives: She has MOLST. DNR 6. Mitral Regurgitation on echo: restarted Chlorthalidone 7. 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 8. UTI Ecoli sensitive to Cipro: Cipro Day #6. To finish today 9. Chronic low back pain: Benadryl qhs. Added tramadol prn. can restart Enbrel. 10/31/17 18:28
[2017-10-31] MEDS: diPHENhydraMINE PO* 25 MG PO SCH (21:51)
[2017-11-01] MEDS: Heparin VIAL(*) 5000 UNITS/ML VIAL (FIVE THOUSAND) SUBCUT SCH ×3 (05:22→21:46)
[2017-11-01] MEDS: Clopidogrel TAB* 75 MG PO SCH (08:43)
[2017-11-01] MEDS: Chlorthalidone TAB* 50 MG PO SCH (08:43)
[2017-11-01] MEDS: Aspirin EC TAB* 81 MG TAB.EC PO SCH (08:43)
[2017-11-01] MEDS: Fluticasone NASAL SPRAY 50MCG* 16 gm SPRAY BTL BOTH NARES SCH (08:44)
[2017-11-01] MEDS: Acetaminophen TAB* 325 MG PO PRN (08:44)
[2017-11-01] MEDS: CMC:Pantoprazole TAB (NF) 40 MG TAB PO SCH (08:44)
[2017-11-01] MEDS: Docusate CAP* 100 MG PO SCH ×2 (08:44→21:45)
[2017-11-01] MEDS: Losartan TAB* 25 MG PO SCH (08:44)
[2017-11-01] MEDS: Analgesic BALM* 114 GM TOPICAL SCH ×3 (08:50→21:45)
--- NOTE | 2017-11-01 16:44 | PN ---
Progress Note Date of Service: 11/01/17 Note: NITZA ARNOLD was visited. Therapy notes read and reviewed. She is doing okay overall. Will go home Saturday Current Medications: Active Medications Generic Name Dose Route Start Last Admin Trade Name Freq PRN Reason Stop Dose Admin Acetaminophen 650 mg 10/21/17 12:38 11/01/17 08:44 Tylenol Tab* PO 650 mg Q6H PRN Administration FEVER > 101 Aspirin 81 mg 10/22/17 09:00 11/01/17 08:43 Aspirin Ec Tab* PO 81 mg DAILY MEET Administration Atorvastatin Calcium 40 mg 10/22/17 17:00 10/31/17 18:00 Lipitor* PO 40 mg 1700 MEET Administration Chlorthalidone 25 mg 10/23/17 09:00 11/01/17 08:43 [place] Tab* PO 25 mg DAILY MEET Administration Clopidogrel Bisulfate 75 mg 10/22/17 09:00 11/01/17 08:43 Plavix Tab* PO 75 mg DAILY MEET Administration Diphenhydramine HCl 25 mg 10/26/17 21:00 10/31/17 21:51 Benadryl Po* PO 25 mg BEDTIME MEET Administration Docusate Sodium 100 mg 10/21/17 21:00 11/01/17 08:44 Colace Cap* PO 100 mg BID MEET Administration Etanercept 50 mg 11/03/17 09:00 Enbrel (Nf) SUBCUT Q7D MEET Fluticasone Propionate 2 spray 10/22/17 09:00 11/01/17 08:44 Flonase Nasal [place] 50mcg* BOTH NARES 2 spray DAILY MEET Administration Heparin Sodium (Porcine) 5,000 units 10/21/17 14:00 11/01/17 14:58 Heparin Vial(*) SUBCUT 5,000 units Q8HR MEET Administration Losartan Potassium 100 mg 10/25/17 09:00 11/01/17 08:44 Cozaar Tab* PO 100 mg DAILY MEET Administration Magnesium Hydroxide 30 ml 10/21/17 12:38 Milk Of Magnesia Liq* PO Q6H PRN CONSTIPATION Multi-Ingredient Liniment/Rub 1 applic 10/26/17 21:00 11/01/17 14:58 Calos Mccartney* TOPICAL 1 applic TID MEET Administration Pantoprazole Sodium 40 mg 10/22/17 09:00 11/01/17 08:44 Protonix Tab (Nf) PO 40 mg DAILY MEET Administration Senna 2 tab 10/21/17 12:38 10/27/17 20:08 Senokot Tab* PO 2 tab BEDTIME PRN Administration CONSTIPATION Tramadol HCl 50 mg 10/27/17 11:24 10/30/17 17:02 Ultram* PO 50 mg Q6H PRN Administration PAIN Vital Signs: Vital Signs Temp Pulse Resp BP Pulse Ox 98.0 F 68 16 121/73 99 11/01/17 15:47 11/01/17 15:47 11/01/17 15:47 11/01/17 15:47 11/01/17 15:47 Exam: LUNGS: Clear to auscultation bilaterally HEART: regular rate and rhythym. I/ systolic murmur ABDOMEN: Soft, +BS, non-tender, non-distended EXTREMITIES: 2+ edema at ankles NEUROLOGIC: Muscle strength 4+/5 in RUE and RLE with normal sensation. Assessment/Plan: 1. Left CVA with right sided weakness: PT/OT. DAPT (ASA/Plavix) for 30 days, then ASA alone, per neurology 2. HTN: Chlorthalidone/Losartan. 3. Rheumatoid Arthritis: restart Enbrel this week, if she can get it. Added tramadol. Continue tylenol prn. Cannot use NSAIDs due to plavix and stroke. 4. DVT Prophylaxis: Heparin S/Q 5. Advanced Directives: She has MOLST. DNR 6. Mitral Regurgitation on echo: restarted Chlorthalidone 7. 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 8. Chronic low back pain: Benadryl qhs. Added tramadol prn. can restart Enbrel. 11/01/17 16:44
[2017-11-01] MEDS: Atorvastatin* 40 MG TAB PO SCH (17:06)
[2017-11-01] MEDS: diPHENhydraMINE PO* 25 MG PO SCH (21:45)
[2017-11-02] MEDS: Heparin VIAL(*) 5000 UNITS/ML VIAL (FIVE THOUSAND) SUBCUT SCH ×3 (05:40→22:01)
[2017-11-02] MEDS: Acetaminophen TAB* 325 MG PO PRN (06:43)
[2017-11-02] MEDS: Losartan TAB* 25 MG PO SCH (08:42)
[2017-11-02] MEDS: Aspirin EC TAB* 81 MG TAB.EC PO SCH (08:43)
[2017-11-02] MEDS: Chlorthalidone TAB* 50 MG PO SCH (08:43)
[2017-11-02] MEDS: CMC:Pantoprazole TAB (NF) 40 MG TAB PO SCH (08:43)
[2017-11-02] MEDS: Docusate CAP* 100 MG PO SCH ×2 (08:43→20:06)
[2017-11-02] MEDS: Clopidogrel TAB* 75 MG PO SCH (08:43)
[2017-11-02] MEDS: traMADol TAB* 50 MG PO PRN ×2 (08:44→22:00)
[2017-11-02] MEDS: Analgesic BALM* 114 GM TOPICAL SCH ×3 (08:44→20:06)
[2017-11-02] MEDS: Fluticasone NASAL SPRAY 50MCG* 16 gm SPRAY BTL BOTH NARES SCH (08:48)
--- NOTE | 2017-11-02 15:00 | PN ---
Progress Note Date of Service: 11/02/17 Note: NITZA ARNOLD was visited. Therapy notes read and reviewed. She has no complaints. A little tired today Current Medications: Active Medications Generic Name Dose Route Start Last Admin Trade Name Freq PRN Reason Stop Dose Admin Acetaminophen 650 mg 10/21/17 12:38 11/02/17 06:43 Tylenol Tab* PO 650 mg Q6H PRN Administration FEVER > 101 Aspirin 81 mg 10/22/17 09:00 11/02/17 08:43 Aspirin Ec Tab* PO 81 mg DAILY MEET Administration Atorvastatin Calcium 40 mg 10/22/17 17:00 11/01/17 17:06 Lipitor* PO 40 mg 1700 MEET Administration Chlorthalidone 25 mg 10/23/17 09:00 11/02/17 08:43 [place] Tab* PO 25 mg DAILY MEET Administration Clopidogrel Bisulfate 75 mg 10/22/17 09:00 11/02/17 08:43 Plavix Tab* PO 75 mg DAILY MEET Administration Diphenhydramine HCl 25 mg 10/26/17 21:00 11/01/17 21:45 Benadryl Po* PO 25 mg BEDTIME MEET Administration Docusate Sodium 100 mg 10/21/17 21:00 11/02/17 08:43 Colace Cap* PO 100 mg BID MEET Administration Etanercept 50 mg 11/03/17 09:00 Enbrel (Nf) SUBCUT Q7D MEET Fluticasone Propionate 2 spray 10/22/17 09:00 11/02/17 08:48 Flonase Nasal [place] 50mcg* BOTH NARES 2 spray DAILY MEET Administration Heparin Sodium (Porcine) 5,000 units 10/21/17 14:00 11/02/17 13:48 Heparin Vial(*) SUBCUT 5,000 units Q8HR MEET Administration Losartan Potassium 100 mg 10/25/17 09:00 11/02/17 08:42 Cozaar Tab* PO 100 mg DAILY MEET Administration Magnesium Hydroxide 30 ml 10/21/17 12:38 Milk Of Magnesia Liq* PO Q6H PRN CONSTIPATION Multi-Ingredient Liniment/Rub 1 applic 10/26/17 21:00 11/02/17 13:48 Calos Mccartney* TOPICAL 1 applic TID MEET Administration Pantoprazole Sodium 40 mg 10/22/17 09:00 11/02/17 08:43 Protonix Tab (Nf) PO 40 mg DAILY MEET Administration Senna 2 tab 10/21/17 12:38 10/27/17 20:08 Senokot Tab* PO 2 tab BEDTIME PRN Administration CONSTIPATION Tramadol HCl 50 mg 10/27/17 11:24 11/02/17 08:44 Ultram* PO 50 mg Q6H PRN Administration PAIN Vital Signs: Vital Signs Temp Pulse Resp BP Pulse Ox 97.9 F 73 16 121/85 99 11/02/17 05:48 11/02/17 05:48 11/02/17 11:00 11/02/17 05:48 11/02/17 08:00 Exam: LUNGS: Clear to auscultation bilaterally HEART: regular rate and rhythym. I/ systolic murmur ABDOMEN: Soft, +BS, non-tender, non-distended EXTREMITIES: 2+ edema at ankles NEUROLOGIC: Muscle strength 4+/5 in RUE and RLE with normal sensation. Assessment/Plan: 1. Left CVA with right sided weakness: PT/OT. DAPT (ASA/Plavix) for 30 days, then ASA alone, per neurology 2. HTN: Chlorthalidone/Losartan. 3. Rheumatoid Arthritis: restart Enbrel this week, if she can get it. Added tramadol. Continue tylenol prn. Cannot use NSAIDs due to plavix and stroke. 4. DVT Prophylaxis: Heparin S/Q 5. Advanced Directives: She has MOLST. DNR 6. 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 8. Chronic low back pain: Benadryl qhs. Added tramadol prn. can restart Enbrel. 11/02/17 15:00
[2017-11-02] MEDS: Atorvastatin* 40 MG TAB PO SCH (16:40)
[2017-11-02] MEDS: diPHENhydraMINE PO* 25 MG PO SCH (23:17)
[2017-11-03] MEDS: Heparin VIAL(*) 5000 UNITS/ML VIAL (FIVE THOUSAND) SUBCUT SCH ×3 (06:59→21:52)
[2017-11-03] MEDS: Chlorthalidone TAB* 50 MG PO SCH (08:15)
[2017-11-03] MEDS: Docusate CAP* 100 MG PO SCH ×2 (08:17→21:50)
[2017-11-03] MEDS: Losartan TAB* 25 MG PO SCH (08:17)
[2017-11-03] MEDS: Analgesic BALM* 114 GM TOPICAL SCH ×3 (08:17→21:54)
[2017-11-03] MEDS: Clopidogrel TAB* 75 MG PO SCH (08:17)
[2017-11-03] MEDS: CMC:Pantoprazole TAB (NF) 40 MG TAB PO SCH (08:17)
[2017-11-03] MEDS: Aspirin EC TAB* 81 MG TAB.EC PO SCH (08:17)
[2017-11-03] MEDS: Fluticasone NASAL SPRAY 50MCG* 16 gm SPRAY BTL BOTH NARES SCH (08:17)
[2017-11-03] MEDS: Senna TAB PO PRN (08:26)
[2017-11-03] MEDS ORDERED: ETANERCEPT 50 MG/ML SUBCUT SCH (09:00)
[2017-11-03] MEDS: Atorvastatin* 40 MG TAB PO SCH (16:46)
--- NOTE | 2017-11-03 20:34 | PN ---
Progress Note Date of Service: 11/03/17 Note: NITZA ARNOLD was visited. Nursing notes read and reviewed. She did not have her Enbrel so will resume next week. Otherwise ok Current Medications: Active Medications Generic Name Dose Route Start Last Admin Trade Name Freq PRN Reason Stop Dose Admin Acetaminophen 650 mg 10/21/17 12:38 11/02/17 06:43 Tylenol Tab* PO 650 mg Q6H PRN Administration FEVER > 101 Aspirin 81 mg 10/22/17 09:00 11/03/17 08:17 Aspirin Ec Tab* PO 81 mg DAILY MEET Administration Atorvastatin Calcium 40 mg 10/22/17 17:00 11/03/17 16:46 Lipitor* PO 40 mg 1700 MEET Administration Chlorthalidone 25 mg 10/23/17 09:00 11/03/17 08:15 [place] Tab* PO 25 mg DAILY MEET Administration Clopidogrel Bisulfate 75 mg 10/22/17 09:00 11/03/17 08:17 Plavix Tab* PO 75 mg DAILY MEET Administration Diphenhydramine HCl 25 mg 10/26/17 21:00 11/02/17 23:17 Benadryl Po* PO 25 mg BEDTIME MEET Administration Docusate Sodium 100 mg 10/21/17 21:00 11/03/17 08:17 Colace Cap* PO 100 mg BID MEET Administration Etanercept 50 mg 11/03/17 09:00 11/03/17 08:38 Enbrel (Nf) SUBCUT Not Given Q7D MEET Fluticasone Propionate 2 spray 10/22/17 09:00 11/03/17 08:17 Flonase Nasal [place] 50mcg* BOTH NARES 2 spray DAILY MEET Administration Heparin Sodium (Porcine) 5,000 units 10/21/17 14:00 11/03/17 14:15 Heparin Vial(*) SUBCUT 5,000 units Q8HR MEET Administration Losartan Potassium 100 mg 10/25/17 09:00 11/03/17 08:17 Cozaar Tab* PO 100 mg DAILY MEET Administration Magnesium Hydroxide 30 ml 10/21/17 12:38 Milk Of Magnesia Liq* PO Q6H PRN CONSTIPATION Multi-Ingredient Liniment/Rub 1 applic 10/26/17 21:00 11/03/17 14:15 Calos Mccartney* TOPICAL 1 applic TID MEET Administration Pantoprazole Sodium 40 mg 10/22/17 09:00 11/03/17 08:17 Protonix Tab (Nf) PO 40 mg DAILY MEET Administration Senna 2 tab 10/21/17 12:38 11/03/17 08:26 Senokot Tab* PO 2 tab BEDTIME PRN Administration CONSTIPATION Tramadol HCl 50 mg 10/27/17 11:24 11/02/17 22:00 Ultram* PO 50 mg Q6H PRN Administration PAIN Vital Signs: Vital Signs Temp Pulse Resp BP Pulse Ox 97.9 F 82 20 116/72 95 11/03/17 17:50 11/03/17 17:50 11/03/17 17:50 11/03/17 17:50 11/03/17 17:50 Exam: LUNGS: Clear to auscultation bilaterally HEART: regular rate and rhythym. I/ systolic murmur ABDOMEN: Soft, +BS, non-tender, non-distended EXTREMITIES: 2+ edema at ankles NEUROLOGIC: Muscle strength 4+/5 in RUE and RLE with normal sensation. Assessment/Plan: 1. Left CVA with right sided weakness: PT/OT. DAPT (ASA/Plavix) for 30 days, then ASA alone, per neurology 2. HTN: Chlorthalidone/Losartan. 3. Rheumatoid Arthritis: couldn't get Enbrel this week, she will resume next week. Tramadol and tylenol prn. Cannot use NSAIDs due to plavix and stroke. 4. DVT Prophylaxis: Heparin S/Q 5. Advanced Directives: She has MOLST. DNR 6. 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 8. Chronic low back pain: Benadryl qhs. Added tramadol prn. can restart Enbrel. 11/03/17 20:34
[2017-11-03] MEDS: diPHENhydraMINE PO* 25 MG PO SCH (21:50)
[2017-11-03] MEDS: traMADol TAB* 50 MG PO PRN (23:10)
[2017-11-04] MEDS: Heparin VIAL(*) 5000 UNITS/ML VIAL (FIVE THOUSAND) SUBCUT SCH (06:44)
[2017-11-04 06:45] VITALS: BP 120/68
[2017-11-04] MEDS: Docusate CAP* 100 MG PO SCH (09:20)
[2017-11-04] MEDS: Losartan TAB* 25 MG PO SCH (09:20)
[2017-11-04] MEDS: Fluticasone NASAL SPRAY 50MCG* 16 gm SPRAY BTL BOTH NARES SCH (09:20)
[2017-11-04] MEDS: Clopidogrel TAB* 75 MG PO SCH (09:21)
[2017-11-04] MEDS: Chlorthalidone TAB* 50 MG PO SCH (09:21)
[2017-11-04] MEDS: CMC:Pantoprazole TAB (NF) 40 MG TAB PO SCH (09:21)
[2017-11-04] MEDS: Aspirin EC TAB* 81 MG TAB.EC PO SCH (09:21)
[2017-11-04] MEDS: Analgesic BALM* 114 GM TOPICAL SCH (09:24)
== END 2017-11-04 14:40 | disposition home health service (06) | DRG 57 ==
LOC: PMRU 12:04
PROVIDERS: ADMIT Physical Medicine & Rehabilitation; ATTEND Physical Medicine & Rehabilitation
PROC: F07Z5ZZ Bed Mobility Treatment (ICD-10-PCS; principal; 2017-10-21)
PROC: F07Z9ZZ Gait Training/Functional Ambulation Treatment (ICD-10-PCS; 2017-10-21)
PROC: F07Z8ZZ Transfer Training Treatment (ICD-10-PCS; 2017-10-21)
PROC: F07Z4ZZ Wheelchair Mobility Treatment (ICD-10-PCS; 2017-10-21)
PROC: F08Z0ZZ Bathing/Showering Techniques Treatment (ICD-10-PCS; 2017-10-21)
PROC: F08Z1ZZ Dressing Techniques Treatment (ICD-10-PCS; 2017-10-21)
PROC: F08Z3ZZ Feeding/Eating Treatment (ICD-10-PCS; 2017-10-21)
PROC: F06Z8ZZ Motor Speech Treatment (ICD-10-PCS; 2017-10-21)
DX: I69.351 Hemiplegia and hemiparesis following cerebral infarction affecting right dominant side (principal); N39.0 Urinary tract infection, site not specified; M06.9 Rheumatoid arthritis, unspecified; I10 Essential (primary) hypertension; Z66 Do not resuscitate; I34.0 Nonrheumatic mitral (valve) insufficiency; M54.5 Low back pain; B96.20 Unspecified Escherichia coli [E. coli] as the cause of diseases classified elsewhere; Z79.899 Other long term (current) drug therapy; Z88.0 Allergy status to penicillin; Z88.2 Allergy status to sulfonamides
CPT/HCPCS: 36415; 80053; 81003; 81015; 85025; 87077; 87086; 87186; A9270-GY; G0515-GO; J1644

== ENCOUNTER 2018-03-05 18:22 | Inpatient (IN) | payer MEDICARE, OTHER ==
[2018-03-05 19:10] LABS: ABS Basophils 0 10^3/ul (0-0.2); ABS Eosinophils 0 10^3/ul (0-0.6); ABS Lymphocytes 0.6 10^3/ul (1.0-4.8); ABS Monocytes 0.9 10^3/ul (0-0.8); ABS Neutrophils 13.4 10^3/ul (1.5-7.7); ABS Nucleated RBC 0 10^3/ul; Eosinophil % 0.2 %; Hematocrit 38 % (35-47); Hemoglobin 12.2 g/dl (12.0-16.0); Mean Corpuscular HGB Conc 32 g/dl (31-36); Mean Corpuscular Hemoglobin 30 pg (27-31); Mean Corpuscular Volume 94 fL (80-97); Mean Platelet Volume 6.8 fL (7.4-10.4); Nucleated Red Blood Cells % 0; Platelet Count 218 10^3/ul (150-450); Red Blood Count 4.07 10^6/ul (4.00-5.40); Red Cell Distribution Width 14 % (10.5-15)
--- NOTE | 2018-03-05 19:18 | ED ---
Syncope/Near Syncope - HPI Summary HPI Summary: The pt is an 82 y/o female presenting to [facility] s/p a syncope episode. Her friend who was visiting called the ambulance. She notes lightheadedness, LOC and diarrhea with loose stools but denies a head strike, cough, nausea, vomiting , hematuria, dysuria, CP, abd pain, and dyspnea. She denies any recent Abx use or a hx of C diff. Her PCP is Dr. Erik Ash MD. Home Medications Medication Instructions Recorded Confirmed Type Polyethylene Glycol 3350* 17 g PO BID PRN 10/17/17 01/03/18 History [Miralax*] Verapamil SR TAB* [Calan Sr TAB*] 240 mg PO Q24HR 10/17/17 01/03/18 History amLODIPine TAB* [Norvasc 5 mg TAB*] 5 mg PO DAILY 10/17/17 01/03/18 History Atorvastatin* [Lipitor 40 MG*] 40 mg PO 1700 tab 11/03/17 01/03/18 Rx Etanercept SYR (NF) [Enbrel (NF)] 50 mg SUBCUT Q7D ml 11/03/17 01/03/18 Rx Fluticasone NASAL SPRAY 50MCG* 2 spray BOTH NARES DAILY btl 11/03/17 01/03/18 Rx [Flonase NASAL SPRAY 50MCG*] Losartan TAB* [Cozaar TAB*] 100 mg PO DAILY tab 11/03/17 01/03/18 Rx Pantoprazole TAB (NF) [Protonix 40 mg PO DAILY tab 11/03/17 01/03/18 Rx TAB (NF)] Clopidogrel TAB* [Plavix TAB*] 75 mg PO DAILY tab 01/09/18 Rx - History Of Current Complaint Chief Complaint: EDSyncope Time Seen by Provider: 03/05/18 18:44 Hx Obtained From: Patient Onset/Duration: Sudden Onset, Resolved Context: Witnessed - Visiting friend Activity At Onset: At Rest Associated Head Trauma: No Aggravating Factor(s): Nothing Alleviating Factor(s): Nothing Associated Signs And Symptoms: Diarrhea, Lightheadedness, Other - LOC - Allergies/Home Medications Allergies/Adverse Reactions: Allergies Allergy/AdvReac Type Severity Reaction Status Date / Time Penicillins Allergy Intermediate Rash Verified 01/03/18 18:54 Sulfa (Sulfonamide Allergy Intermediate Rash Verified 01/03/18 18:54 Antibiotics) PMH/Surg Hx/FS Hx/Imm Hx Previously Healthy: No Endocrine/Hematology History: Denies: Hx Diabetes, Hx Thyroid Disease, Hx Anemia Cardiovascular History: Reports: Hx Hypertension, Hx Syncope Denies: Hx Pacemaker/ICD Respiratory History: Reports: Hx Sleep Apnea Denies: Hx Asthma, Hx Chronic Obstructive Pulmonary Disease (COPD) GI History: Reports: Hx Gastroesophageal Reflux Disease, Hx Hiatal Hernia, Other GI Disorders - chronic constipation Denies: Hx Jaundice, Hx Ulcer History: Denies: Hx Dialysis Musculoskeletal History: Reports: Hx Arthritis - osteoarthritis, Hx Back Problems Denies: Hx Osteoporosis Sensory History: Reports: Hx Contacts or Glasses Denies: Hx Eye Injury, Hx Legally Blind, Hx Vision Problem, Hx Hearing Aid, Hx Hearing Problem, Other Sensory Impairments Opthamlomology History: Reports: Hx Contacts or Glasses Denies: Hx Eye Injury, Hx Legally Blind, Hx Vision Problem, Other Sensory Impairments Neurological History: Reports: Hx Headaches - yesterday, Hx Transient Ischemic Attacks (TIA) Denies: Hx Dementia, Hx Seizures Psychiatric History: Denies: Hx Panic Disorder - Cancer History Cancer Type, Location and Year: None reported Hx Chemotherapy: No Hx Radiation Therapy: No - Surgical History Surgery Procedure, Year, and Place: hiatal hernia repair x2 2009, bilat. knee replacements.2015 aortic aneursym graft, tubal, tonsils - Immunization History Date of Influenza Vaccine: 11/2017 Infectious Disease History: No Infectious Disease History: Denies: Hx Clostridium Difficile, Hx Hepatitis, Hx Human Immunodeficiency Virus (HIV), Hx of Known/Suspected MRSA, Hx Shingles, Hx Tuberculosis - WAS EXPOSED A CHILD, History Other Infectious Disease, Traveled Outside the [place] in Last 30 Days - Family History Known Family History: Negative: Blood Disorder - Social History Occupation: Retired Lives: Alone Alcohol Use: None Alcohol Amount: WINE W/ MEALS Hx Substance Use: No Substance Use Type: Reports: None Hx Tobacco Use: No Smoking Status (MU): Never Smoked Tobacco Have You Smoked in the Last Year: No Review of Systems Constitutional: Negative - Head trauma , Other - Lightheadedness, LOC Negative: Chest Pain Respiratory: Negative - Dyspnea Negative: Cough Positive: Diarrhea. Negative: Abdominal Pain, Vomiting, Nausea Negative: dysuria, hematuria Positive: Syncope All Other Systems Reviewed And Are Negative: Yes Physical Exam - Summary Physical Exam Summary: Constitutional: Well-developed, Well-nourished, Alert. (-) Distressed Skin: Warm, Dry mucous membranes HENT: Normocephalic; Atraumatic Eyes: Conjunctiva normal Neck: Musculoskeletal ROM normal neck. (-) JVD, (-) Stridor, (-) Tracheal deviation Cardio: Rhythm regular, rate normal, Heart sounds normal; Intact distal pulses; The pedal pulses are 2+ and symmetric. Radial pulses are 2+ and symmetric. (-) Murmur Pulmonary/Chest wall: Effort normal. (-) Respiratory distress, (-) Wheezes, (-) Rales Abd: Soft, (-) epigastric tenderness, (-) Distension, (-) Guarding, (-) Rebound Musculoskeletal: (-) Edema Lymph: (-) Cervical adenopathy Neuro: Alert, Oriented x3 Psych: Mood and affect Normal GCS:15 Triage Information Reviewed: Yes Vital Signs On Initial Exam: Initial Vitals Temp Pulse Resp BP Pulse Ox 97.3 F 66 18 92/61 97 03/05/18 18:38 03/05/18 18:38 03/05/18 18:38 03/05/18 18:38 03/05/18 18:38 Vital Signs Reviewed: Yes Diagnostics - Vital Signs Vital Signs Temp Pulse Resp BP Pulse Ox 03/05/18 18:38 97.3 F 66 18 92/61 97 - Laboratory Lab Results: Lab Results 03/05/18 Range/Units 19:02 WBC 15.0 H (3.5-10.8) 10^3/ul RBC 4.07 (4.00-5.40) 10^6/ul Hgb 12.2 (12.0-16.0) g/dl Hct 38 (35-47) % MCV 94 (80-97) fL MCH 30 (27-31) pg MCHC 32 (31-36) g/dl RDW 14 (10.5-15) % Plt Count 218 (150-450) 10^3/ul MPV 6.8 L (7.4-10.4) fL Neut % (Auto) 89.7 % Lymph % (Auto) 4.0 % [place] % (Auto) 5.8 % Eos % (Auto) 0.2 % Baso % (Auto) 0.3 % Absolute Neuts (auto) 13.4 H (1.5-7.7) 10^3/ul Absolute Lymphs (auto) 0.6 L (1.0-4.8) 10^3/ul Absolute Monos (auto) 0.9 H (0-0.8) 10^3/ul Absolute Eos (auto) 0 (0-0.6) 10^3/ul Absolute Basos (auto) 0 (0-0.2) 10^3/ul Absolute Nucleated RBC 0 10^3/ul Nucleated RBC % 0 Result Diagrams: 03/05/18 19:02 03/05/18 19:02 Lab Statement: Any lab studies that have been ordered have been reviewed, and results considered in the medical decision making process. - Radiology CXR Radiology Interpretation Completed By: ED Physician Summary of Radiographic Findings: IMPRESSION: No acute disease - CT Brain CT CT Interpretation Completed By: Radiologist Summary of CT Findings: IMPRESSION: 1. No acute intracranial pathology. 2. Other chronic findings, as above. The ED physician reviewed this radiology report. - EKG 19:25 Cardiac Rate: NL - 62 bpm EKG Rhythm: Sinus Rhythm Summary of EKG Findings: No STEMI Course/Dx Course Of Treatment: An 82 year-old F presents to the ED with a CC of a syncope episode. She notes lightheadedness, LOC and diarrhea with loose stools but denies a head strike, cough, nausea, vomiting, hematuria, dysuria, CP, abd pain , and dyspnea. She denies any recent Abx use or a hx of C diff. A physical exam revealed dry mucous membranes. A CXR, Brain CT and EKG are all unremarkable. Labs reveal elevated lactic acid. In the ED course, the pt was given N.s 2000 ml IV which improved the symptoms. I discussed the care of the pt with Dr. Murdock who agreed to admit the pt. Patient will be admitted with a final Dx of diarrhea, hypovolemia and syncope. Pt is agreeable with this plan. Allergies noted. - Diagnoses Provider Diagnoses: Diarrhea, Hypovolemia, Syncope - Physician Notifications Discussed Care of Patient With: Collette Haney - Hospitalist Time Discussed With Above Provider: 20:30 Discharge - Sign-Out/Discharge Documenting (check all that apply): Patient Departure - Discharge Plan Condition: Stable Disposition: ADMITTED TO [facility] - Attestation Statements Document Initiated by Scribe: Yes Documenting Scribe: Megan Sharma Provider For Whom Scribe is Documenting (Include Credential): Dr. Jeramy Choi MD Scribe Attestation: Megan Mcgregor , scribed for Dr. Jeramy Choi MD on 03/05/18 at 2139. Status of Scribe Document: Ready
[2018-03-05 19:32] LABS: INR 0.96 (0.77-1.02)
[2018-03-05 19:44] LABS: EGFR Non-African American 32.1 (>60)
[2018-03-05] MEDS ORDERED: NS 0.9% 1000 ML* 2,000 ML IV ONE (19:50)
[2018-03-05] MEDS ORDERED: Potassium Chlor TAB* 20 MEQ TAB.ER PO ONE (20:57)
[2018-03-05] MEDS ORDERED: Vancomycin per Pharmacy* NOTE FOLLOW UP SCH (21:00)
[2018-03-05] MEDS ORDERED: NS 0.9% 1000 ML* 1,000 ML IV SCH (21:00)
[2018-03-05] MEDS ORDERED: Vancomycin(*) 1,250 MG in NS 0.9% 250 ML* 250 ML IVPB ONE (21:00)
[2018-03-05 22:07] LABS: Urine Appearance Cloudy; Urine Blood 1+ (Negative); Urine Color Yellow; Urine Ketones Negative (Negative); Urine Protein Negative (Negative); Urine Red Blood Cell 2+(6-10/hpf) (Absent); Urine Specific Gravity 1.009 (1.010-1.030); Urine Urobilinogen Negative (Negative); Urine White Blood Cell 3+(>20/hpf) (Absent)
[2018-03-05] MEDS: Heparin VIAL(*) 5000 UNITS/ML VIAL (FIVE THOUSAND) SUBCUT SCH (23:06)
[2018-03-05] MEDS: KCL 10 MEQ/50 ML IVPREMIX* 10 MEQ/50 ML BAG IV SCH (23:06)
[2018-03-06] MEDS: Cefepime 2 GM in Dextrose(*) 2 GM/50 ML BAG IV SCH ×2 (00:04→21:09)
[2018-03-06] MEDS ORDERED: diPHENhydraMINE PO* 25 MG PO ONE (00:25)
[2018-03-06] MEDS: Acetaminophen TAB* 325 MG PO PRN ×2 (00:45→13:25)
--- NOTE | 2018-03-06 00:53 | HP ---
CC: Dr. Nilsa Valencia * HISTORY AND PHYSICAL: DATE OF ADMISSION: 03/05/18 PRIMARY CARE PROVIDER: Dr. Nilsa Valencia. ATTENDING PHYSICIAN WHILE IN THE HOSPITAL: Dr. Collette Haney * (report dictated by Lul Rajan NP). CHIEF COMPLAINT: 1. Weakness. 2. Lightheadedness. HISTORY OF PRESENT ILLNESS: Mrs. Rodríguez is an 82-year-old female patient. She has a history of hypertension; GERD; hyperlipidemia; rheumatoid arthritis on Enbrel; allergic rhinitis; chronic pain; CVA with residual right-sided weakness ; and a history of osteoarthritis and a history of a AAA. She is coming into our ER today stating that over the last couple of weeks she has been feeling fatigued, not feeling well. Very vague. She says she has not been getting out because she just has been feeling week. She denied any fevers or chills. No weight loss. She says her appetite has been okay in terms of eating food, but in terms of p.o. fluid intake, she says that has been decreased. She is denying having any URI symptoms. There has been no reports of sore throat. She denied having any chest pain or any orthopnea. There has been no coughing. No shortness of breath. No abdominal pain or any nausea or vomiting or diarrhea. She states that she has not had a headache. She denied any neck stiffness or confusion; but the reason she came in today she was sitting on the edge of her bath tub. She has a table in her bathroom and she leaned forward on to it to try to see if the lightheadedness subsided, it did not. She was concerned because she was not feeling well. She thought may be she would faint. She did not faint, but she summoned her friend, who called 911. There has been no recent addition to medications with the exception of Plavix 2 months ago. She is denying again any fevers or chills. No sick contacts. She came into the ED today. She was noted to be hypotensive. Her lactic acid was elevated. She had elevated white count. Because of these findings, we were asked to evaluate for admission. PAST MEDICAL HISTORY: Significant for: 1. Hypertension. 2. GERD. 3. Hyperlipidemia. 4. Rheumatoid arthritis. 5. Allergic rhinitis. 6. Chronic pain. 7. CVA. 8. Osteoarthritis. 9. Paraesophageal hernia. 10. AAA. PAST SURGICAL HISTORY: 1. She has had bilateral knee replacement. 2. Foot surgery. 3. Tubal ligation. 4. Matilde fundoplication. 5. Paraesophageal hernia repair. 6. AAA repair. HOME MEDICATIONS: According to her recall and I did review the list with her includes: 1. Amlodipine 5 mg daily. 2. Verapamil 240 mg p.o. every 24 hours. 3. MiraLAX 17 g p.o. b.i.d. as needed. 4. Protonix 40 mg daily. 5. Cozaar 100 mg daily. 6. Flonase 2 sprays both nares daily. 7. Enbrel 50 mg subcu every 7 days. 8. Plavix 75 mg daily. 9. Lipitor 40 mg daily. ALLERGIES TO MEDICATIONS: Include PENICILLIN and SULFA. FAMILY HISTORY: She said both her parents of old age. SOCIAL HISTORY: She does not smoke. She does drink a glass of wine occasionally. Surrogate decision maker is her friend, Eve. REVIEW OF SYSTEMS: There is no documented fever. She denied having any significant weight change. There is no double vision. She denied having any ear discharge. There is no rhinorrhea, no sore throat, and no thyroid enlargement. She denied having any chest pain. There is no orthopnea. No nocturnal dyspnea. No abdominal pain. No nausea, no vomiting, no dysuria, no frequency, no seizure, no loss of consciousness, no pruritus, and no skin ulcerations. Review of 14 systems completed, all others negative. PHYSICAL EXAMINATION GENERAL: At this time, Mrs. Meliza Rodríguez is an 82-year-old female patient. She is sitting in the ED stretcher. She does not appear to be in any acute distress. She appears to be well-nourished and well-developed. VITAL SIGNS: Blood pressure now 96/59 with a pulse of 62, respirations 16, O2 sat 95%, temperature 97.3. HEENT: Head atraumatic and normocephalic. Eyes: EOMs are intact. Sclerae anicteric and not pale. Throat: Oral mucosa appears to be dry. No oropharyngeal erythema. NECK: Supple. LUNGS: Clear to auscultation. No wheezes, rales, or rhonchi. HEART: Sounds S1 and S2. She does have a grade 2 to 3 systolic murmur. ABDOMEN: Soft, flat, nontender. Bowel sounds present. EXTREMITIES: Pulses were 2+ throughout. She is moving all 4 extremities with 5 /5 strength. She does have a little bit of weakness to her right side. She had no peripheral edema. NEUROLOGIC: She is awake, alert, and oriented x3. Speech is clear, tongue midline. SKIN: Intact. LABORATORY DATA: Today revealing WBC of 15.0, RBC of 4.07, hemoglobin 12.2, hematocrit 38, platelet count 218, INR 0.96, PTT 29.8. Sodium 139, potassium 3.1, chloride 104, bicarb 25, BUN 26, creatinine 1.55, glucose 186. She also had a glucose of 164, lactic 4.2, calcium 9.8, total bili 0.7, AST 15, ALT 11, alk phos 52, troponin 0, albumin of 3.6. Brain CT showed no acute intracranial pathology. Other chronic findings as above. She had an EKG obtained today, which showed a normal sinus rhythm at a rate of 62. Flat T-waves in V1 and lead I. No ST elevation. Heart rate of 62. We looked at the previous EKG, it is similar, except V1 was inverted previously. She had a chest x-ray obtained today which when I reviewed it, I did not appreciate any acute infiltrates at this point. No signs of pulmonary edema. Old medical records reviewed. ASSESSMENT AND PLAN: Ms. Rodríguez is an 82-year-old female patient coming into the hospital today with complaints of feeling dizzy and lightheaded like she was going to faint, although she did not. She came in, was evaluated, and was found to have signs of sepsis. She will be admitted under inpatient status for: 1. Sepsis with septic shock. I say this because her lactic was noted to be 4.2. She was hypotensive. She did respond to fluids. She is improving. There is no obvious source. Because she is on Enbrel, I will put her on broad spectrum antibiotics in the form of vanco and cefepime. I will certainly get blood cultures, urine cultures, continue to follow her. We will check orthostatic blood pressures. We will repeat her lactic and will continue to monitor her closely. Again, it is reassuring that her blood pressure is responding to the IV fluids. I will check a flu swab as well. 2. Hypokalemia. I will replace. 3. Acute on chronic renal failure. Creatinine is normally 1.3, it is 1.5 today. I will send off a FENa, check bladder scan. We are going to get a UA as well and we will continue with hydration. I suspect this is prerenal. I will hold nephrotoxic agents. 4. Hypertension. In the setting of recent hypotension, we will hold her blood pressure meds. 5. Hyperlipidemia. Continue statin therapy. 6. Rheumatoid arthritis. In the setting of possible infection, hold medications. 7. Allergic rhinitis. Continue with her current medical regimen. 8. Chronic pain. P.r.n. Tylenol has been made available. 9. History of cerebrovascular accident, continue with secondary prevention. 10. Osteoarthritis. Follow with PCP. 11. Gastroesophageal reflux disease. Continue PPI therapy. 12. DVT prophylaxis. She is at high risk. She will be placed on heparin subcu. 13. Code status. She is a DNR. 14. Fluids, electrolytes, and nutrition. She can have a regular diet. TIME SPENT: Time spent on the admission 60 minutes, greater than half the time was spent icum-[id number] with the patient obtaining my history and physical and the other half the time spent going over the plan of care with the patient, implementing the plan of care. I discussed the plan of care with my attending Dr. Haney. She is in agreement. LUL RAJAN NP [id number]/[facility] #: [id number] EMELI
[2018-03-06] MEDS: KCL 10 MEQ/50 ML IVPREMIX* 10 MEQ/50 ML BAG IV SCH (01:37)
[2018-03-06] MEDS ORDERED: traMADol TAB* 50 MG PO ONE (05:14)
[2018-03-06 05:32] LABS: ABS Basophils 0 10^3/ul (0-0.2); ABS Eosinophils 0 10^3/ul (0-0.6); ABS Lymphocytes 1.1 10^3/ul (1.0-4.8); ABS Monocytes 0.8 10^3/ul (0-0.8); ABS Neutrophils 7.6 10^3/ul (1.5-7.7); ABS Nucleated RBC 0 10^3/ul; Eosinophil % 0.4 %; Hematocrit 33 % (35-47); Hemoglobin 11.2 g/dl (12.0-16.0); Lymphocyte % 11.5 %; Mean Corpuscular HGB Conc 33 g/dl (31-36); Mean Corpuscular Hemoglobin 31 pg (27-31); Mean Corpuscular Volume 93 fL (80-97); Mean Platelet Volume 6.9 fL (7.4-10.4); Nucleated Red Blood Cells % 0; Platelet Count 186 10^3/ul (150-450); Red Blood Count 3.61 10^6/ul (4.00-5.40); Red Cell Distribution Width 14 % (10.5-15); White Blood Count 9.6 10^3/ul (3.5-10.8)
[2018-03-06] MEDS: Heparin VIAL(*) 5000 UNITS/ML VIAL (FIVE THOUSAND) SUBCUT SCH ×3 (05:37→21:09)
[2018-03-06 05:38] LABS: INR 0.98 (0.77-1.02)
[2018-03-06 05:51] LABS: EGFR Non-African American 47.7 (>60)
[2018-03-06] MEDS: Clopidogrel TAB* 75 MG PO SCH (10:14)
[2018-03-06] MEDS: CMCS: Pantoprazole TAB (NF) 40 MG TAB PO SCH (10:14)
[2018-03-06] MEDS: Vancomycin(*) 500 MG in NS 0.9% 250 ML* 250 ML IVPB SCH ×2 (10:15→21:59)
[2018-03-06] MEDS: Atorvastatin* 40 MG TAB PO SCH (18:10)
[2018-03-07] MEDS ORDERED: Melatonin 3 MG TAB PO ONE (03:40)
[2018-03-07] MEDS: Acetaminophen TAB* 325 MG PO PRN (04:02)
[2018-03-07] MEDS: Heparin VIAL(*) 5000 UNITS/ML VIAL (FIVE THOUSAND) SUBCUT SCH ×3 (06:07→21:25)
[2018-03-07 06:32] LABS: ABS Basophils 0 10^3/ul (0-0.2); ABS Eosinophils 0.3 10^3/ul (0-0.6); ABS Monocytes 0.6 10^3/ul (0-0.8); ABS Nucleated RBC 0 10^3/ul; Eosinophil % 4.1 %; Hematocrit 33 % (35-47); Hemoglobin 11.4 g/dl (12.0-16.0); Lymphocyte % 14.6 %; Mean Corpuscular HGB Conc 34 g/dl (31-36); Mean Corpuscular Hemoglobin 31 pg (27-31); Mean Corpuscular Volume 92 fL (80-97); Mean Platelet Volume 6.9 fL (7.4-10.4); Nucleated Red Blood Cells % 0.1; Platelet Count 177 10^3/ul (150-450); Red Blood Count 3.64 10^6/ul (4.00-5.40); Red Cell Distribution Width 14 % (10.5-15); White Blood Count 6.9 10^3/ul (3.5-10.8)
[2018-03-07 06:44] LABS: EGFR Non-African American 45.7 (>60)
[2018-03-07] MEDS: CMCS: Pantoprazole TAB (NF) 40 MG TAB PO SCH (09:58)
[2018-03-07] MEDS: Clopidogrel TAB* 75 MG PO SCH (09:58)
[2018-03-07] MEDS ORDERED: Vancomycin Trough Check NOTE FOLLOW UP ONE (10:00)
[2018-03-07] MEDS: Ondansetron INJ* 2 MG/ML VIAL IV PRN (12:43)
[2018-03-07] MEDS: Atorvastatin* 40 MG TAB PO SCH (17:13)
[2018-03-07] MEDS: Cefepime 2 GM in Dextrose(*) 2 GM/50 ML BAG IV SCH (21:22)
[2018-03-07] MEDS: Melatonin 3 MG TAB PO SCH (21:25)
[2018-03-08] MEDS ORDERED: Melatonin 3 MG TAB PO PRN (00:39)
[2018-03-08] MEDS ORDERED: diPHENhydraMINE PO* 25 MG PO ONE ×2 (00:57→01:00)
[2018-03-08] MEDS: Acetaminophen TAB* 325 MG PO PRN ×2 (01:17→05:12)
[2018-03-08] MEDS: Ondansetron INJ* 2 MG/ML VIAL IV PRN (01:24)
[2018-03-08] MEDS: Temazepam CAP* 15 MG PO PRN ×2 (01:25→21:23)
[2018-03-08] MEDS: Heparin VIAL(*) 5000 UNITS/ML VIAL (FIVE THOUSAND) SUBCUT SCH ×3 (05:13→21:24)
[2018-03-08 08:11] LABS: ABS Basophils 0 10^3/ul (0-0.2); ABS Eosinophils 0.3 10^3/ul (0-0.6); ABS Lymphocytes 1.4 10^3/ul (1.0-4.8); ABS Monocytes 0.8 10^3/ul (0-0.8); ABS Neutrophils 4.1 10^3/ul (1.5-7.7); ABS Nucleated RBC 0 10^3/ul; Eosinophil % 4.7 %; Hematocrit 36 % (35-47); Lymphocyte % 20.9 %; Mean Corpuscular HGB Conc 34 g/dl (31-36); Mean Corpuscular Hemoglobin 31 pg (27-31); Mean Corpuscular Volume 93 fL (80-97); Mean Platelet Volume 6.9 fL (7.4-10.4); Nucleated Red Blood Cells % 0.1; Platelet Count 210 10^3/ul (150-450); Red Blood Count 3.84 10^6/ul (4.00-5.40); Red Cell Distribution Width 13 % (10.5-15); White Blood Count 6.5 10^3/ul (3.5-10.8)
[2018-03-08] MEDS: Clopidogrel TAB* 75 MG PO SCH (08:43)
[2018-03-08] MEDS: CMCS: Pantoprazole TAB (NF) 40 MG TAB PO SCH (08:43)
[2018-03-08] MEDS: amLODIPine TAB* 5 MG PO SCH (14:58)
[2018-03-08] MEDS: Atorvastatin* 40 MG TAB PO SCH (17:34)
[2018-03-08] MEDS: Melatonin 3 MG TAB PO SCH (21:23)
[2018-03-08] MEDS: Cephalexin CAP* 500 MG PO SCH (21:23)
[2018-03-09] MEDS: Heparin VIAL(*) 5000 UNITS/ML VIAL (FIVE THOUSAND) SUBCUT SCH ×2 (06:00→14:09)
[2018-03-09] MEDS: CMCS: Pantoprazole TAB (NF) 40 MG TAB PO SCH (09:52)
[2018-03-09] MEDS: Cephalexin CAP* 500 MG PO SCH (09:52)
[2018-03-09] MEDS: amLODIPine TAB* 5 MG PO SCH (09:52)
[2018-03-09] MEDS: Clopidogrel TAB* 75 MG PO SCH (09:52)
--- NOTE | 2018-03-09 10:57 | PN ---
Subjective - Subjective Reason for Note: Discharge Note History: Discharge summary (brief)luis eduardo I have learned about her presentation to the hospital and her hospital course from Meliza Rodríguez, Dr. Nilsa Valencia and the EHR. She is feeling better today and is ready to go home. She has managed to dress herself and is capable of all her ADLs. She has no fever/sweats. There has been no further hypotension or pre-syncope. Active Problems: Active Problems Near syncope (Acute) Sepsis (Acute) Urinary tract infection (Acute) CVA (cerebral vascular accident) (Chronic) I63.9 Essential hypertension (Chronic) I10 GERD (gastroesophageal reflux disease) (Chronic) K21.9 History of AAA (abdominal aortic aneurysm) repair (Chronic) Z98.890 History of total bilateral knee replacement (Chronic) Z96.653 Hypercholesterolemia (Chronic) E78.00 Left handed (Chronic) [id number] Rheumatoid arthritis (Chronic) M06.9 Current Medications: Current Medications Acetaminophen (Tylenol Tab*) 650 mg PO Q4H PRN PRN Reason: FEVER/PAIN Last Admin: 03/08/18 05:12 Dose: 650 mg Amlodipine Besylate (Norvasc Tab*) 5 mg PO DAILY [facility] Last Admin: 03/09/18 09:52 Dose: 5 mg Atorvastatin Calcium (Lipitor*) 40 mg PO 1700 [facility] Last Admin: 03/08/18 17:34 Dose: 40 mg Cephalexin HCl (Keflex Cap*) 500 mg PO BID [facility] Last Admin: 03/09/18 09:52 Dose: 500 mg Clopidogrel Bisulfate (Plavix Tab*) 75 mg PO DAILY [facility] Last Admin: 03/09/18 09:52 Dose: 75 mg Heparin Sodium (Porcine) (Heparin Vial(*)) 5,000 units SUBCUT Q8HR [facility] Last Admin: 03/09/18 06:00 Dose: 5,000 units Melatonin (Melatonin) 3 mg PO BEDTIME [facility]; Protocol Last Admin: 03/08/18 21:23 Dose: 3 mg Ondansetron HCl (Zofran Inj*) 4 mg IV Q6H PRN PRN Reason: NAUSEA Last Admin: 03/08/18 01:24 Dose: 4 mg Pantoprazole Sodium (Protonix Tab (Nf)) 40 mg PO DAILY [facility] Last Admin: 03/09/18 09:52 Dose: 40 mg Temazepam (Restoril Cap*) 15 mg PO BEDTIME PRN PRN Reason: SLEEP Last Admin: 03/08/18 21:23 Dose: 15 mg - Review of Systems Pulmonary: Negative: Cough, Sputum, Respiratory Distress, Shortness of Breath Cardiology: Negative: Chest Pain, Palpitations, Swelling of Ankles, Faintness, Syncope, Proximal NocturnalDyspnea, Orthopnoea Gastroenterology: Positive: Constipation Negative: Abdominal Pain, Nausea, Vomiting Genital - Urinary: Negative: Dysuria, Hematuria Home Medications: Home Medications Medication Instructions Recorded Confirmed Type Polyethylene Glycol 3350* 17 g PO BID PRN 10/17/17 03/05/18 History [Miralax*] amLODIPine TAB* [Norvasc 5 mg TAB*] 5 mg PO DAILY 10/17/17 03/05/18 History Atorvastatin* [Lipitor 40 MG*] 40 mg PO 1700 tab 11/03/17 03/05/18 Rx Etanercept SYR (NF) [Enbrel (NF)] 50 mg SUBCUT Q7D ml 11/03/17 03/05/18 Rx Fluticasone NASAL SPRAY 50MCG* 2 spray BOTH NARES DAILY btl 11/03/17 03/05/18 Rx [Flonase NASAL SPRAY 50MCG*] Losartan TAB* [Cozaar TAB*] 100 mg PO DAILY tab 11/03/17 03/05/18 Rx Pantoprazole TAB (NF) [Protonix 40 mg PO DAILY tab 11/03/17 03/05/18 Rx TAB (NF)] Clopidogrel TAB* [Plavix TAB*] 75 mg PO DAILY tab 01/09/18 03/05/18 Rx Acetaminophen TAB* [Tylenol TAB*] 650 mg PO Q4H PRN tab 03/08/18 Rx Cephalexin CAP* [Keflex CAP*] 500 mg PO BID 5 Days #10 cap 03/08/18 Rx Verapamil SR TAB* [Calan Sr TAB*] 240 mg PO DAILY #0 03/08/18 03/05/18 Rx Allergies: Allergies Allergy/AdvReac Type Severity Reaction Status Date / Time Penicillins Allergy Intermediate Rash Verified 01/03/18 18:54 Sulfa (Sulfonamide Allergy Intermediate Rash Verified 01/03/18 18:54 Antibiotics) Objective - Vital Signs Vital Signs: Vital Signs 12/15/18 12/15/18 12/15/18 11:14 15:13 18:53 Temperature 97.3 F 97.6 F 98.2 F Pulse Rate 63 67 87 Respiratory 18 16 16 Rate Blood Pressure 115/68 120/72 106/62 (mmHg) O2 Sat by Pulse 96 98 98 Oximetry 03/08/18 03/08/18 03/09/18 20:00 22:26 03:08 Temperature 97.5 F 97.6 F Pulse Rate 71 67 Respiratory 18 18 16 Rate Blood Pressure 95/54 167/104 (mmHg) O2 Sat by Pulse 97 97 100 Oximetry 03/09/18 03/09/18 03:28 07:48 Temperature 97.5 F Pulse Rate 65 Respiratory 18 Rate Blood Pressure 148/94 121/77 (mmHg) O2 Sat by Pulse 100 Oximetry - Intake and Output Intake and Output: Intake & Output 03/06/18 03/07/18 03/08/18 03/09/18 11:59 11:59 11:59 11:59 Intake Total 1779 1587 1140 1200 Output Total 340 200 0 Balance 1439 1387 1140 1200 Weight 147 lb 7.828 oz Intake: IV Fluids 964 44 NS (0.9%) 964 44 IVPB 365 583 ABX - CEFEPIME 60 64 ABX - VANCOMYCIN 280 519 KCL in Sterile Water 25 Oral 863 782 2423 1200 Output: Urine 340 200 0 Other: Estimated Void Large Large Date of Last Bowel 03/07/18 unknown Movement # Bowel Movements 1 0 Estimated Stool Amount Small Large # Voids 1 1 0 ADLs: Meal Record Start: 03/05/18 21: 06 Freq: ,,18 Status: Complete Protocol: Created 03/05/18 21:06 System (Rec: 03/05/18 21:06 System ICU-C14) Document 03/06/18 09:00 [id number] (Rec: 03/06/18 10:41 [id number] ICU-C16) ADLs: Meal Record Start: 03/07/18 19: 37 Freq: DAILY@0900,1400,1800 Status: Active Protocol: Created 03/07/18 19:37 [id number] (Rec: 03/07/18 19:37 [id number] MED-C11) Document 03/07/18 19:38 [id number] (Rec: 03/07/18 19:38 [id number] MED-C11) Document 03/08/18 09:00 [id number] (Rec: 03/08/18 09:46 [id number] MED-C11) Document 03/08/18 13:12 [id number] (Rec: 03/08/18 13:12 [id number] MED-C09) Document 03/08/18 18:00 [id number] (Rec: 03/08/18 18:21 [id number] MED-C11) Intake and Output Start: 03/05/18 18: 42 Freq: Status: Active Protocol: Created 03/05/18 18:42 System (Rec: 03/05/18 18:42 System ED-C18) Intake and Output Start: 03/05/18 21: 06 Freq: DAILY@0600,1400,2200 Status: Active Protocol: Created 03/05/18 21:06 System (Rec: 03/05/18 21:06 System ICU-C14) Document 03/05/18 21:40 [id number] (Rec: 03/05/18 22:18 [id number] ICU-M33) Document 03/05/18 22:17 [id number] (Rec: 03/05/18 22:17 [id number] ICU-M33) Document 03/05/18 23:00 [id number] (Rec: 03/05/18 23:28 [id number] ICU-C15) Document 03/05/18 23:00 [id number] (Rec: 03/06/18 00:39 [id number] ICU-C15) Document 03/06/18 05:00 [id number] (Rec: 03/06/18 05:48 [id number] ICU-C15) Document 03/06/18 08:00 [id number] (Rec: 03/06/18 08:17 [id number] ICU-C16) Document 03/06/18 12:00 [id number] (Rec: 03/06/18 13:48 [id number] ICU-C15) Document 03/06/18 15:10 [id number] (Rec: 03/06/18 15:10 [id number] ICU-C18) Document 03/06/18 17:39 [id number] (Rec: 03/06/18 17:39 [id number] ICU-C15) Document 03/07/18 11:21 [id number] (Rec: 03/07/18 11:21 [id number] ICU-C10) Document 03/07/18 13:30 [id number] (Rec: 12/14/18 14:34 [id number] ICU-C10) Document 03/07/18 22:06 [id number] (Rec: 03/07/18 22:07 [id number] MED-C11) Document 03/08/18 00:00 [id number] (Rec: 03/08/18 05:15 [id number] MED-C11) Document 03/08/18 05:15 [id number] (Rec: 03/08/18 05:16 [id number] MED-C11) Document 03/08/18 14:00 [id number] (Rec: 03/08/18 14:28 [id number] MED-C05) Document 03/08/18 20:21 [id number] (Rec: 03/08/18 20:23 [id number] MED-C07) Document 03/09/18 06:00 [id number] (Rec: 03/09/18 06:06 [id number] MEDL-C02) - Physical Exam General Physical Exam Comment: Sitting on the side of the bed, fully clothed and looking well. General: No Cyanosis, No Anemia, No Jaundice, No Clubbing Lungs and Chest: Yes: Chest Expansion Full, Chest Expansion Symetrica, Percussion Note Resonant, Vessicular Breath Sounds. No: Crackles, Wheezes Heart Rate and Rhythm: Regular JVP: Not Elevated Additional Cardiovascular: Yes: Normal Heart Sounds, Heart Murmur - 2/6 apical murmur. No: Pedal Edema Abdominal Exam: Yes: Soft. No: Distention, Abdominal Tenderness - Neuro Orientation: A/O x3 Psychiatric: Normal Speech: Normal Assessment - Problem List Assessment: Patient Problems Near syncope (Acute) Sepsis (Acute) Urinary tract infection (Acute) CVA (cerebral vascular accident) (Chronic) Essential hypertension (Chronic) GERD (gastroesophageal reflux disease) (Chronic) History of AAA (abdominal aortic aneurysm) repair (Chronic) History of total bilateral knee replacement (Chronic) Hypercholesterolemia (Chronic) Left handed (Chronic) Rheumatoid arthritis (Chronic) Plan: Near syncope (Acute)Sepsis (Acute) Urinary tract infection (Acute) This has all resolved. Her BP is normal. Essential hypertension (Chronic) She took amlodipine without adverse effects. She will restart losartan, but wait on the verapamil until her outpatient appt. CVA (cerebral vascular accident) (Chronic) secondary diagnosis GERD (gastroesophageal reflux disease) (Chronic) History of AAA (abdominal aortic aneurysm) repair (Chronic) secondary diagnosis History of total bilateral knee replacement (Chronic) secondary diagnosis Hypercholesterolemia (Chronic) secondary diagnosis Left handed (Chronic) Rheumatoid arthritis (Chronic) secondary diagnosis She is ready for discharge and will follow up with Dr. Nilsa Valencia as an outpatient this week.
[2018-03-09 12:43] VITALS: BP 128/70
[2018-03-09] MEDS: Acetaminophen TAB* 325 MG PO PRN (14:07)
== END 2018-03-09 13:50 | disposition home health service (06) | DRG 871 ==
LOC: ED 18:22 → ICU 20:47 → MED 03-07 19:27
PROVIDERS: ADMIT Internal Medicine; ATTEND Internal Medicine Geriatric Medicine
DX: A40.3 Sepsis due to Streptococcus pneumoniae (principal); R65.21 Severe sepsis with septic shock; N17.9 Acute kidney failure, unspecified; N39.0 Urinary tract infection, site not specified; B96.1 Klebsiella pneumoniae [K. pneumoniae] as the cause of diseases classified elsewhere; M06.9 Rheumatoid arthritis, unspecified; E87.6 Hypokalemia; E78.5 Hyperlipidemia, unspecified; J30.9 Allergic rhinitis, unspecified; G89.29 Other chronic pain; I10 Essential (primary) hypertension; M19.90 Unspecified osteoarthritis, unspecified site; K21.9 Gastro-esophageal reflux disease without esophagitis; Z96.653 Presence of artificial knee joint, bilateral; Z86.73 Personal history of transient ischemic attack (TIA), and cerebral infarction without residual deficits; Z79.02 Long term (current) use of antithrombotics/antiplatelets; Z79.899 Other long term (current) drug therapy; Z88.0 Allergy status to penicillin; Z88.2 Allergy status to sulfonamides
CPT/HCPCS: 36415; 70450; 71045; 74176; 80048; 80053; 81003; 81015; 82570; 83605; 83735; 84100; 84145; 84300; 84484; 85025; 85610; 85652; 85730; 86140; 87040; 87077; 87086; 87186; 87641; 87899; 93005; 99285; A9270-GY; G8978-GP-CI; G8979-GP-CI; G8980-GP-CI; J0692; J1644; J2405; J3370; J3480

== ENCOUNTER 2018-08-18 12:39 | Inpatient (IN) | payer MEDICARE, OTHER ==
[2018-08-18] MEDS ORDERED: NS 0.9% 1000 ML** 1,000 ML IV ONE ×2 (13:06→15:35)
--- NOTE | 2018-08-18 13:10 | ED ---
Neurological HPI - HPI Summary HPI Summary: The patient is an 83 y/o F presenting to [facility] with a chief complaint of increased weakness in the LUE and BLE this morning after fall at 1000. She states that over the past couple of weeks, she has noticed her LUE has been weaker than normal, and today she was getting out of bed when she fell because her BLE are weak. She denies CP, SOB, and headache. She lives at home by herself. - History of Current Complaint Chief Complaint: EDWeakness Stated Complaint: WEAK/LETHARGIC PER EMS Time Seen by Provider: 08/18/18 12:59 Hx Obtained From: Patient Onset/Duration: Sudden Onset, Started hours ago, Still Present Onset Severity: Moderate Current Severity: Moderate Neurological Deficit Location: LUE, RLE, LLE Pain Intensity: 0 Pain Scale Used: 0-10 Numeric Character: Weak - in LUE and BLE Aggravating: Nothing Alleviating: Nothing Associated Signs and Symptoms: Negative: Headache - Additional Pertinent History Primary Care Physician: [id number] - Allergy/Home Medications Allergies/Adverse Reactions: Allergies Allergy/AdvReac Type Severity Reaction Status Date / Time Penicillins Allergy Intermediate Rash Verified 01/03/18 18:54 Sulfa (Sulfonamide Allergy Intermediate Rash Verified 01/03/18 18:54 Antibiotics) Home Medications: Home Medications Chlorthalidone TAB* 25 mg PO DAILY 08/18/18 [History Confirmed 08/18/18] PMH/Surg Hx/FS Hx/Imm Hx Endocrine/Hematology History: Denies: Hx Diabetes, Hx Thyroid Disease, Hx Anemia Cardiovascular History: Reports: Hx Hypercholesterolemia, Hx Hypertension, Hx Syncope Denies: Hx Pacemaker/ICD Respiratory History: Reports: Hx Pneumonia, Hx Seasonal Allergies Denies: Hx Asthma, Hx Chronic Obstructive Pulmonary Disease (COPD), Hx Sleep Apnea GI History: Reports: Hx Gastroesophageal Reflux Disease, Hx Hiatal Hernia, Other GI Disorders - chronic constipation Denies: Hx Jaundice, Hx Ulcer History: Denies: Hx Dialysis Musculoskeletal History: Reports: Hx Arthritis - osteoarthritis, Hx Back Problems - 3 vertebrae fractures Denies: Hx Osteoporosis Sensory History: Reports: Hx Contacts or Glasses Denies: Hx Eye Injury, Hx Legally Blind, Hx Vision Problem, Hx Hearing Aid, Hx Hearing Problem, Other Sensory Impairments Opthamlomology History: Reports: Hx Contacts or Glasses Denies: Hx Eye Injury, Hx Legally Blind, Hx Vision Problem, Other Sensory Impairments Neurological History: Reports: Hx Headaches - yesterday, Hx Transient Ischemic Attacks (TIA) Denies: Hx Dementia, Hx Seizures Psychiatric History: Denies: Hx Panic Disorder - Cancer History Cancer Type, Location and Year: None reported Hx Chemotherapy: No Hx Radiation Therapy: No - Surgical History Surgery Procedure, Year, and Place: hiatal hernia repair x2 2009, bilat. knee replacements.2015 aortic aneursym graft, tubal, tonsils Hx Anesthesia Reactions: No - Immunization History Date of Influenza Vaccine: 11/2017 Infectious Disease History: No Infectious Disease History: Denies: Hx Clostridium Difficile, Hx Hepatitis, Hx Human Immunodeficiency Virus (HIV), Hx of Known/Suspected MRSA, Hx Shingles, Hx Tuberculosis - WAS EXPOSED A CHILD, History Other Infectious Disease, Traveled Outside the [place] in Last 30 Days - Family History Known Family History: Negative: Blood Disorder - Social History Alcohol Use: Rare Alcohol Amount: WINE W/ MEALS Hx Substance Use: No Substance Use Type: Reports: None Hx Tobacco Use: No Smoking Status (MU): Never Smoked Tobacco Do You Chew or Dip Tobacco: No Have You Chewed or Dipped Tobacco in the LAST YEAR: No Have You Smoked in the Last Year: No Review of Systems Negative: Chest Pain Negative: Shortness Of Breath Positive: Other - pain in left shoulder Positive: Weakness - in LUE and BLE. Negative: Headache All Other Systems Reviewed And Are Negative: Yes Physical Exam - Summary Physical Exam Summary: VITAL SIGNS: Reviewed. GENERAL: Patient is a well-developed and nourished elderly female who is lying comfortable in the stretcher. Patient is not in any acute respiratory distress. HEAD AND FACE: No signs of trauma. No ecchymosis, hematomas or skull depressions. No sinus tenderness. EYES: PERRLA, EOMI x 2, No injected conjunctiva, no nystagmus. No photophobia. EARS: Hearing grossly intact. Ear canals and tympanic membranes are within normal limits. MOUTH: Dry oral mucosa but oropharynx is otherwise within normal limits. NECK: Supple, trachea is midline, no adenopathy, no JVD, no carotid bruit, no c- spine tenderness, neck with full ROM. No meningeal signs, no Kernig's or brudzinskis signs. CHEST: Symmetric, no tenderness at palpation LUNGS: Clear to auscultation bilaterally. No wheezing or crackles. CVS: Regular rate and rhythm, S1 and S2 present, no murmurs or gallops appreciated. ABDOMEN: Soft, non-tender. No signs of distention. No rebound no guarding, and no masses palpated. Bowel sounds are normal. EXTREMITIES: FROM in all major joints, no edema, no cyanosis or clubbing. Pain in the left shoulder. NEURO: Alert and slightly confused. No acute neurological deficits. Speech is normal and follows commands. SKIN: Dry and warm. Increased turgor of skin. GCS: 15 Triage Information Reviewed: Yes Vital Signs On Initial Exam: Initial Vitals Temp Pulse Resp BP Pulse Ox 99.1 F 79 12 170/108 97 08/18/18 12:44 08/18/18 12:44 08/18/18 12:44 08/18/18 12:44 08/18/18 12:44 Vital Signs Reviewed: Yes - Carlisle Coma Scale Best Eye Response: 4 - Spontaneous Best Motor Response: 6 - Obeys Commands Best Verbal Response: 5 - Oriented Coma Scale Total: 15 Diagnostics - Vital Signs Vital Signs Temp Pulse Resp BP Pulse Ox 08/18/18 12:44 99.1 F 79 12 170/108 97 - Laboratory Result Diagrams: 08/18/18 14:45 08/18/18 14:45 Lab Statement: Any lab studies that have been ordered have been reviewed, and results considered in the medical decision making process. - Radiology CXR Radiology Interpretation Completed By: Radiologist Summary of Radiographic Findings: Stable tortuous ectatic aorta. COPD No active pulmonary disease. ED physician has reviewed this report. L Shoulder XR Radiology Interpretation Completed By: Radiologist Summary of Radiographic Findings: 1. Probable nondisplaced oblique fracture of the proximal humerus. 2. Osteopenia. 3. Osteoarthritis. 4. Findings consistent with chronic rotator cuff injury. ED physician has reviewed this report. - CT Brain CT CT Interpretation Completed By: Radiologist Summary of CT Findings: No acute intracranial pathology. Diffuse involutional change with chronic small vessel ischemic changes. ED physician has reviewed this report. ED physician has reviewed this report. LUE CT CT Interpretation Completed By: Radiologist Summary of CT Findings: 1. Osteopenia. 2. Osteoarthritis. 3. The proximal humeral fracture noted on plain radiograph is not evident on the examination. ED physician has reviewed this report. - EKG 1308 Cardiac Rate: NL - 72 BPM EKG Rhythm: Sinus Rhythm EKG Comparison: No Significant Change - Similar to previous EKG taken on 2017 Summary of EKG Findings: No ST elevations Re-Evaluation - Re-Evaluation First Eval Re-Evaluation Time: 16:20 Comment: I spoke with the patient concerning admission to the hospital. Course/Dx - Course Assessment/Plan: The patient is an 83 y/o F presenting to [facility] with a chief complaint of increased weakness in the LUE and BLE this morning after fall at 1000. She states that over the past couple of weeks, she has noticed her LUE has been weaker than normal, and today she was getting out of bed when she fell because her BLE are weak. She denies CP, SOB, and headache. She lives at home by herself. Chest x-ray impression: A stable tortuous ectasia aorta. COPD. No active pulmonary disease. Head CT impression: No acute interconnected pathology. Diffuse involutional changes with chronic small vessel ischemia. X- ray of the left shoulder impression: Probably nondisplaced oblique fracture of the proximal humerus. Osteopenia. Osteoarthritis. Findings consistent with chronic rotator cuff injury. Blood test results without any significant abnormality except for WBCs of 11.7, anion gap of 13, creatinine of 1.09, glucose of 129, troponin of 0.09, CRP of 60, and BNR of 355. In the ED course the patient was given IV fluids. I discussed my physical exam, findings and test results with Dr. Nevarez from the hospitalist services and he agrees to admit patient to his services. Patient is hemodynamically stable alert and oriented x 3. - Diagnoses Provider Diagnoses: Dehydration, Elevated troponin, Weakness, Humeral fracture - Physician Notifications Discussed Care Of Patient With: Luis Armando Nevarez - hospitalist Time Discussed With Above Provider: 16:10 Instructed by Provider To: Other - I discussed the patient's case with Dr. Nevarez , and he accepts the patient for admission at this time. Discharge - Sign-Out/Discharge Documenting (check all that apply): Patient Departure - Patient is accepted for admission to [facility] for further care. Patient Received Moderate/Deep Sedation with Procedure: No - Discharge Plan Condition: Stable Disposition: ADMITTED TO [facility] - Billing Disposition and Condition Condition: STABLE Disposition: Admitted to [facility] - Attestation Statements Document Initiated by Scribe: Yes Documenting Scribe: Deya Kennedy Provider For Whom Mikeibmelissa is Documenting (Include Credential): Dr. Omero Tabares MD Scribe Attestation: I, Deya Kennedy, scribed for Dr. Omero Tabares MD on 08/18/18 at 1805. Scribe Documentation Reviewed: Yes Provider Attestation: The documentation as recorded by the Deya yang accurately reflects the service I personally performed and the decisions made by me, Dr. Omero Tabares MD Status of Scribe Document: Ready
[2018-08-18 14:59] LABS: ABS Lymphocytes 0.5 10^3/ul (1.0-4.8); ABS Monocytes 0.9 10^3/ul (0-0.8); ABS Neutrophils 10.3 10^3/ul (1.5-7.7); Hematocrit 44 % (35-47); Lymphocyte % 4.3 %; Mean Corpuscular HGB Conc 32 g/dL (31-36); Mean Corpuscular Hemoglobin 29 pg (27-31); Mean Corpuscular Volume 91 fL (80-97); Mean Platelet Volume 7.4 fL (7.4-10.4); Platelet Count 212 10^3/uL (150-450); Red Blood Count 4.77 10^6 /uL (3.70-4.87); Red Cell Distribution Width 14 % (10.5-15); White Blood Count 11.7 10^3/uL (3.5-10.8)
[2018-08-18 15:12] LABS: ALT 11 U/L (7-52); AST 21 U/L (13-39); Albumin 3.8 g/dL (3.2-5.2); Albumin/Globulin Ratio 1.2 (1-3); Alkaline Phosphatase 71 U/L (34-104); Anion Gap 13 mmol/L (2-11); Blood Urea Nitrogen 24 mg/dL (6-24); C Reactive Protein 64.23 mg/L (<8.01); CO2 Carbon Dioxide 24 mmol/L (22-32); Calcium 10.1 mg/dL (8.6-10.3); Chloride 104 mmol/L (101-111); Creatine Kinase 208 U/L (10-223); EGFR African American 58.1 (>60); EGFR Non-African American 48.1 (>60); Globulin 3.2 g/dL (2-4); Glucose 129 mg/dL (70-100); Potassium 4.2 mmol/L (3.5-5.0); Sodium 141 mmol/L (135-145)
[2018-08-18 15:15] LABS: Troponin I 0.09 ng/mL (<0.04)
[2018-08-18 15:32] LABS: Urine Appearance Clear; Urine Bacteria 3+ (Absent); Urine Bilirubin Negative (Negative); Urine Blood 2+ (Negative); Urine Color Yellow; Urine Glucose Negative (Negative); Urine Ketones 1+ (Negative); Urine Nitrite Negative (Negative); Urine Protein 1+(30 mg/dL) (Negative); Urine Red Blood Cell 1+(3-5/hpf) (Absent); Urine Specific Gravity 1.018 (1.010-1.030); Urine Squamous Epithelial Cell Present (Absent); Urine Urobilinogen Negative (Negative); Urine White Blood Cell 1+(6-10/hpf) (Absent)
[2018-08-18 15:48] LABS: TSH (Thyroid Stimulating Horm) 0.69 mcIU/mL (0.34-5.60)
[2018-08-18] MEDS ORDERED: Labetalol IV* 5 MG/ML 20 ML VIAL IV PUSH ONE (16:11)
[2018-08-18 17:13] LABS: Urine Appearance Cloudy; Urine Bacteria 3+ (Absent); Urine Bilirubin Negative (Negative); Urine Blood 2+ (Negative); Urine Color Yellow; Urine Glucose Negative (Negative); Urine Ketones 1+ (Negative); Urine Nitrite Negative (Negative); Urine Protein 1+(30 mg/dL) (Negative); Urine Red Blood Cell Trace(0-2/hpf) (Absent); Urine Specific Gravity 1.017 (1.010-1.030); Urine Squamous Epithelial Cell Present (Absent); Urine Urobilinogen Negative (Negative); Urine White Blood Cell Trace(0-5/hpf) (Absent)
--- NOTE | 2018-08-18 17:41 | HP ---
History of Present Illness - History of Present Illness Reason for Visit: fall History of Present Illness: Patient is 83 year old woman with rheumatoid arthritis, who has been feeling progressively weak for possibly 2-3 weeks. Today she was trying to get out of bed, but her legs gave way and she fell to floor, hitting her head on the wall and injuring her LT shoulder. She was unable to get up on her own. Her neighbors check on her frequently and they came and called an ambulance. She denies chest pain, palpitations, dyspnea. Her neighbors state she has been eating less and less for 2 weeks, and not taking her medications. A home health aide fills medications boxes once a day, and they are recently untouched. Denies dysuria, frequency. She has no know heart disease, has had AAA repair in past. Last cardiac testing was an echo in 01/09, showed moderate aortic stenosis, preserved wall motion. PCP: Dr. Valencia - Past Medical History Cardiac: HTN, Hyperlipidemia, Aortic stenosis - moderate, Other - PVD, AAA repaired CARE CENTER MANAGER: CVA Gastrointestinal: GERD Musculoskeletal: Osteoarthritis, Other - chronic pain Rheumatologic: Rheumatoid arthritis ENT: Allergic rhinitis Endocrine: Osteoporosis - Past Surgical History Past Surgical History: Other - Matilde fundoplication, AAA repair, Total Knee Replacement - biilat, Tubal Ligation - Past Family History Family History: Other - father of TB, mother of "old age" and all siblings have passed, denies pattern of cancer, CAD. 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 Alcohol: Occassional - 2-3 drinks/week Drugs: None Lives: Alone - son lives in [place], Levi Rodríguez, , flying here tomorrow, she should not gabrielle discharged until after he arrives Domestic Violence: Negative Review of Systems - Measurements Intake and Output: Intake and Output Last 24 Hours 08/16/18 08/17/18 08/18/18 08/19/18 06:59 06:59 06:59 06:59 Weight 63.503 kg - Review of Systems Constitutional Symptoms: Positive: Weakness, Fatigue Dermatology: Positive: Normal HEENT: Positive: Normal Eyes: Positive: Normal Thyroid: Positive: Normal Negative: Weight Loss Pulmonary: Positive: Normal Negative: Wheezing, COPD Cardiology: Negative: Chest Pain Gastroenterology: Positive: Normal Negative: Abdominal Pain, Nausea, Vomiting, Diarrhea Genital - Urinary: Negative: Dysuria, Polyuria Genitourinay - Female: Positive: Menopause Musculoskeletal: Positive: Joint Pain, Joint Stiffness, Joint Deformities Neurology: Positive: Hx of Stroke\\TIA, Other - tremor Psychiatry: Positive: Normal Allergic/Immunologic: Positive: Hx Seasonal Objective Active Medications: Home Meds: Acetaminophen (Tylenol Tab*) 650 mg PO Q4H PRN PRN Reason: FEVER/PAIN Amlodipine Besylate (Norvasc Tab*) 5 mg PO DAILY MEET Atorvastatin Calcium (Lipitor*) 40 mg PO 1700 MEET Clopidogrel Bisulfate (Plavix Tab*) 75 mg PO DAILY MEET Losartan Potassium (Cozaar Tab*) 100 mg PO QPM MEET Pantoprazole Sodium (Protonix Tab*) 40 mg PO DAILY MEET Verapamil HCl (Calan Sr Tab*) 240 mg PO DAILY MEET Chlorthalidone TAB* 25 mg PO DAILY 08/18/18 Vital Signs - 8 hr 08/18/18 08/18/18 08/18/18 13:00 13:19 13:47 Temperature Pulse Rate 76 68 Respiratory 18 21 17 Rate Blood Pressure 201/154 210/130 (mmHg) O2 Sat by Pulse 96 96 Oximetry 08/18/18 08/18/18 08/18/18 14:00 14:17 14:48 Temperature Pulse Rate 75 77 77 Respiratory 21 20 18 Rate Blood Pressure 207/137 180/120 (mmHg) O2 Sat by Pulse 99 97 98 Oximetry 08/18/18 08/18/18 08/18/18 15:48 16:00 16:30 Temperature Pulse Rate 75 81 Respiratory 26 14 19 Rate Blood Pressure 210/119 180/115 (mmHg) O2 Sat by Pulse 96 96 Oximetry 08/18/18 08/18/18 17:00 17:04 Temperature Pulse Rate Respiratory 16 23 Rate Blood Pressure 183/111 (mmHg) O2 Sat by Pulse Oximetry Oxygen Devices in Use Now: None Appearance: elderly, alert Eyes: No Scleral Icterus Ears/Nose/Mouth/Throat: NL Teeth, Lips, Gums, Clear Oropharnyx Neck: NL Appearance and Movements; NL JVP, Trachea Midline Respiratory: Symmetrical Chest Expansion and Respiratory Effort, Clear to Auscultation Cardiovascular: RRR, No Edema, - - 2/6 systolic murmur Abdominal: NL Sounds; No Tenderness; No Distention, No Hepatosplenomegaly Lymphatic: No Cervical Adenopathy Extremities: No Edema Skin: No Rash or Ulcers Neurological: Alert and Oriented x 3, - - motor 4-/5, bilat LE, cannot lift either leg fully off bed, DTR absent bilat LE, tremuous UE bilat Lines/Tubes/Other Access: Clean, Dry and Intact Peripheral IV Nutrition: Taking PO's Result Diagrams: 08/18/18 14:45 08/18/18 14:45 Additional Lab and Data: Laboratory Tests 08/18/18 08/18/18 08/18/18 14:45 14:45 14:45 APTT 27.7 Glucose 129 H Lactic Acid 1.6 Magnesium 2.0 AST 21 ALT 11 Troponin I 0.09 H* C-Reactive Protein 64.23 H B-Natriuretic Peptide TSH 0.69 08/18/18 14:45 APTT Glucose Lactic Acid Magnesium AST ALT Troponin I C-Reactive Protein B-Natriuretic Peptide 355 H TSH Diagnostic Imaging: Head CT negative CXR: no infiltrates, ectatic aorta LT shoulder: possible oblique proximal humeral fracture EKG Data: NSR, normal axis, early transition, no ischemia Assess/Plan/Problems-Billing Assessment: 83 year old with failure to thrive, fall, possible LT humeral fracture, elevated troponin - Patient Problems (1) Troponin I above reference range Current Visit: Yes Status: Acute Priority: High Code(s): R74.8 - ABNORMAL LEVELS OF OTHER SERUM ENZYMES SNOMED Code(s): 404928728 Comment: -Patient has no symptoms referrable to chest, anginal equivalents, other than weakness. -Will observe on telemetry, follow serial troponins. -Will consider stress test, cardiology consult based on results (2) Urinary tract infection Current Visit: No Status: Acute Priority: Medium Comment: -Overall cause of weakness unclear, but infection likely, with elevated WBC, CRP, and UA appears to show infection vs contamination. -Will start IV ceftriaxone, follow blood and urine cultures. (3) Rheumatoid arthritis Current Visit: No Status: Chronic Priority: Medium Code(s): M06.9 - RHEUMATOID ARTHRITIS, UNSPECIFIED SNOMED Code(s): 56256764 Comment: -Immunosuppressed if taking Enbrel. -Will hold this in setting of possible infection -Patient admitted with sepsis in 03/11. (4) Humeral fracture Current Visit: Yes Status: Acute Priority: Medium Code(s): S42.309A - UNSP FRACTURE OF SHAFT OF HUMERUS, UNSP ARM, INIT SNOMED Code(s): 58006362 Comment: -Left humerus suspected fracture, on plain films -CT on LT UE is pending -Will place in sling, control pain, consult with PT. (5) Essential hypertension Current Visit: No Status: Chronic Priority: Medium Code(s): I10 - ESSENTIAL (PRIMARY) HYPERTENSION SNOMED Code(s): 64869714 Comment: -BP severely high in ER, improved post IV labetalol -May have pain, anxiety, or non-adherence to medications -Will restart home meds, except for diuretic which could contribute to falls (6) DVT prophylaxis Current Visit: Yes Status: Acute Priority: Low Code(s): Z29.9 - ENCOUNTER FOR PROPHYLACTIC MEASURES, UNSPECIFIED SNOMED Code(s): 130048114 Comment: -High risk, will start lovenox SC (7) DNR (do not resuscitate) discussion Current Visit: Yes Status: Acute Priority: Medium Code(s): Z71.89 - OTHER SPECIFIED COUNSELING SNOMED Code(s): 551249561 Comment: -Discussed code status with patient, she confirmed DNR/DNI, states MOLST done with Dr. Valencia. -New MOLST filled out reflecting wishes. Status and Disposition: inpatient
[2018-08-18] MEDS ORDERED: cefTRIAXone(*) 1 GM in NS 0.9% 50 ML* 50 ML IVPB SCH (18:00)
[2018-08-18] MEDS ORDERED: Morphine 4 MG/ML VIAL (1 ml) 4 MG/ML VIAL IV PRN (18:01)
[2018-08-18] MEDS: amLODIPine TAB* 5 MG PO SCH (19:30)
[2018-08-18] MEDS: Losartan TAB* 25 MG PO SCH (19:30)
[2018-08-18] MEDS: Enoxaparin(*) 40 MG/0.4 ML SYR SUBCUT SCH (19:34)
[2018-08-18] MEDS: cefTRIAXone(*) 1 GM in NS 0.9% 50 ML* 50 ML IVPB SCH (22:38)
[2018-08-19 06:00] LABS: Hematocrit 35 % (35-47); Hemoglobin 11.5 g/dL (12.0-16.0); Mean Corpuscular HGB Conc 33 g/dL (31-36); Mean Corpuscular Hemoglobin 30 pg (27-31); Mean Corpuscular Volume 91 fL (80-97); Mean Platelet Volume 7.7 fL (7.4-10.4); Platelet Count 202 10^3/uL (150-450); Red Blood Count 3.85 10^6 /uL (3.70-4.87); Red Cell Distribution Width 14 % (10.5-15); White Blood Count 12.9 10^3/uL (3.5-10.8)
[2018-08-19 06:17] LABS: Anion Gap 7 mmol/L (2-11); BUN/Creatinine Ratio 26.7 (8-20); Blood Urea Nitrogen 31 mg/dL (6-24); CO2 Carbon Dioxide 25 mmol/L (22-32); Calcium 9.1 mg/dL (8.6-10.3); Chloride 108 mmol/L (101-111); EGFR African American 54.1 (>60); EGFR Non-African American 44.7 (>60); Glucose 113 mg/dL (70-100); Potassium 3.6 mmol/L (3.5-5.0); Sodium 140 mmol/L (135-145)
[2018-08-19 06:24] LABS: Troponin I 0.09 ng/mL (<0.04)
[2018-08-19 07:38] LABS: ABS Basophils 0.1 10^3/ul (0-0.2); ABS Lymphocytes 0.8 10^3/ul (1.0-4.8); ABS Monocytes 1.4 10^3/ul (0-0.8); ABS Neutrophils 10.6 10^3/ul (1.5-7.7); Lymphocyte % 6.3 %
[2018-08-19] MEDS: Pantoprazole TAB * 40 MG TAB PO SCH (10:16)
[2018-08-19] MEDS: Clopidogrel TAB* 75 MG PO SCH (10:16)
[2018-08-19] MEDS: amLODIPine TAB* 5 MG PO SCH (10:17)
[2018-08-19] MEDS: Verapamil SR TAB* 240 MG PO SCH (10:17)
--- NOTE | 2018-08-19 18:10 | PN ---
Subjective Date of Service: 08/19/18 Interval History: Patient feels a bit stronger today. She denies dysuria. She ate dinner, but wants more protein. She has irritation around katerina-area. Denies chest pain. Son coming from [facility]. Family History: Unchanged from Admission Social History: Unchanged from Admission Past Medical History: Unchanged from Admission Objective Active Medications: Acetaminophen (Tylenol Tab*) 650 mg PO Q4H PRN PRN Reason: FEVER/PAIN Amlodipine Besylate (Norvasc Tab*) 5 mg PO DAILY [facility] Last Admin: 08/19/18 10:17 Dose: 5 mg Atorvastatin Calcium (Lipitor*) 40 mg PO 1700 [facility] Clopidogrel Bisulfate (Plavix Tab*) 75 mg PO DAILY [facility] Last Admin: 08/19/18 10:16 Dose: 75 mg Docusate Sodium (Colace Cap*) 100 mg PO BID PRN PRN Reason: CONSTIPATION Enoxaparin Sodium (Lovenox(*)) 40 mg SUBCUT Q24H [facility] Last Admin: 08/18/18 19:34 Dose: 40 mg Ceftriaxone Sodium 1 gm/ (Sodium Chloride) 50 mls @ 200 mls/hr IVPB Q24H [facility] Last Admin: 08/18/18 22:38 Dose: 200 mls/hr Sodium Chloride (Ns 0.9% 1000 Ml) 1,000 mls @ 100 mls/hr IV PER RATE [facility] Losartan Potassium (Cozaar Tab*) 50 mg PO QPM [facility] Morphine Sulfate (Morphine 4 Mg/Ml Vial (1 Ml)) 3 mg IV Q3H PRN PRN Reason: PAIN - MODERATE Pantoprazole Sodium (Protonix Tab*) 40 mg PO DAILY [facility] Last Admin: 08/19/18 10:16 Dose: 40 mg Senna (Senokot Tab*) 1 tab PO DAILY PRN PRN Reason: CONSTIPATION Verapamil HCl (Calan Sr Tab*) 240 mg PO DAILY [facility] Last Admin: 08/19/18 10:17 Dose: 240 mg Vital Signs - 8 hr 08/19/18 08/19/18 08/19/18 11:07 11:30 16:11 Temperature 37.9 C 36.3 C 36.3 C Pulse Rate 118 78 78 Respiratory 20 20 22 Rate Blood Pressure 148/75 99/71 105/65 (mmHg) O2 Sat by Pulse 95 99 96 Oximetry Oxygen Devices in Use Now: None Appearance: alert, no distress Eyes: No Scleral Icterus Ears/Nose/Mouth/Throat: Clear Oropharnyx Neck: NL Appearance and Movements; NL JVP Respiratory: Symmetrical Chest Expansion and Respiratory Effort, Clear to Auscultation Cardiovascular: RRR, No Edema, - - 2/6 systolic murmur Abdominal: NL Sounds; No Tenderness; No Distention Neurological: Alert and Oriented x 3 Lines/Tubes/Other Access: Clean, Dry and Intact Peripheral IV, Clean, Dry and Intact PICC Line Nutrition: Taking PO's Result Diagrams: 08/19/18 05:27 08/19/18 05:27 Additional Lab and Data: Laboratory Tests 08/18/18 08/18/18 08/19/18 17:52 20:54 05:27 Troponin I 0.10 H* 0.10 H* 0.09 H* Microbiology and Other Data: Microbiology 08/18/18 15:05 Urine Culture - Preliminary Urine Klebsiella Pneumoniae Diagnostic Imaging: CT LT shoulder: NO FRACTURE Assess/Plan/Problems-Billing Assessment: 83 year old with failure to thrive, fall, back and shoulder pain, elevated troponin - Patient Problems (1) Troponin I above reference range Current Visit: Yes Status: Acute Priority: High Code(s): R74.8 - ABNORMAL LEVELS OF OTHER SERUM ENZYMES SNOMED Code(s): 491880089 Comment: -Patient has no symptoms referrable to chest, anginal equivalents, other than weakness. -Troponins have peaked, indeterminant. I do not feel stress test will add anything to treatment (2) Urinary tract infection Current Visit: No Status: Acute Priority: Medium Comment: -UTI, culture growing klebsiella -Continue ceftriaxone, follow blood and urine cultures. (3) Rheumatoid arthritis Current Visit: No Status: Chronic Priority: Medium Code(s): M06.9 - RHEUMATOID ARTHRITIS, UNSPECIFIED SNOMED Code(s): 77151520 Comment: -Immunosuppressed , Enbrel on hold (4) Humeral fracture Current Visit: Yes Status: Acute Priority: Medium Code(s): S42.309A - UNSP FRACTURE OF SHAFT OF HUMERUS, UNSP ARM, INIT SNOMED Code(s): 00613347 Comment: -Left humerus had suspected fracture on plain films -CT did not confirm fracture -Also had fall, consult with PT. (5) Essential hypertension Current Visit: No Status: Chronic Priority: Medium Code(s): I10 - ESSENTIAL (PRIMARY) HYPERTENSION SNOMED Code(s): 27140196 Comment: -BP was severely high in ER, now too low after restarting medications -Reduced dose of Cozaar, holding diuretics -Starting IV fluid again due to elevated creatinine (6) DVT prophylaxis Current Visit: Yes Status: Acute Priority: Low Code(s): Z29.9 - ENCOUNTER FOR PROPHYLACTIC MEASURES, UNSPECIFIED SNOMED Code(s): 282212576 Comment: -lovenox SC (7) DNR (do not resuscitate) discussion Current Visit: Yes Status: Acute Priority: Medium Code(s): Z71.89 - OTHER SPECIFIED COUNSELING SNOMED Code(s): 604856803 Comment: -Code status appropriate Status and Disposition: inpatient, may switch to Dr. Valencia in AM
[2018-08-19] MEDS: Enoxaparin(*) 40 MG/0.4 ML SYR SUBCUT SCH (18:37)
[2018-08-19] MEDS: Senna TAB PO PRN (18:38)
[2018-08-19] MEDS: Losartan TAB* 25 MG PO SCH ×2 (18:38→18:46)
[2018-08-19] MEDS: Docusate CAP* 100 MG PO PRN (18:39)
[2018-08-19] MEDS: Atorvastatin* 40 MG TAB PO SCH (18:39)
[2018-08-19] MEDS: NS 0.9% 1000 ML** 1,000 ML IV SCH (18:53)
[2018-08-19] MEDS: cefTRIAXone(*) 1 GM in NS 0.9% 50 ML* 50 ML IVPB SCH (21:31)
[2018-08-19] MEDS: Acetaminophen TAB* 325 MG PO PRN (23:31)
[2018-08-20] MEDS: NS 0.9% 1000 ML** 1,000 ML IV SCH ×2 (05:10→15:01)
[2018-08-20 06:55] LABS: ABS Eosinophils 0.1 10^3/ul (0-0.6); ABS Lymphocytes 1.4 10^3/ul (1.0-4.8); ABS Monocytes 0.9 10^3/ul (0-0.8); ABS Neutrophils 7.2 10^3/ul (1.5-7.7); Eosinophil % 0.7 %; Hematocrit 31 % (35-47); Hemoglobin 10.3 g/dL (12.0-16.0); Lymphocyte % 14.5 %; Mean Corpuscular HGB Conc 34 g/dL (31-36); Mean Corpuscular Hemoglobin 30 pg (27-31); Mean Corpuscular Volume 90 fL (80-97); Mean Platelet Volume 7.5 fL (7.4-10.4); Platelet Count 167 10^3/uL (150-450); Red Blood Count 3.41 10^6 /uL (3.70-4.87); Red Cell Distribution Width 14 % (10.5-15); White Blood Count 9.6 10^3/uL (3.5-10.8)
[2018-08-20 07:03] LABS: BUN/Creatinine Ratio 31.9 (8-20); Calcium 8.6 mg/dL (8.6-10.3); EGFR African American 55.8 (>60); EGFR Non-African American 46.1 (>60)
[2018-08-20] MEDS: Clopidogrel TAB* 75 MG PO SCH (08:28)
[2018-08-20] MEDS: Pantoprazole TAB * 40 MG TAB PO SCH (08:29)
[2018-08-20] MEDS: Verapamil SR TAB* 240 MG PO SCH (08:29)
[2018-08-20] MEDS: amLODIPine TAB* 5 MG PO SCH (08:29)
[2018-08-20] MEDS: Acetaminophen TAB* 325 MG PO PRN ×3 (09:04→21:11)
[2018-08-20] MEDS: Atorvastatin* 40 MG TAB PO SCH (16:46)
[2018-08-20] MEDS: Losartan TAB* 25 MG PO SCH (16:46)
[2018-08-20] MEDS: Enoxaparin(*) 40 MG/0.4 ML SYR SUBCUT SCH (16:47)
[2018-08-20] MEDS ORDERED: Potassium Chloride* LIQUID 20 MEQ/15 ML UDC PO ONE (18:14)
[2018-08-20] MEDS: cefTRIAXone(*) 1 GM in NS 0.9% 50 ML* 50 ML IVPB SCH (20:59)
[2018-08-20] MEDS: Docusate CAP* 100 MG PO PRN (21:11)
[2018-08-20] MEDS: Senna TAB PO PRN (21:11)
[2018-08-21] MEDS: NS 0.9% 1000 ML** 1,000 ML IV SCH ×2 (01:30→16:31)
[2018-08-21 05:35] LABS: ABS Eosinophils 0.2 10^3/ul (0-0.6); ABS Lymphocytes 1.3 10^3/ul (1.0-4.8); ABS Monocytes 0.6 10^3/ul (0-0.8); ABS Neutrophils 5.5 10^3/ul (1.5-7.7); Eosinophil % 2.3 %; Hematocrit 32 % (35-47); Hemoglobin 10.4 g/dL (12.0-16.0); Mean Corpuscular HGB Conc 32 g/dL (31-36); Mean Corpuscular Hemoglobin 30 pg (27-31); Mean Corpuscular Volume 92 fL (80-97); Mean Platelet Volume 7.6 fL (7.4-10.4); Nucleated Red Blood Cells % 0.3; Platelet Count 178 10^3/uL (150-450); Red Blood Count 3.49 10^6 /uL (3.70-4.87); Red Cell Distribution Width 14 % (10.5-15); White Blood Count 7.6 10^3/uL (3.5-10.8)
[2018-08-21 05:52] LABS: C Reactive Protein 13.94 mg/L (<8.01); Calcium 8.2 mg/dL (8.6-10.3); EGFR African American 64.2 (>60); EGFR Non-African American 53.1 (>60); Potassium 3.9 mmol/L (3.5-5.0)
[2018-08-21] MEDS: amLODIPine TAB* 5 MG PO SCH (09:16)
[2018-08-21] MEDS: Clopidogrel TAB* 75 MG PO SCH (09:16)
[2018-08-21] MEDS: Verapamil SR TAB* 240 MG PO SCH (09:17)
[2018-08-21] MEDS: Pantoprazole TAB * 40 MG TAB PO SCH (09:17)
[2018-08-21] MEDS: Atorvastatin* 40 MG TAB PO SCH (16:29)
[2018-08-21] MEDS: Enoxaparin(*) 40 MG/0.4 ML SYR SUBCUT SCH (16:29)
[2018-08-21] MEDS: Losartan TAB* 25 MG PO SCH (16:29)
--- NOTE | 2018-08-21 20:01 | PN ---
PROGRESS NOTE: DATE OF SERVICE: 08/21/18. INTERVAL HISTORY: The patient says she is feeling somewhat better. She continues to have some discomfort in her left shoulder. The patient was seen along with physical therapist. The patient is agreeable to going to snf for further rehabilitation prior to going home. She has no other complaints. PHYSICAL EXAMINATION: Vital Signs: Blood pressure 139/86, pulse 73, respirations 18, temperature 97.3, O2 sat 98% on room air. She is an elderly female, lying in bed, in no acute distress. Skin is warm and dry. Chest: Clear. Heart: Normal S1, S2. No murmurs, gallops, or rubs. Abdomen is soft, nontender. Extremities are without calf tenderness or edema. Range of motion of the left arm is slightly diminished with pain on internal and external rotation and mild tenderness to palpation laterally. LABORATORY DATA: CBC: WBC 7.6, H and H 10.4/32, MCV 92, PLT 178K. Sodium 140 , potassium 3.9, chloride 114, CO2 of 23, BUN and creatinine 24/1.0, glucose 82 , calcium 8.2. CRP 13.94, down from 64.23 on 08/18/18. Urine culture positive for Klebsiella pneumoniae, sensitive to all antibiotics tested except for ampicillin and nitrofurantoin. Intake and output: 4505/? IMPRESSION AND PLAN: 1. Urinary tract infection, on ceftriaxone. We will continue for now and plan to switch to p.o. antibiotics prior to discharge. 2. Disposition: Plan is for [facility] on 08/22/18. [id number]/[facility] #: [id number] [facility]PITALFloyd
[2018-08-21] MEDS: Acetaminophen TAB* 325 MG PO PRN (21:02)
[2018-08-21] MEDS: cefTRIAXone(*) 1 GM in NS 0.9% 50 ML* 50 ML IVPB SCH (21:24)
[2018-08-22] MEDS: NS 0.9% 1000 ML** 1,000 ML IV SCH (02:38)
[2018-08-22] MEDS: Acetaminophen TAB* 325 MG PO PRN (04:02)
[2018-08-22 06:43] VITALS: BP 159/83
[2018-08-22] MEDS: Clopidogrel TAB* 75 MG PO SCH (09:35)
[2018-08-22] MEDS: Verapamil SR TAB* 240 MG PO SCH (09:35)
[2018-08-22] MEDS: amLODIPine TAB* 5 MG PO SCH (09:35)
[2018-08-22] MEDS: Pantoprazole TAB * 40 MG TAB PO SCH (09:35)
--- NOTE | 2018-08-22 11:44 | TRS ---
CC: Nilsa Valencia MD; [facility]* TRANSFER SUMMARY: DATE OF ADMISSION: 08/18/18 DATE OF TRANSFER: 08/22/18 TRANSFER DIAGNOSES: 1. Urinary tract infection, Klebsiella pneumoniae. 2. Medication noncompliance. 3. History of cerebrovascular accident. 4. Hypertension. 5. Rheumatoid arthritis, on Enbrel. 6. History of aneurysm repair, abdominal aortic and stenting of popliteal and iliac aneurysms. 7. Hyperlipidemia. 8. Osteoporosis. 9. History of irritable bowel syndrome. 10. Chronic kidney disease, stage 3. 11. Allergic rhinitis. 12. Hypokalemia, resolved. 13. History of positive PPD. 14. History of colonic polyp. 15. History of anemia. 16. Aortic stenosis. 17. Scoliosis. 18. Anemia of chronic disease. 19. Elevated troponins, likely due to CKD. 20. Left shoulder pain status post fall without fracture. HISTORY: Meliza Rodríguez is an 83-year-old woman admitted with weakness after falling with a urinary tract infection. Please see the dictated admission note for details of the present illness, past medical history, family history, social and personal history, review of systems, and physical examination. LABORATORY DATA: CBC: WBC 11.7, H and H 14/44, MCV 91, PLT 212,000. CBC prior to discharge on 08/21/18: WBC 7.6, H and H 10.4/32, MCV 92, PLT 178,000. PTT 27.7. Chemistries on 08/18/18: Sodium 141, potassium 4.2, chloride 104, CO2 24, BUN and creatinine 44/1.09, glucose 129, rest of her comprehensive metabolic panel was within normal limits. TSH was normal at 0.69. BNP was slightly elevated at 355. CRP was 64.23 came down to 13.94 on 08/21/18. Troponins were 0.09, 0.10, 0.10, 0.09. Potassium went down as low as 3 on 08/20, was 3.9 on 08/21/18. Microbiology urine culture grew out Klebsiella pneumoniae resistant to ampicillin and nitrofurantoin. IMAGING: Brain CT showed no acute findings. Diffuse involutional changes and chronic small vessel changes were noted. Chest x-ray on 08/18/18 showed stable torturous ectatic aorta, COPD, no active pulmonary disease. Shoulder x-ray on 08/18/18 showed probable nondisplaced oblique fracture of the proximal humerus, osteopenia, osteoarthritis. Findings consistent with chronic rotator cuff injury, but then upper extremity CT on 08/18/18 showed no fracture. Osteopenia , osteoarthritis. Did not confirm fracture. Cardiovascular: EKG showed normal sinus rhythm, abnormal R-wave progression, early transition, otherwise normal EKG. HOSPITAL COURSE: The patient was admitted. She was treated with ceftriaxone for a urinary tract infection. She improved clinically. Temperature high was 100.2 on 08/19. She was afebrile thereafter. She was taken off Enbrel. She was DNR. DVT prophylaxis was given with Lovenox subcu. She was continued on her other routine medications. Her blood pressure was initially elevated, came down , was low at times to 95/56. Prior to discharge, her blood pressure was slightly elevated at 159/83. Her chlorthalidone had been held. At the time of discharge, her diet should be regular. She is being transferred to [facility] for physical therapy rehab. The plan is then for her to go to [facility]. DISCHARGE MEDICATIONS: Her medications at the time of discharge are as follows: 1. Chlorthalidone 25 mg daily. 2. Clopidogrel 75 mg daily. 3. Atorvastatin 40 mg daily. 4. Acetaminophen 650 q.4 h p.r.n. pain. 5. Verapamil 240 mg daily. 6. Pantoprazole 40 mg daily. 7. Losartan 100 mg daily. 8. Amlodipine 5 mg daily. 9. Verapamil 240 daily. 10. Senna 1 tab daily p.r.n. 11. Docusate 100 mg b.i.d. p.r.n. She should resume Enbrel in about 2 to 3 weeks. She will be going to [facility]. I will be her attending physician after she leaves [facility]. Other medications are: 1. Alendronate 70 mg weekly. 2. Fluticasone nasal spray 2 sprays each nostril daily as needed for allergies. Please call me if any questions arise regarding her care while she is at the [facility] at [phone]. [id number]/[facility] #: [id number] [facility]
== END 2018-08-22 12:30 | DRG 690 ==
LOC: ED 12:39 → MED 17:00
PROVIDERS: ADMIT Internal Medicine; ATTEND Internal Medicine Geriatric Medicine
DX: N39.0 Urinary tract infection, site not specified (principal); B96.1 Klebsiella pneumoniae [K. pneumoniae] as the cause of diseases classified elsewhere; Z16.11 Resistance to penicillins; M19.012 Primary osteoarthritis, left shoulder; M85.812 Other specified disorders of bone density and structure, left shoulder; Z66 Do not resuscitate; N18.3 Chronic kidney disease, stage 3 (moderate); D63.1 Anemia in chronic kidney disease; M41.9 Scoliosis, unspecified; I35.0 Nonrheumatic aortic (valve) stenosis; K58.9 Irritable bowel syndrome, unspecified; M81.0 Age-related osteoporosis without current pathological fracture; M06.9 Rheumatoid arthritis, unspecified; E78.5 Hyperlipidemia, unspecified; W06.XXXA Fall from bed, initial encounter; I73.9 Peripheral vascular disease, unspecified; K21.9 Gastro-esophageal reflux disease without esophagitis; G89.29 Other chronic pain; J30.9 Allergic rhinitis, unspecified; E87.6 Hypokalemia; E78.00 Pure hypercholesterolemia, unspecified; J30.2 Other seasonal allergic rhinitis; Z96.653 Presence of artificial knee joint, bilateral; R62.7 Adult failure to thrive; I12.9 Hypertensive chronic kidney disease with stage 1 through stage 4 chronic kidney disease, or unspecified chronic kidney disease; M19.90 Unspecified osteoarthritis, unspecified site; E86.0 Dehydration; Z86.73 Personal history of transient ischemic attack (TIA), and cerebral infarction without residual deficits; Z91.14 Patient's other noncompliance with medication regimen; Y92.9 Unspecified place or not applicable; Z86.010 Personal history of colon polyps; Z79.02 Long term (current) use of antithrombotics/antiplatelets; Z98.51 Tubal ligation status; Z72.89 Other problems related to lifestyle; Z88.0 Allergy status to penicillin; Z88.2 Allergy status to sulfonamides; Z68.21 Body mass index [BMI] 21.0-21.9, adult
CPT/HCPCS: 36415; 70450; 71045; 80048; 80053; 81003; 81015; 82270; 82550; 83605; 83735; 83880; 84443; 84484; 85025; 85730; 86140; 87077; 87086; 87186; 93005; 99284; A9270-GY; G8978-GP-CJ; G8979-GP-CH; J0696; J1650; J2270

== ENCOUNTER 2018-09-16 14:30 | Emergency (ER) | payer MEDICARE, OTHER ==
[2018-09-16] MEDS ORDERED: NS 0.9% 1000 ML** 1,000 ML IV ONE (14:37)
--- NOTE | 2018-09-16 14:46 | ED ---
Dizziness - HPI Summary HPI Summary: The patient is an 83 y/o F arriving by ambulance to [facility] with a chief complaint of sudden onset dizziness this afternoon. She reports that she was with her family eating at [employer] getting ready for a trip to drive to [place] when they left the restaurant, and the patient suddenly became dizzy. She did not fall, and she did not have LOC. In the ED, she c/o dehydration. She denies nausea, abd pain, headache, CP, and palpitations. She is not currently in any pain. Hx of HTN (Calan), HLD, syncope, PNA, GERD, headaches, TIA. Nonsmoker, weekly EtOH, no substance use. - History Of Current Complaint Stated Complaint: LOSS OF CONSCIOUSNESS PER SON Hx Obtained From: Patient Onset/Duration: Resolved Timing: Minutes Severity Initially: Moderate Severity Currently: Mild Character: Dizzy Aggravating Factor(s): Nothing Alleviating Factor(s): Rest Associated Signs And Symptoms: Positive: Other: - POSITIVE: dehydration; NEGATIVE: near syncope without LOC. Negative: Nausea, Chest Pain, Palpitations - Allergies/Home Medications Allergies/Adverse Reactions: Allergies Allergy/AdvReac Type Severity Reaction Status Date / Time Penicillins Allergy Intermediate Rash Verified 01/03/18 18:54 Sulfa (Sulfonamide Allergy Intermediate Rash Verified 01/03/18 18:54 Antibiotics) PMH/Surg Hx/FS Hx/Imm Hx Endocrine/Hematology History: Denies: Hx Diabetes, Hx Thyroid Disease, Hx Anemia Cardiovascular History: Reports: Hx Hypercholesterolemia, Hx Hypertension, Hx Syncope Denies: Hx Pacemaker/ICD Respiratory History: Reports: Hx Pneumonia, Hx Seasonal Allergies Denies: Hx Asthma, Hx Chronic Obstructive Pulmonary Disease (COPD), Hx Sleep Apnea GI History: Reports: Hx Gastroesophageal Reflux Disease, Hx Hiatal Hernia, Other GI Disorders - chronic constipation Denies: Hx Jaundice, Hx Ulcer History: Denies: Hx Dialysis Musculoskeletal History: Reports: Hx Arthritis - osteoarthritis, Hx Back Problems - 3 vertebrae fractures Denies: Hx Osteoporosis Sensory History: Reports: Hx Contacts or Glasses Denies: Hx Eye Injury, Hx Legally Blind, Hx Vision Problem, Hx Hearing Aid, Hx Hearing Problem, Other Sensory Impairments Opthamlomology History: Reports: Hx Contacts or Glasses Denies: Hx Eye Injury, Hx Legally Blind, Hx Vision Problem, Other Sensory Impairments Neurological History: Reports: Hx Headaches, Hx Transient Ischemic Attacks (TIA) Denies: Hx Dementia, Hx Seizures Psychiatric History: Denies: Hx Panic Disorder - Cancer History Cancer Type, Location and Year: None reported Hx Chemotherapy: No Hx Radiation Therapy: No - Surgical History Surgery Procedure, Year, and Place: hiatal hernia repair x2 2009, bilat. knee replacements.2015 aortic aneursym graft, tubal, tonsils Hx Anesthesia Reactions: No - Immunization History Date of Influenza Vaccine: 11/2017 Infectious Disease History: Denies: Hx Clostridium Difficile, Hx Hepatitis, Hx Human Immunodeficiency Virus (HIV), Hx of Known/Suspected MRSA, Hx Shingles, Hx Tuberculosis - WAS EXPOSED A CHILD, History Other Infectious Disease - Family History Known Family History: Positive: Hypertension Negative: Blood Disorder - Social History Alcohol Use: Weekly Alcohol Amount: WINE W/ MEALS Hx Substance Use: No Substance Use Type: Reports: None Hx Tobacco Use: No Smoking Status (MU): Never Smoked Tobacco Do You Chew or Dip Tobacco: No Have You Chewed or Dipped Tobacco in the LAST YEAR: No Have You Smoked in the Last Year: No Review of Systems Positive: Other - dehydrated Negative: Palpitations, Chest Pain Negative: Abdominal Pain, Nausea Neurological: Other - dizziness, near syncope without LOC Negative: Headache All Other Systems Reviewed And Are Negative: Yes Physical Exam - Summary Physical Exam Summary: Appearance: Well-appearing, Well-nourished, lying in bed comfortably Skin: Warm, dry, no obvious rash Eyes: sclera anicteric, no conjunctival pallor ENT: mucous membranes moist, pharynx appears normal Neck: Supple, nontender Respiratory: Clear to auscultation, no signs of respiratory distress Cardiovascular: Normal S1, S2. No murmurs. Normal distal pulses in tibial and radial bilaterally. Abdomen: Soft, nontender, normal active bowel sounds present Musculoskeletal: Normal, Strength/ROM Intact Neurological: A&Ox3, awake and alert, mentation is normal, speech is fluent and appropriate Psychiatric: affect is normal, does not appear anxious or depressed Triage Information Reviewed: Yes Vital Signs Reviewed: Yes Diagnostics - Laboratory Result Diagrams: 09/16/18 14:50 09/16/18 14:50 Lab Statement: Any lab studies that have been ordered have been reviewed, and results considered in the medical decision making process. - EKG 1441 Cardiac Rate: NL - 81 BPM EKG Rhythm: Sinus Rhythm Summary of EKG Findings: NSR at 81 BPM, P waves, QRS complex, and T waves are within normal limits, T waves and intervals are normal, no ischemic changes. This is a normal EKG. Re-Evaluation - Re-Evaluation First Eval Re-Evaluation Time: 15:49 Change: Improved Comment: The patient is feeling better. We discussed discharge home. Dizzy Course/Dx - Course Course Of Treatment: The patient is an 83 y/o F arriving by ambulance to [facility] with a chief complaint of sudden onset dizziness this afternoon while walking out of a restaurant. She did not fall, and she did not have LOC. In the ED, she c/o dehydration. She denies nausea, abd pain, headache, CP, and palpitations. She is not currently in any pain. Hx of HTN (Calan), HLD, syncope, PNA, GERD, headaches, TIA. Nonsmoker, weekly EtOH, no substance use. Upon physical exam, the patient exhibits no acute abnormalities. In the ED course, the patient was administered Ns. Blood work reveals WBC of 12.8, MPV of 7.0, absolute neuts of 10.7, absolute lymphs of 0.7, absolute monos of 1.3, potassium of 3.1, creatinine of 1.07, BUN/creatinine of 20.6, glucose of 126, and alkaline phosphatase of 105. EKG reveals NSR at 81 BPM without any ischemic changes. As the patient continues to be asymptomatic in the ED, she is cleared for discharge home. She is diagnosed with near syncope. She will follow up with her PCP. She agrees with this plan. - Diagnoses Provider Diagnoses: Near syncope Discharge - Sign-Out/Discharge Documenting (check all that apply): Patient Departure - Patient will be discharged home. Patient Received Moderate/Deep Sedation with Procedure: No - Discharge Plan Condition: Good Disposition: HOME Patient Education Materials: Near Syncope (ED) Referrals: Nilsa Valencia MD [Primary Care Provider] - If Needed - Billing Disposition and Condition Condition: GOOD Disposition: Home - Attestation Statements Document Initiated by Scribe: Yes Documenting Scribe: Deya Kennedy Provider For Whom Jarene is Documenting (Include Credential): Dr. Noé Carr MD Scribe Attestation: Deya Mcgregor scribed for Dr. Noé Carr MD on 09/19/18 at 1937. Scribe Documentation Reviewed: Yes Provider Attestation: The documentation as recorded by the scribe, Deya Knenedy accurately reflects the service I personally performed and the decisions made by me, Dr. Noé Carr MD Status of Scribe Document: Viewed
[2018-09-16 15:05] LABS: Hematocrit 36 % (35-47); Hemoglobin 12.1 g/dL (12.0-16.0); Mean Corpuscular HGB Conc 33 g/dL (31-36); Mean Corpuscular Hemoglobin 30 pg (27-31); Mean Corpuscular Volume 90 fL (80-97); Platelet Count 265 10^3/uL (150-450); Red Blood Count 4.02 10^6 /uL (3.70-4.87); Red Cell Distribution Width 15 % (10-15); White Blood Count 12.8 10^3/uL (3.5-10.8)
[2018-09-16 15:20] LABS: Troponin I 0.01 ng/mL (<0.04)
[2018-09-16 15:21] LABS: Albumin 3.3 g/dL (3.2-5.2); BUN/Creatinine Ratio 20.6 (8-20); Calcium 8.8 mg/dL (8.6-10.3); EGFR African American 59.4 (>60); EGFR Non-African American 49.1 (>60); Globulin 3.2 g/dL (2-4); Potassium 3.1 mmol/L (3.5-5.0); Total Bilirubin 0.6 mg/dL (0.2-1.0); Total Protein 6.5 g/dL (6.4-8.9)
[2018-09-16 15:59] LABS: ABS Lymphocytes 0.7 10^3/ul (1.0-4.8); ABS Monocytes 1.3 10^3/ul (0-0.8); ABS Neutrophils 10.7 10^3/ul (1.5-7.7); Eosinophil % 0.2 %; Lymphocyte % 5.6 %; Nucleated Red Blood Cells % 0.1
[2018-09-16 16:13] VITALS: BP 135/86
[2018-09-16 16:15] LABS: TSH (Thyroid Stimulating Horm) 0.89 mcIU/mL (0.34-5.60)
== END 2018-09-16 16:12 | disposition home or self-care (01) ==
LOC: ED 14:30
DX: R55 Syncope and collapse (principal); I10 Essential (primary) hypertension; Z79.899 Other long term (current) drug therapy
CPT/HCPCS: 36415; 80053; 83605; 83735; 84443; 84484; 85025; 93005; 96360; 99282